=== PATIENT | female | born 1955 | race Hispanic/Latino ===

== ENCOUNTER 2018-07-01 12:26 | Inpatient (IN) | payer MEDICARE ==
[~2018-07-01] VITALS: Ht 170.2 cm; Wt 73.9 kg
[~2018-07-01 12:26] MED LIST: ABILIFY5 MG PO; ALBUTEROL0.63 MG/3 NEB; ALPRAZOLAM0.5 MG PO; ALPRAZOLAM1 MG PO; ARIMIDEX1 MG PO; B-123000 MCG PO; BUPROPION XL300 MG PO; CALCIUM 500+D1 EACH PO; CARISOPRODOL350 MG PO; CLONAZEPAM0.5 MG PO; CRESTOR20 MG PO; CYANOCOBAL1000 MCG/M IV; CYCLOBENZAPRINE5 MG PO; CYMBALTA30 MG PO; CYMBALTA60 MG PO; EVISTA60 MG PO; GABAPENTIN300 MG PO; GLUCOPHAGE1000 MG PO; INTEGRA CAPSUL1 EACH PO; INTEGRA PLUS C1 EACH PO; IPRATROPIU0.2 MG/1 M NEB; LOPRESSOR50 MG PO; LOSARTAN POTASS25 MG PO; LYRICA225 MG PO; MACROBID 100 M100 MG PO; MACRODANTIN50 MG PO; MINOCYCLINE HC100 M1; MIRTAZAPINE30 MG PO; NIASPAN500 MG; NORCO 10-325 T1 EACH PO; PEPCID20 MG PO; PRINIVIL5 MG PO; QUETIAPINE FUM100 MG PO; SEROQUEL XR150 MG PO; SEROQUEL25 MG PO; SEROQUEL400 MG PO; SERTRALINE HCL100 MG PO; SOMA350 MG PO; TRADJENTA5 MG PO; TRAZODONE HCL50 MG PO; ULTRAM50 MG PO; WELLBUTRIN XL300 MG PO; XANAX0.5 MG PO
--- OUTSIDE RECORDS SUMMARY | 2018-07-01 12:30 | XMS REPORT | Clinical Summary ---
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 cyst in the subcapsular posterior right lobe of the liver measuring 18 mm. 3. Extensive postoperative changes in the stomach and changes from a previous cholecystectomy are noted. CT bone Windows: Demonstrate no lytic or blastic lesions.. 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 Images were reviewed in soft tissue and bone detail. CT imaging was performed with iterative reconstruction technique and/or automated exposure control to reduce radiation dose. Comparison: None. Findings: Evaluation of the aerodigestive tract demonstrates no definite exophytic mass, nor areas of focal mass effect noting contrast enhanced study is more sensitive for the detection of mass. . No pathologic cervical lymph nodes by imaging criteria noting contrast enhanced study is more sensitive for the detection of lymphadenopathy. No focal mass of the major salivary glands. Possible right parotid surgery, correlate with surgical history. No dominant thyroid nodule. Right IJ port. Degenerative changes of the cervical spine. For intrathoracic findings, see separate report of chest CT which was performed at the same time but interpreted separately. Impression: Within confines of noncontrast study, no definite focal mass of the visualized aerodigestive tract. No definite pathologic cervical lymph nodes by imaging criteria. 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 Images were reviewed in soft tissue and bone detail. CT imaging was performed with iterative reconstruction technique and/or automated exposure control to reduce radiation dose. Comparison: None. Findings: Evaluation of the aerodigestive tract demonstrates no definite exophytic mass, nor areas of focal mass effect noting contrast enhanced study is more sensitive for the detection of mass. . No pathologic cervical lymph nodes by imaging criteria noting contrast enhanced study is more sensitive for the detection of lymphadenopathy. No focal mass of the major salivary glands. Possible right parotid surgery, correlate with surgical history. No dominant thyroid nodule. Right IJ port. Degenerative changes of the cervical spine. For intrathoracic findings, see separate report of chest CT which was performed at the same time but interpreted separately. Impression: Within confines of noncontrast study, no definite focal mass of the visualized aerodigestive tract. No definite pathologic cervical lymph nodes by imaging criteria. [id number] Performing Organization Address City/State/Zipcode Phone Number [facility] [address] [place] [address] * MRI Brain Wo Contrast (01/03/2018 10:35 AM CDT) Narrative Performed At EXAMINATION:MRI BRAIN WO CONTRAST [facility] CLINICAL HISTORY:C50.919 Malignant neoplasm of unspecified site of unspecified female breast, C80.0 Disseminated malignant neoplasmunspecified, BREAST CANCER WWIDESPREAD METSHEADACHESNAUSEA COMPARISON:CT brain March 04, 2014. FINDINGS: 1. Diffusion images demonstrate no evidence of acute ischemia. 2.Conventional images demonstrate mild nonspecific cerebral white matter microvascular changes. There is mild to moderate cerebral cortical volume loss most pronounced over the frontoparietal high convexities. 3.There is minimal mucosal thickening in the ethmoid sinus. 4.There is mild prominence of the superior ophthalmic veins bilaterally primarily on the left side. There is no evidence of a cavernous sinus mass. There is a partially empty sella which is not significantly enlarged. IMPRESSION: Mild cerebral white matter microvascular changes and volume loss without evidence of an acute abnormality. The microvascular white matter changes are not visible on the prior study. [id number] Procedure Note Interface, Radiology Results Incoming - 01/03/2018 10:49 AM CDT EXAMINATION: MRI BRAIN WO CONTRAST CLINICAL HISTORY: C50.919 Malignant neoplasm of unspecified site of unspecified female breast, C80.0 Disseminated malignant neoplasm unspecified, BREAST CANCER W WIDESPREAD METS HEADACHES NAUSEA COMPARISON: CT brain March 04, 2014. FINDINGS: 1. Diffusion images demonstrate no evidence of acute ischemia. 2. Conventional images demonstrate mild nonspecific cerebral white matter microvascular changes. There is mild to moderate cerebral cortical volume loss most pronounced over the frontoparietal high convexities. 3. There is minimal mucosal thickening in the ethmoid sinus. 4. There is mild prominence of the superior ophthalmic veins bilaterally primarily on the left side. There is no evidence of a cavernous sinus mass. There is a partially empty sella which is not significantly enlarged. IMPRESSION: Mild cerebral white matter microvascular changes and volume loss without evidence of an acute abnormality. The microvascular white matter changes are not visible on the prior study. 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 IMPRESSION: The results of this study expressed as bone mineral density (BMD) were as follows: AP spine (L1-L4) BMD: 1.062 g/cm2 T-Score: 0.1 WHO Classification: Normal. Right Femur (Total): BMD: 0.825 g/cm2 T-Score: -1 WHO Classification: Normal Left Femur (Total): BMD: 0.805 g/cm2 T-Score: -1.1 WHO Classification: Osteopenia A copy of this scans including a report detailing these results will follow. 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 IMPRESSION: The results of this study expressed as bone mineral density (BMD) were as follows: AP spine (L1-L4) BMD: 1.062 g/cm2 T-Score: 0.1 WHO Classification: Normal. Right Femur (Total): BMD: 0.825 g/cm2 T-Score: -1 WHO Classification: Normal Left Femur (Total): BMD: 0.805 g/cm2 T-Score: -1.1 WHO Classification: Osteopenia A copy of this scans including a report detailing these results will follow. Note: The world health organization (WHO) has classified the patient's T-score as follows: Above (-1) as normal (-1) to (-2.5) as low (osteopenia) Below (-2.5) as abnormally low (osteoporosis, increased fracture risk) [id number] Performing Organization Address City/State/Zipcode Phone Number [facility] [address] [place] [address] * Echocardiogram complete w contrast and 3D if needed (11/10/2017 10:02 AM CDT) AoV Area, Vmax 2.39 cm2 [facility] AoV Area, VTI 2.63 cm2 [facility] AoV Mean PG 2.89 mmHg [facility] AoV Peak PG 5.73 mmHg [facility] AoV Vmax 1.20 m/s [facility] AoV VTI 0.25 m [facility] BSA Sanchez 1.88 m2 [facility] BSA 1.84 m2 [facility] IVS,d 1.19 cm [facility] IVS/LVPW,2D 1.23 [facility] LV,d 3.89 cm [facility] LV EF,2D 67.16 % [facility] LV EF,A2C 56.96 % [facility] LV EF,A4C 57.31 % [facility] LV EF,BP 59.25 % [facility] Jossue Wittenberg,d A2C 6.66 cm [facility] Jossue Wittenberg,d A4C 7.50 cm [facility] Jossue Wittenberg,s A2C 5.75 cm [facility] Jossue Wittenberg,s A4C 5.66 cm [facility] LV,s 2.68 cm [facility] LV SV,A2C 49.36 % [facility] LV SV,A4C 63.63 % [facility] LV SV,BP 61.25 % [facility] LV Vol,d A2C 86.65 mL [facility] LV Vol,d A4C 111.03 ml [facility] LV Vol,d BP 103.37 ml [facility] LV Vol,s A2C 37.30 mL [facility] LV Vol,s A4C 47.40 ml [facility] LV Vol,s BP 42.12 nl [facility] LVOT area 3.05 cm2 [facility] LVOT Diam,S 1.97 cm [facility] LVOT Vmax 0.94 m/s [facility] LVOT VTI 0.21 m [facility] LVPWD,d 0.97 cm [facility] TR Vpeak 2.74 mm/s [facility] MV E A ratio 0.81 mmHg [facility] RA pressure 5.00 mmHg [facility] TR pk grad 23.03 mmHg [facility] AoV area i VTI BSA Claudio 1.42 cm2/m2 [facility] LV SI MOD BP BSA [place] 33.22 ml/m2 [facility] LV Vol Index s bpmod BSA 56.06 ml/m2 [facility] Claudio PV Vmn 22.84 m/s [facility] MR Vmax 4.25 m/s [facility] MR peak grad 72.24 mmHg [facility] BMI 25.22 kg/m2 [facility] E wave decelartion time 216.05 msec [facility] MV Peak A Antony 0.96 m/s [facility] MV valve area p 1/2 3.51 cm2 [facility] method MV Peak E Antony 0.78 m/s [facility] MV stenosis pressure 1/2 62.65 ms [facility] time AV LVOT peak gradient 3.50 mmHg [facility] RVSP 35.11 mmHg [facility] LV SYS VOL 26.61 ml [facility] LV MASSEY VOL 65.51 ml [facility] LA area s A4C 20.44 cm2 [facility] LV SI Teich 2D 21.09 ml/m2 [facility] LV SV Teich 2D 38.89 ml [facility] LV Vol s Teich PSAX 26.61 ml [facility] LVOT SI 35.01 ml/m2 [facility] BSA Haycock 1.87 m2 [facility] AoV Cusp sep 1.49 [facility] AoV Vmn 0.81 [facility] IVS s 2D 1.48 [facility] LV FS Teich 2D 31.01 [facility] MV AE ratio 1.23 [facility] LA Ao Ratio Mmode 1.42 [facility] LV FS Cube 2D 31.01 [facility] LVOT Vmn 0.63 [facility] Pt Size 170.18 [facility] Pt Wt 73.03 [facility] PV AT 122.74 msec [facility] Aov area Vmn 2.38 cm2 [facility] LVOT mean grad 1.71 mmHg [facility] MAX Pred HR 157.43 [facility] 85 of MPHR 133.82 [facility] AoV area I VMN bsa 1.29 cm2/m2 [facility] Calc MPHR 157.43 bpm [facility] IVS pct thck PLAX 24.70 % [facility] LV SI Cube 2D 21.44 ml/m2 [facility] LV SV Cube 2D 39.53 ml [facility] LV vol d cube 2D 58.86 ml [facility] LV vol s cube 2D 19.33 ml [facility] LVPW pct thck PLAX 47.96 % [facility] LVPW s PLAX 1.43 cm [facility] MV Decel slope 3.63 m/s2 [facility] Pred Exer Dur R1 7.63 [facility] Pred METS R1 6.57 [facility] Velocity Ratio (V1/V2) 0.78 m/s [facility] EF 59.38 % [facility] E/A ratio 0.81 [facility] LV Systolic Volume Index 20.27 mL/m2 [facility] LV Diastolic Volume Index 47.09 mL/m2 [facility] LA volume 57.0 cm3 [facility] LA Volume Index 30.98 mL/m2 [facility] LA Area d A4C 52 cm2 [facility] LA diam s 4.10 cm [facility] Aortic Root 2.85 cm [facility] D E excurs 1.10 [facility] E f slope 0.04 [facility] E prime lat 0.10 [facility] E jaret sept 0.08 [facility] PV acc T slope 4.50 [facility] Narrative Performed At [facility] The left ventricle chamber size is normal. Left Ventricular ejection fraction is 55 - 60%. No pericardial effusion Spectral Doppler shows impaired relaxation pattern of left ventricular diastolic filling. Performing Organization Address City/State/Zipcode Phone Number [facility] [address] [place] [address] after 06/30/2017 Insurance Payer Benefit Subscriber ID Type Phone Address Plan / Group MEDICARE MEDICARE xxxxxxxxxxx Medicare [place], [place] PART A [place] B MEDICAID MEDICAID xxxxxxxxx Medicaid Advance Directives Patient has advance care planning documents, and code status on file. For more i nformation, please contact: Jorge Alcala [address] [place] [address] Date Inactivated Comments Code Status Date Activated 10/21/2016 10:03 PM Full Code 10/17/2016 4:57 PM Code Status decision reached by: Patient
--- OUTSIDE RECORDS SUMMARY | 2018-07-01 12:30 | XMS REPORT ---
[facility] Address Unknown Phone Unavailable Care Team Providers Care Visitor Use Assistant Name Role Phone Erendira MARIA Unavailable Unavailable Problems This patient has no known problems. Allergies, Adverse Reactions, Alerts This patient has no known allergies or adverse reactions. Medications This patient has no known medications. Results Test Description Test Time Test Comments Text Results Atomic Results Result Comments CT BRAIN WO [place] [address] Patient Name: ARANZA KUHN MR #: [id number] : 1955 Age/Sex: 61/F Req #: [id number] Adm Physician: Ordered by: GENEVA MARIA MD Report #: [id number] Location: ER Room/Bed: Procedure: [id number] CT/CT BRAIN WO Exam Date: 11/02/16 Exam Time: 1810 REPORT STATUS: Signed Examination: CT BRAIN WITHOUT CONTRAST History:61-year-old female with fall and left-sided head injury. Comparison studies:Head CT performed May 28, 2016 Technique: Axial images were obtained from the skull base to the vertex. Coronal and sagittal images reconstructed from the axial data. Intravenous contrast: None Findings: Scalp: No abnormalities. Bones: No fractures, blastic or lytic lesions. Brain sulci: Appropriate for age. Ventricles: Normal in size and configuration. No hydrocephalus. Extra-axial space: No abnormalities. Parenchyma: Again demonstrated are subtle confluent areas of hypoattenuation in the periventricular and subcortical white matter, nonspecific. No masses, hemorrhage, or acute cortical-based vascular insults. Sellar/suprasellar region: No abnormalities. Cr aniocervical junction: Patent foramen magnum. No Chiari one malformation. Incidental findings: None. Impression: 1. No new or acute intracranial abnormality. No change from prior head CT performed May 28, 2016. 2. Unchanged mild chronic microvascular ischemic change. Signed by: Dr. Ginger Gold M.D. on 11/02/2016 6:36 PM Dictated By: GINGER ROJAS MD 35 Transcribed By: ZAC on 11/02/161835 COPY TO: GENEVA MARIA MD CT CERVICAL SPINE WO [place] [address] Patient Name: ARANZA KUHN MR #: [id number] : 1955 Age/Sex: 61/F Req #: [id number] Adm Physician: Ordered by: GENEVA MARIA MD Report #: [id number] Location: ER Room/Bed: Procedure: [id number] CT/CT CERVICAL SPINE WO Exam Date: 11/02/16 Exam Time: 1809 REPORT STATUS: Signed Examination: CT CERVICAL SPINE WITHOUT CONTRAST HISTORY:Neck pain. Fall. COMPARISON:None. TECHNIQUE: Multidetector helical axial images were obtained without contrast from the foramen magnum to T1. Coronal and sagittal reforma tted images were done. Bone and soft tissue windows were evaluated. FINDINGS: Alignment:Normal alignment with straightening of normal lordosis. Vertebrae: Normal height and density. No acute fracture, infection or neoplasm. Disc space heights: Normal height. Caliber of spinal canal: Developmentally normal. Soft tissues: No abnormality. 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 C5-C6: Asymmetric to the left disc osteophyte complex and bilateral uncovertebral arthropathy results in mild right and moderate left neural foraminal narrowing and mild canal stenosis. The remaining cervical levels demonstrate no disc bulge/ herniation or foraminal or canal stenosis. IMPRESSION: 1. No acute abnormality. 2. Degenerative changes at C5-C6. Signed by: Dr. Ginger Gold M.D. on 11/02/2016 6:41 PM Dictated By: GINGER ROJAS MD 40 COPY TO: GENEVA MARIA MD FOREARM LEFT 2 VIEW [place] [address] Patient Name: ARANZA KUHN MR #: [id number] : 1955 Age/Sex: 61/F Req #: [id number] [facility] Physician: Ordered by: GENEVA MARIA MD Report #: [id number] Location: ER Room/Bed: Procedure: [id number] DX/FOREARM LEFT 2 VIEW Exam Date: 11/02/16 Exam Time: 1824 REPORT STATUS: Signed PROCEDURE: X-RAY LEFT FOREARM, TWO VIEWS COMPARISON: None. INDICATIONS: FALL FINDINGS: There are no fractures, dislocations, lytic or blastic lesions. The bones are well-mineralized. The soft-tissues are unremarkable. CONCLUSION: No acute radiographic abnormality. Dictated by: Kg Foster M.D. on 11/02/2016 at 18:51 Electronically approved by: Kg Foster M.D. on 11/02/2016 at 18:51 Dictated By: KG FOSTER MD 50 Transcribed By: NORMA on 11/02/161850 COPY TO: GENEVA MARIA MD HAND 3+ VIEWS LEFT [place] [address] Patient Name: ARANZA KUHN MR #: [id number] : 1955 Age/Sex: 61/F Req #: [id number] Adm Physician: Ordered by: GENEVA MARIA MD Report #: [id number] Location: ER Room/Bed: Procedure: [id number] DX/HAND 3+ VIEWS LEFT Exam Date: 11/02/16 Exam Time: 1824 REPORT STATUS: Signed PROCEDURE: X-RAY LEFT HAND, THREE OR MORE VIEWS COMPARISON: None. INDICATIONS: FALL FINDINGS: There are no fractures, dislocations, lytic or blastic lesions. The bones are well-mineralized. The soft-tissues are unremarkable. CONCLUSION: No acute radiographic abnormality. Dictated by: Kg Foster M.D. on 11/02/2016 at 18:53 Electronically approved by: Kg Foster M.D. on 11/02/2016 at 18:53 Dictated By: KG FOSTER MD 52 Transcribed By: NORMA on 11/02/161852 COPY TO: GENEVA MARIA MD
[2018-07-01] MEDS ORDERED: VANCOMYCIN 1GM/NS 250 ML 250 ML IV ONE (13:00)
[2018-07-01] MEDS ORDERED: LEVOFLOXACIN 750MG/D5W 150ML 150 ML IV SCH (13:00)
[2018-07-01 14:26] LABS: BILIRUBIN,URINE NEGATIVE (NEGATIVE); CLARITY,URINE CLEAR (CLEAR); COLOR,URINE STRAW (YELLOW); KETONES,URINE NEGATIVE (NEGATIVE); LEUKOCYTE ESTERASE ,URINE NEGATIVE (NEGATIVE); NITRITE,URINE NEGATIVE (NEGATIVE); PROTEIN,URINE DIPSTICK NEGATIVE (NEGATIVE); URINE UROBILINOGEN 0.2 mg/dL (0.2 - 1)
[2018-07-01] MEDS ORDERED: ALBUTEROL SULF 0.083% NEB SOLN 3 ML NEB NEB PRN (14:45)
[2018-07-01] MEDS ORDERED: IPRATROPIUM BROMIDE 0.02% 2.5 ML NEB NEB PRN (14:45)
[2018-07-01 14:59] LABS: WBC,URINE (MAN) 0-5 /HPF (0-5)
[2018-07-01 15:00] LABS: EPITHELIAL CELLS,URINE RARE /LPF; RBC,URINE 0-5 /HPF (0-5)
[2018-07-01 15:02] LABS: TRANSITIONAL EPI CELLS,URINE RARE
[2018-07-01 15:20] VITALS: BP 146/82
[2018-07-01] MEDS ORDERED: ACETAMINOPHEN 1000 MG/100 ML IV STA (15:43)
--- NOTE | 2018-07-01 15:46 | Diagnostic Imaging Report ---
EXAM: CHEST SINGLE (PORTABLE) DATE: 07/01/2018 3:21 PM INDICATION: ^PLEURAL EFFUSION COMPARISON: No previous exam available on PACS FINDINGS: Lines and tubes: There is a right chest port with catheter extending to the mid SVC level. The heart is upper normal size. No pulmonary consolidation, pleural effusion or pneumothorax. There are patchy opacities at the lung bases likely representing atelectasis, possibly accentuated by low lung volumes. Mild elevation of the left hemidiaphragm. Upper abdomen unremarkable with surgical clips seen in the left upper quadrant. No acute bony abnormality. IMPRESSION: Borderline heart size. Patchy opacities the lung bases likely due to atelectasis. In the proper clinical setting this may represent early multifocal pneumonia. Signed by: Dr. Santino Baez M.D. on 07/01/2018 3:43 PM
[2018-07-01 15:53] LABS: BASOPHILS % 0.2 % (0.0-1.0); EOSINOPHILS # (AUTO) 0.1 (0.0-0.4); EOSINOPHILS % 1.5 % (0.0-6.0); HEMATOCRIT 34.1 % (34.2-44.1); HEMOGLOBIN 11.2 g/dL (12.0-16.0); LYMPHOCYTES # (AUTO) 0.9 (1.0-3.2); LYMPHOCYTES % 9.1 % (18.0-39.1); MEAN CORPUSCULAR HGB CONC 32.8 g/dL (31-35); MEAN CORPUSCULAR VOLUME 91.4 fL (81-99); MONOCYTES # (AUTO) 0.6 (0.2-0.8); MONOCYTES % 6.3 % (4.4-11.3); NEUTROPHILS # (AUTO) 7.8 (2.1-6.9); NEUTROPHILS % 82.4 % (38.7-80.0); PLATELET COUNT 222 x10e3/uL (140-360); RED BLOOD COUNT 3.73 x10e6/uL (3.6-5.1); RED CELL DISTRIBUTION WIDTH 13.7 % (11.7-14.4)
[2018-07-01 16:03] VITALS: BP 146/78
[2018-07-01] MEDS: SODIUM CHLORIDE 0.9% 1000ML 1,000 ML IV SCH ×3 (16:05→21:03)
--- NOTE | 2018-07-01 16:10 | Diagnostic Imaging Report ---
EXAM: CT Chest WITHOUT contrast 07/01/2018 1:00 PM INDICATION: Pneumonia COMPARISON: Chest x-ray, 07/01/2018; chest CT, 05/26/2016 TECHNIQUE: Chest was scanned utilizing a multidetector helical scanner from the lung apex through the level of the adrenal glands without administration of IV contrast. Absence of intravenous contrast decreases sensitivity for detection of lymphadenopathy and vascular pathology. Coronal and sagittal reformations were obtained. Routine protocol was performed. Dose modulation, iterative reconstruction, and/or weight based adjustment of the mA/kV was utilized to reduce the radiation dose to as low as reasonably achievable. IV CONTRAST: None RADIATION DOSE: Total DLP: 544.72 mGy*cm Estimated effective dose: (DLP x 0.014 x size factor) mSv COMPLICATIONS: None FINDINGS: LINES/ TUBES: There is a right chest port with IJ catheter extending to the mid superior vena cava. LUNGS AND AIRWAYS: There are mild centrilobular emphysematous changes. There is extensive patchy airspace opacity in the base of the right upper lobe and throughout the right lower lobe. This is present to a slightly lesser degree throughout the left lower lobe. Trachea and main bronchi are clear. PLEURA: No pleural effusion or pneumothorax. HEART AND MEDIASTINUM: The thyroid gland is normal. No mediastinal, hilar or axillary lymphadenopathy. Small prevascular and precarinal nodes are stable from last exam. The heart is normal in size.. There is no pericardial effusion. Left hemidiaphragm is elevated. No dilatation of the thoracic aorta or main pulmonary artery. The esophagus is noted to be moderately distended and fluid-filled, similar to previous exam. UPPER ABDOMEN: Included portions of the unenhanced liver shows a 1.3 cm hypodensity in the posterior right lobe which is ill-defined due to artifact. This appears to been present on the previous exam. Surgical clips are seen in the gallbladder fossa. Splenic calcified granulomata are noted. No adrenal nodules. Again noted are surgical changes to the stomach. BONES: No acute or suspicious bony lesions. SOFT TISSUES: Superficial surrounding soft tissue shows postoperative changes in the left breast. Small nodule in the right breast unchanged in appearance from previous CT. IMPRESSION: 1. Extensive ill-defined groundglass opacities in the right upper and lower lobes, and to a lesser extent in the left upper and lower lower lobes. Findings compatible with multifocal pneumonia. In view of distended, fluid-filled esophagus, aspiration is a concern. Consider follow-up CT after treatment to assure there are no underlying masses. 2. Stable hypodensity in the right lobe of the liver. This is less well seen than on previous exam because of artifact. Previously this was felt to be a fluid-filled abnormality. 3. Interval placement of right chest port since previous CT. 4. Postoperative changes of the left breast. Small nodular density in the right breast is unchanged from the previous CT. This may be further evaluated with mammography. Signed by: Dr. Santino Baez M.D. on 07/01/2018 4:07 PM
[2018-07-01 16:15] LABS: ALANINE AMINOTRANSFERASE 28 IU/L (0-55); ALBUMIN 3.2 g/dL (3.5-5.0); ALBUMIN/GLOBULIN RATIO 1.1 (0.8-2.0); ALKALINE PHOSPHATASE 95 IU/L (40-150); ANION GAP 12.1 mmol/L (8-16); BLOOD UREA NITROGEN 12 mg/dL (7-26); BUN/CREATININE RATIO 17 (6-25); CALCIUM 7.8 mg/dL (8.4-10.2); CARBON DIOXIDE 23 mmol/L (22-29); CHLORIDE 107 mmol/L (98-107); CREATININE, SERUM 0.71 mg/dL (0.57-1.11); EST GLOMERULAR FILTRATION RATE > 60 ML/MIN (60-); GLUCOSE 139 mg/dL (74-118); POTASSIUM 3.1 mmol/L (3.5-5.1); SODIUM 139 mmol/L (136-145)
[2018-07-01 16:16] VITALS: BP 141/71
[2018-07-01] MEDS: DOXYCYCLINE 100MG/NS 100ML 100 ML IV SCH (16:16)
[2018-07-01] MEDS: MEROPENEM 1GM 100 ML IV SCH ×2 (16:16→21:38)
[2018-07-01 16:20] LABS: INR 0.98; PROTHROMBIN TIME 13.5 seconds (11.9-14.5)
--- NOTE | 2018-07-01 16:25 | NUR ---
recvd pt, post rapid response from CT where pt was reportedly change in status from when picked up for testing. pt currently stable, receiving IVF and abx. MD notified of test and lab results, MD on unit.
[2018-07-01] MEDS: IRON FUM PO SCH (16:41)
[2018-07-01] MEDS: VIT B PO SCH (16:41)
[2018-07-01] MEDS: GABAPENTIN 300 MG CAP PO SCH ×2 (16:41→20:56)
[2018-07-01] MEDS: C NO 9 PO SCH (16:41)
[2018-07-01] MEDS: [UNRECOGNIZED DRUG - OTHER] PO SCH (16:41)
[2018-07-01] MEDS: HYDROCODONE/APAP 10MG-325MG TAB PO PRN ×2 (16:42→20:56)
[2018-07-01] MEDS ORDERED: POTASSIUM CHLORIDE 20 MEQ TAB CR PO NR (17:00)
[2018-07-01] MEDS ORDERED: AMBIEN10 MG PO (18:00)
[2018-07-01] MEDS ORDERED: MAGNESIUM OXID400 MG PO (18:00)
[2018-07-01] MEDS ORDERED: VOLTAREN100 GM PO (18:00)
[2018-07-01] MEDS ORDERED: MULTI-VITAMIN1 EACH PO (18:00)
[2018-07-01] MEDS ORDERED: MELATONIN 1 MG1 EACH PEG (18:00)
[2018-07-01] MEDS ORDERED: REQUIP0.25 MG PO (18:00)
[2018-07-01] MEDS ORDERED: CALCIUM ACETAT667 MG PO (18:00)
[2018-07-01] MEDS ORDERED: PERCOCET 10-321 EACH PEG (18:00)
[2018-07-01] MEDS ORDERED: ANASTROZOLE1 MG PEG (18:00)
[2018-07-01] MEDS ORDERED: VITAMIN B-121000 MC1 PO (18:00)
[2018-07-01 19:20] VITALS: BP 109/58
[2018-07-01] MEDS: DULOXETINE HCL 30 MG DELAYED RELEASE PO SCH (20:55)
[2018-07-01] MEDS: QUETIAPINE FUMARATE 100 MG PO SCH (20:55)
[2018-07-01] MEDS: [UNRECOGNIZED DRUG - OTHER] PO SCH (20:55)
--- NOTE | 2018-07-01 20:58 | NUR ---
PATIENT TRANSFER TO OBS UNIT 175 @2051 WITH STABLE CONDITION.
[2018-07-01] MEDS ORDERED: ZOLPIDEM TARTRATE 5 MG TAB PO PRN (21:00)
[2018-07-01 21:24] VITALS: BP 113/59
[2018-07-01] MEDS ORDERED: SODIUM CHLORIDE 0.9% 250ML 250 ML ONE (21:40)
[2018-07-01 23:48] VITALS: BP 120/54
[2018-07-02] VITALS (7 sets, daily range): BP systolic 120–142; BP diastolic 54–75
[2018-07-02] MEDS: HYDROCODONE/APAP 10MG-325MG TAB PO PRN ×6 (01:11→22:03)
[2018-07-02] MEDS: DOXYCYCLINE 100MG/NS 100ML 100 ML IV SCH (02:00)
[2018-07-02] MEDS: MEROPENEM 1GM 100 ML IV SCH (05:03)
[2018-07-02 05:31] LABS: BASOPHILS % 0.2 % (0.0-1.0); EOSINOPHILS # (AUTO) 0.2 (0.0-0.4); EOSINOPHILS % 1.4 % (0.0-6.0); HEMOGLOBIN 10.5 g/dL (12.0-16.0); LYMPHOCYTES # (AUTO) 3.3 (1.0-3.2); LYMPHOCYTES % 20.1 % (18.0-39.1); MEAN CORPUSCULAR HEMOGLOBIN 29.7 pg (28-32); MEAN CORPUSCULAR HGB CONC 32.8 g/dL (31-35); MEAN CORPUSCULAR VOLUME 90.7 fL (81-99); MONOCYTES # (AUTO) 1.2 (0.2-0.8); MONOCYTES % 7.3 % (4.4-11.3); NEUTROPHILS # (AUTO) 11.4 (2.1-6.9); NEUTROPHILS % 70.7 % (38.7-80.0); PLATELET COUNT 220 x10e3/uL (140-360); RED BLOOD COUNT 3.53 x10e6/uL (3.6-5.1)
[2018-07-02 06:08] LABS: ALANINE AMINOTRANSFERASE 27 IU/L (0-55); ALBUMIN 3.2 g/dL (3.5-5.0); ALBUMIN/GLOBULIN RATIO 1.1 (0.8-2.0); ALKALINE PHOSPHATASE 93 IU/L (40-150); BLOOD UREA NITROGEN 13 mg/dL (7-26); BUN/CREATININE RATIO 20 (6-25); CALCIUM 8.9 mg/dL (8.4-10.2); CARBON DIOXIDE 29 mmol/L (22-29); CHLORIDE 105 mmol/L (98-107); CREATININE, SERUM 0.66 mg/dL (0.57-1.11); EST GLOMERULAR FILTRATION RATE > 60 ML/MIN (60-); GLUCOSE 109 mg/dL (74-118); SODIUM 138 mmol/L (136-145)
--- NOTE | 2018-07-02 07:10 | NUR ---
RCD PT AT BED PT IS ALERT AND ORIENTED PT RESTING ON BED NO SIGNS OF ANY DISTRESS NOTED BED LOW AND LOCKED CALL LIGHT IN REACH
[2018-07-02] MEDS: ALPRAZOLAM 0.5 MG TAB PO PRN (08:40)
[2018-07-02] MEDS: VIT B PO SCH ×2 (08:47→17:00)
[2018-07-02] MEDS: BUPROPION HCL 150 MG TABCR PO SCH (08:47)
[2018-07-02] MEDS: ANASTROZOLE 1 MG TAB PO SCH (08:47)
[2018-07-02] MEDS: IRON FUM PO SCH ×2 (08:47→17:00)
[2018-07-02] MEDS: [UNRECOGNIZED DRUG - OTHER] PO SCH ×2 (08:47→17:00)
[2018-07-02] MEDS: GABAPENTIN 300 MG CAP PO SCH ×3 (08:47→20:32)
[2018-07-02] MEDS: C NO 9 PO SCH ×2 (08:47→17:00)
[2018-07-02] MEDS ORDERED: BUPROPION HCL 300 MG PO SCH (09:00)
--- NOTE | 2018-07-02 10:10 | NUR ---
CASE MANAGEMENT INITIAL ASSESSMENT Lavatory Attendant to bedside to discuss plan of care with patient/family. CM/SW role and care transitions discussed. Anticipated discharge plan discussed along with duration of care. CM/SW discussed patients right to make decisions in care. CM/SW work hours given. Patient lives: ALONE IN [facility] IN [place], [place] Admit/Transfer: ER, WAS SENT THERE BY HIS SECTION CHIEF DR. Valeria VALERA Hospital/ER visits since last admit:DENIES ANY RECENT POA/Emergency contact: DAUGHTER: MAIDA ANDERS [phone] Current/Previous Home Health: PHYSICAL THERAPIST COMES EVERY WEDNESDAY, BUT DOES NOT KNOW NAME OF COMP. DENIES ANY SN PCP/Follow-up Care: NONE. DR. Valeria VALERA IS SECTION CHIEF. GOES TO [facility] [address] OR CHEMOTHERAPY (BREAST CA ST 4 W/ METS) Current/Previous DME: CANE Medications (referring to index hospitalization or the first time you were in the hospital) a. Were changes made in your medications when you were in the hospital on [date of index hospitalization]? Yes X No Not sure Explain: Note: If no or not sure, please skip to question d b. Did you understand the changes? Yes No Explain: c. Were you able to obtain your new medications right away? Yes No n/a SNF only Explain: d. Were you able to take your medications like the doctor wanted you to? X Yes No Explain: BUT CANNOT AFFORD ALL OF HER MEDICATION AND IS REQUESTING SOME ASSISTANCE e. Did the hospital give you an accurate, easy to understand list of medications when you left? X Yes No n/a SNF only Explain: Scale of 1-10 how comfortable does patient feel with disease management in outpatient settin Other Services: Employment Status: DISABLED Areas of Concerns: CANNOT AFFORD MEDS; SEPERATED FROM BUT LIVES IN HIS HOME, WANTS HOME HEALTH/PROVIDER SERVICES. MESSAGE LEFT FOR MD REQUESTING ORDER FOR THIS. Referral Needs: GRIDDLE ATTENDANT TO ASSIST W/ AFFORDABILITY OF MEDICATION Education Needs: SELF CARE NEEDS IMM/GARY given and signed (if applicable): GARY LETTER EXPLAINED AND SHE VERBALIZED UNDERSTANDING AND SIGNED. COPY TO PT AND ORIGINAL PLACED IN CHART. Goal for discharge: TO DC HOME W/ HOME HEALTH FOR SN AND SW EVAL; ASSISTANCE WITH OBTAINING MEDS CM/SW left business card at the bedside with contact information. Name and number was also written on the patients whiteboard. Patient verbalized understanding of discussion. CM will follow-up with ongoing discharge and transition of care needs.
[2018-07-02] MEDS ORDERED: LINEZOLID 600 MG/D5W 300ML 300 ML IV SCH (11:30)
[2018-07-02] MEDS ORDERED: AZITHROMYCIN 500MG/NS 250 ML 250 ML IV SCH (11:30)
[2018-07-02] MEDS: AZITHROMYCIN 500MG/NS 250 ML 250 ML IV SCH (12:30)
[2018-07-02] MEDS: SODIUM CHLORIDE 0.9% 1000ML 1,000 ML IV SCH (13:00)
--- NOTE | 2018-07-02 13:07 | Diagnostic Imaging Report ---
Ventilation/perfusion lung scan Clinical Information: 63 F with SOB and chest pain Comparison: Chest radiograph Discussion: Xenon-133 gas 15 mCi was administered via inhalation. Dynamic images of the lungs in the posterior projection were obtained through single breath, equilibrium, and washout phases. Distribution of tracer activity is irregular throughout the lungs. There are no segmental ventilatory defects. Washout of tracer is diffusely delayed with diffuse air trapping. Perfusion images of the lungs were obtained in multiple projections following intravenous administration of approximately 6 mCi of Tc-99m MAA. Distribution of tracer is irregular throughout the lungs. The contours of the lungs are well demarcated. There are no segmental perfusion defects of any size. Mild elevation of the left sharonda-diaphragm. The cardiomediastinal silhouette is unremarkable. Impression: 1. Scan findings represent a VERY LOW probability for acute pulmonary embolic disease based on the PIOPED II criteria. 2. Scan evidence of obstructive lung disease. Signed by: Dr. Lisandra Chaparro M.D. on 07/02/2018 1:04 PM
[2018-07-02] MEDS: MEROPENEM 500MG/ NS 50ML 50 ML IV SCH ×2 (13:52→21:14)
--- NOTE | 2018-07-02 14:21 | Progress Note ---
DATE: 07/02/2018 Pulmonary Critical Care Progress Note SUBJECTIVE: The patient had some fever last night. She is having less chills. She still does not have cough, although she does have some dyspnea. PHYSICAL EXAMINATION: VITAL SIGNS: The patient was febrile to 99.6 last night. The blood pressure is 140/61 and saturation 96%. HEENT: Shows no facial swelling or erythema. The nasal mucosa is normal. The oropharynx is normal. LYMPHATIC: Shows no submandibular, cervical, or supraclavicular adenopathy. CARDIAC: Reveals a regular rate and rhythm with a normal S1 and S2. There are no murmurs or rubs. LUNGS: Auscultation of lungs reveals clear breath sounds bilaterally. There is no wheezing. ABDOMEN: Soft, nontender. There is no rebound or guarding. EXTREMITIES: Show no leg edema or calf tenderness. IMPRESSION: 1. Pneumonia in a patient with immunosuppression. 2. Stage IV breast cancer. 3. Hypokalemia. 4. Remote history of pulmonary embolism. PLAN: 1. Continue current antibiotics. 2. Await culture results. 3. Repeat CBC in the morning. 4. Echocardiogram. Parag Castanon MD [facility]/GUERDA /[id number]
[2018-07-02] MEDS: LINEZOLID 600 MG/D5W 300ML 300 ML IV SCH (14:30)
--- NOTE | 2018-07-02 15:46 | Consultation ---
DATE OF CONSULTATION: 07/02/2018 HISTORY OF PRESENT ILLNESS: Patient of Dr. Parag Castanon, Pulmonology. I saw Dr. Castanon yesterday at [facility] towards the late evening. He was about the consult and he had requested us to see this patient and was admitted here for cough and possibility of pneumonia. Ms. Tran is a 63-year-old lady, very pleasant, stage IV breast cancer with mets on chemo once a week for life. She has been having coughing with progressive worsening in the past two weeks now it hurts every time she coughs. The patient was admitted through Pulmonology, Dr. Castanon for evaluation and treatment. She denied any shortness of breath. She denied any nausea, vomiting, or chills, however, she states that she had some low-grade fever and shakes. This thing has been going on for a couple of weeks. No diarrhea. I have reviewed the home medications with the patient in the room and this case was discussed with Dr. Caputo in details. PAST MEDICAL HISTORY: Metastatic breast cancer stage IV on chemo for life once a week, chronic pain, neuropathy, debility, and depression. ALLERGIES: THE PATIENT HAS MULTIPLE ALLERGIES AND SHE STATES THAT SHE DEVELOPED SHORTNESS OF BREATH EVERY TIME SHE TAKES THESE MEDICATIONS, HOWEVER, SHE CAN'T TELL WHICH ONE IS WHICH, BUT THE LIST OF ALLERGIES INCLUDE FRANCIS INHIBITORS, KEFLEX, PROCHLORPERAZINE, MALEATE, AND PROCHLORPERAZINE EDISYLATE. MOSTLY ALLERGIC TO PENICILLIN, LATEX, LEVAQUIN, VANCOMYCIN, TRAMADOL, ADHESIVE TAPE, CIPROFLOXACIN, NITROFURANTOIN, AND AZACTAM MEDICATIONS: Medication list has been reviewed as far as Infectious Disease point of view, the patient is on doxycycline and meropenem without any complications. LABORATORY STUDIES: White blood cells 16.16, hemoglobin 10.5, platelet 220. Sodium 138, potassium 4, and creatinine 0.66. Influenza A/B screen is negative. Urine culture sent. However, UA shows no nitrites or no leukocyte esterase. Microbiology, blood culture, urine culture, and MRSA screen are pending. RADIOLOGY: CT of the chest was done and suggests ground-glass opacities in the right upper and lower lobes and to a lesser extent in the left upper and lower lobes finding compatible with multifocal pneumonia and review with distended fluid-filled esophagus. Aspiration is a concern. Also stable hypodensity in the right lobe of the liver. Other radiology studies including V/Q scan and echocardiogram are pending. REVIEW OF SYSTEMS: Chills better, still not up to par. Shakes have improved. Fever resolved. is in room on discussed with the as well. He has been keeping you to add what he agrees with what the patient says, remains with cough but seems to be better. PHYSICAL EXAMINATION: GENERAL: Alert and oriented, in bed, in no acute distress. VITAL SIGNS: Temperature is 99.3, pulse 81, respirations 18, blood pressure 140s/73, CV S1-S2. CHEST: Decreased breath sounds. Equal expansion. No acute distress. ABDOMEN: Soft, obese, nontender. Bowel sounds positive in four quadrants. HEENT: Moist. No pallor. No JVD. EXTREMITIES: Weak. Currently ambulates with a rolling walker, but prior to all of this patient was doing normal daily routine including driving to Dr. Alonzo office and get examine. ASSESSMENT AND PLAN: This is a 63-year-old , very pleasant lady with a stage IV breast cancer metastasized on chemotherapy once a week for life, developed cough and shortness of breath and low-grade temperature, progressive worsening of the cough leading up to pain and each cough in the thorax area. The patient admitted CT studies suggest multifocal pneumonia. The patient has multiple allergies to antibiotics reviewed, which is currently on meropenem and doxycycline. We will change antibiotics. Please refer to the progress note for change of antibiotics. Monitor patient clinically. Follow up with the labs. Further management of this patient based on daily finding on laboratory and physical examination. Thank you for this kind consult. MD ANGELY Arana/GUERDA /[id number]
--- NOTE | 2018-07-02 18:52 | NUR ---
PT RESTING ON BED BED SIDE REPORT GIVEN TO ONCOMING NURSE
[2018-07-02] MEDS: ALPRAZOLAM 1 MG TAB PO SCH (20:32)
[2018-07-02] MEDS: DULOXETINE HCL 30 MG DELAYED RELEASE PO SCH (20:32)
[2018-07-02] MEDS: [UNRECOGNIZED DRUG - OTHER] PO SCH (20:32)
[2018-07-02] MEDS: QUETIAPINE FUMARATE 100 MG PO SCH (20:32)
[2018-07-03] VITALS (7 sets, daily range): BP systolic 117–179; BP diastolic 62–78
[2018-07-03] MEDS: ALPRAZOLAM 0.5 MG TAB PO PRN (00:44)
[2018-07-03] MEDS: LINEZOLID 600 MG/D5W 300ML 300 ML IV SCH ×2 (01:40→14:30)
[2018-07-03] MEDS: HYDROCODONE/APAP 10MG-325MG TAB PO PRN ×4 (05:03→22:33)
[2018-07-03] MEDS: MEROPENEM 500MG/ NS 50ML 50 ML IV SCH ×3 (05:03→21:03)
[2018-07-03 05:49] LABS: BASOPHILS % 0.2 % (0.0-1.0); EOSINOPHILS # (AUTO) 0.5 (0.0-0.4); EOSINOPHILS % 3.8 % (0.0-6.0); HEMATOCRIT 33.7 % (34.2-44.1); HEMOGLOBIN 10.9 g/dL (12.0-16.0); LYMPHOCYTES # (AUTO) 2.8 (1.0-3.2); MEAN CORPUSCULAR HEMOGLOBIN 29.8 pg (28-32); MEAN CORPUSCULAR HGB CONC 32.3 g/dL (31-35); MEAN CORPUSCULAR VOLUME 92.1 fL (81-99); MONOCYTES # (AUTO) 0.9 (0.2-0.8); MONOCYTES % 7.6 % (4.4-11.3); NEUTROPHILS # (AUTO) 7.9 (2.1-6.9); NEUTROPHILS % 65.1 % (38.7-80.0); PLATELET COUNT 223 x10e3/uL (140-360); RED BLOOD COUNT 3.66 x10e6/uL (3.6-5.1); RED CELL DISTRIBUTION WIDTH 13.8 % (11.7-14.4)
--- NOTE | 2018-07-03 07:10 | NUR ---
RCD PT AT BED PT IS ALERT AND ORIENTED PT RESTING ON BED NO SIGNS OF ANY DISTRESS NOTED IV PATENT BED LOW AND LOCKED CALL LIGHT IN REACH
--- NOTE | 2018-07-03 07:25 | Diagnostic Imaging Report ---
EXAMINATION: CHEST 2 VIEWS INDICATION: Pneumonia. COMPARISON: Chest radiograph 07/01/2018, CT chest 07/01/2018. FINDINGS: TUBES and LINES: Right-sided chest port with tip terminating in the expected location of the mid SVC. LUNGS: Lungs are moderately inflated. There are patchy opacities in the bilateral lower lung zones, right greater than left. There is subsegmental atelectasis at the left lung base. PLEURA: No pleural effusion or pneumothorax. HEART AND MEDIASTINUM: The cardiomediastinal silhouette is unremarkable. BONES AND SOFT TISSUES: No acute osseous abnormality. UPPER ABDOMEN: No free air under the diaphragm. Surgical clips are present in the upper abdomen. IMPRESSION: Patchy opacities in the bilateral lower lung zones, consistent with pneumonia. Suggest follow-up chest radiograph in 6-8 weeks to assess for resolution. Signed by: Dr. Fausto Haro MD on 07/03/2018 7:22 AM
[2018-07-03] MEDS: BUPROPION HCL 150 MG TABCR PO SCH (09:00)
[2018-07-03] MEDS: [UNRECOGNIZED DRUG - OTHER] PO SCH ×2 (09:00→17:00)
[2018-07-03] MEDS: VIT B PO SCH ×2 (09:00→17:00)
[2018-07-03] MEDS: IRON FUM PO SCH ×2 (09:00→17:00)
[2018-07-03] MEDS: C NO 9 PO SCH ×2 (09:00→17:00)
[2018-07-03] MEDS: ANASTROZOLE 1 MG TAB PO SCH (09:00)
[2018-07-03] MEDS: GABAPENTIN 300 MG CAP PO SCH ×3 (09:00→21:02)
[2018-07-03] MEDS: AZITHROMYCIN 500MG/NS 250 ML 250 ML IV SCH (12:30)
--- NOTE | 2018-07-03 18:41 | NUR ---
PT RESTING ON BED BED SIDE REPORT GIVEN TO ONCOMING NURSE
--- NOTE | 2018-07-03 19:00 | NUR ---
Report and rounds completed. Patient in bed watching TV with call light at side. Will continue to monitor.
--- NOTE | 2018-07-03 20:47 | NUR ---
Spoke with Dr Castanon about home med that is not available due to dont carry Seroquel XL 100 mg and patient requesting medication to be changed to seroquel 100mg po at bedtime.
[2018-07-03] MEDS: DULOXETINE HCL 30 MG DELAYED RELEASE PO SCH (21:02)
[2018-07-03] MEDS: ALPRAZOLAM 1 MG TAB PO SCH (21:03)
[2018-07-03] MEDS: QUETIAPINE FUMARATE 100 MG TAB PO SCH (21:03)
[2018-07-04] VITALS (8 sets, daily range): BP systolic 95–167; BP diastolic 50–73
--- NOTE | 2018-07-04 02:07 | History and Physical ---
Please refer to the consult note in chart. IMPRESSION: Pneumonia and the patient is immunocompromised, who is allergic to several antibiotics. Recommend to change her to meropenem, linezolid, and azithromycin since she is allergic to penicillin, cephalexin, aztreonam, nitrofurantoin and I was told she is also allergic to vancomycin and Levaquin. Await blood cultures and sputum cultures as ordered. Recheck CBC. Recheck Chem panel. We will follow up clinically. MD ANGELY Arana/GUERDA /[id number]
[2018-07-04] MEDS: HYDROCODONE/APAP 10MG-325MG TAB PO PRN ×4 (02:20→20:06)
[2018-07-04] MEDS: LINEZOLID 600 MG/D5W 300ML 300 ML IV SCH ×2 (02:20→14:00)
--- NOTE | 2018-07-04 02:57 | Consultation ---
DATE OF CONSULTATION: 07/02/2018 CONSULTING PHYSICIAN: Vandana Wilkerson MD. REASON FOR CONSULTATION: Evaluation and management of patient with known history of breast cancer, now admitted due to shortness of breath and cough. HISTORY OF PRESENT ILLNESS: Ms. Tran is a very pleasant 63-year-old female with known history of metastatic breast cancer, presently receiving systemic therapy, now admitted due to progressive weakness, cough and shortness of breath. Her history goes back to 13 years ago when she was diagnosed with left-sided breast cancer at the age of 50. She underwent partial mastectomy followed by radiation treatment as well as adjuvant chemotherapy. Within few months, her disease recurred resulting she was treated with systemic chemotherapy for metastatic disease. She had been on chemotherapy intermittently since then. Most recently she has been receiving Herceptin and Perjeta and tolerating it well. Last dose was last week on Wednesday. She has been receiving Herceptin and Perjeta on alternate weeks. Presently, she is lying comfortably, not in acute distress, feeling much better. Due to shortness of breath, she underwent a VQ scan which remained low probability. CT of the chest was also done revealing ground-glass opacity in the right upper and lower lobes, compatible with multifocal pneumonia. There is a slight hyperdensity in the liver of uncertain etiology. Now, Hematology/Oncology has been consulted to assist with the management. PAST MEDICAL HISTORY: 1. Metastatic cancer, diagnosed at the age of 50. 2. Chronic pain syndrome. 3. Peripheral neuropathy. 4. Depression. 5. Chronic debility. 6. Poor historian. PAST SURGICAL HISTORY: 1. Left-sided mastectomy. 2. Port placement. 3. Breast biopsy. FAMILY HISTORY: Noncontributory. SOCIAL HISTORY: She denies history of smoking, alcohol or use of illicit drug use. ALLERGIES: MULTIPLE ALLERGIES PER ELECTRONIC MEDICAL RECORD. CURRENT MEDICATIONS: Reviewed and as per electronic medical record. REVIEW OF SYSTEMS: A 14-point review of systems is negative, except as mentioned in the history of present illness. PHYSICAL EXAMINATION: VITAL SIGNS: Reviewed and as per electronic medical record. HEENT: PERRLA. Extraocular movements intact. Head is atraumatic and normocephalic. NECK: Supple. CVS: S1, S2 audible. RESPIRATORY: Decreased bilateral air entry. ABDOMEN: Soft. Positive bowel sounds. EXTREMITIES: Moving all extremities. No cyanosis. NEUROLOGIC: The patient is alert and awake. LABORATORY DATA: White blood cell count of 16, hemoglobin 10.5, hematocrit 32.0, platelets 220. BUN 13 and creatinine 0.6. ASSESSMENT/PLAN: Ms. Tran is a very pleasant 63-year-old female with known history of metastatic breast cancer for which she was diagnosed at the age of 50 and since then has been on systemic chemotherapy and has received multiple agents and more recently she was started on Perjeta and Herceptin on alternate week. Last treatment was last week Wednesday. Overall, her disease has been stable without any frequent issues. Now, she is admitted due to shortness of breath, cough and not feeling well. CT scan of the chest was performed revealing extensive ill-defined ground-glass opacities in the right upper and lower lobe, suspicious of multifocal pneumonia. The patient was seen and evaluated by Infectious Disease physician and is started on antibiotics. Hematology/Oncology has been consulted to assist with the management. I have reviewed the record and discussed at length with the patient about her condition and importance of further workup. Overall, it appeared that patient current finding on the CT chest is atypical probably infectious etiology. However underlying metastatic disease cannot be ruled out completely. She does have slight in the liver which is not very much visible. At this point, recommendation would be to continue to treat as underlying infection causing her symptoms. From Oncology standpoint, continue to provide supportive care. I will discuss the case further with Family Service. Thank you for the consult. I will continue to be available. Please call with questions. MD GHADA Bowen/GUERDA /[id number]
[2018-07-04] MEDS: MEROPENEM 500MG/ NS 50ML 50 ML IV SCH ×3 (05:26→19:59)
[2018-07-04 06:22] LABS: BASOPHILS % 0.4 % (0.0-1.0); EOSINOPHILS # (AUTO) 0.5 (0.0-0.4); EOSINOPHILS % 6.9 % (0.0-6.0); HEMOGLOBIN 10.4 g/dL (12.0-16.0); LYMPHOCYTES # (AUTO) 2.9 (1.0-3.2); LYMPHOCYTES % 37.6 % (18.0-39.1); MEAN CORPUSCULAR HEMOGLOBIN 29.9 pg (28-32); MEAN CORPUSCULAR HGB CONC 32.5 g/dL (31-35); MONOCYTES # (AUTO) 0.6 (0.2-0.8); MONOCYTES % 7.2 % (4.4-11.3); NEUTROPHILS # (AUTO) 3.6 (2.1-6.9); NEUTROPHILS % 47.1 % (38.7-80.0); PLATELET COUNT 248 x10e3/uL (140-360); RED BLOOD COUNT 3.48 x10e6/uL (3.6-5.1); RED CELL DISTRIBUTION WIDTH 13.5 % (11.7-14.4)
[2018-07-04 06:46] LABS: ALANINE AMINOTRANSFERASE 23 IU/L (0-55); ALBUMIN 2.9 g/dL (3.5-5.0); ALBUMIN/GLOBULIN RATIO 0.8 (0.8-2.0); ALKALINE PHOSPHATASE 84 IU/L (40-150); ANION GAP 14.8 mmol/L (8-16); BLOOD UREA NITROGEN 7 mg/dL (7-26); BUN/CREATININE RATIO 10 (6-25); CALCIUM 9.6 mg/dL (8.4-10.2); CARBON DIOXIDE 25 mmol/L (22-29); CHLORIDE 103 mmol/L (98-107); CREATININE, SERUM 0.68 mg/dL (0.57-1.11); EST GLOMERULAR FILTRATION RATE > 60 ML/MIN (60-); GLUCOSE 134 mg/dL (74-118); POTASSIUM 3.8 mmol/L (3.5-5.1); SODIUM 139 mmol/L (136-145)
[2018-07-04] MEDS: GABAPENTIN 300 MG CAP PO SCH ×3 (08:00→19:59)
[2018-07-04] MEDS: IRON FUM PO SCH ×2 (08:00→15:11)
[2018-07-04] MEDS: ANASTROZOLE 1 MG TAB PO SCH (08:00)
[2018-07-04] MEDS: C NO 9 PO SCH ×2 (08:00→15:11)
[2018-07-04] MEDS: [UNRECOGNIZED DRUG - OTHER] PO SCH ×2 (08:00→15:11)
[2018-07-04] MEDS: VIT B PO SCH ×2 (08:00→15:11)
[2018-07-04] MEDS: BUPROPION HCL 150 MG TABCR PO SCH (08:00)
--- NOTE | 2018-07-04 09:55 | NUR ---
IMM letter delivered and explained to pt. She verbalized understanding. Signed copy placed in chart. Copy to pt. Anticipate DC tomorrow. Pt stated she was on service with [facility] and would like to resume service with them on discharge. Choice letter signed and placed in chart. Copy placed in pt's transition of care folder.
[2018-07-04] MEDS ORDERED: SODIUM CHLORIDE 0.9% 250ML 250 ML ONE (11:37)
[2018-07-04] MEDS: AZITHROMYCIN 500MG/NS 250 ML 250 ML IV SCH (12:50)
[2018-07-04] MEDS ORDERED: LOPERAMIDE HCL 2 MG CAP PO PRN (18:30)
--- NOTE | 2018-07-04 18:32 | NUR ---
Patient has had a loose stool. States " I have had six today, but that is normal for me." Dr.Hammer Shaw notified. See orders.
--- NOTE | 2018-07-04 19:10 | NUR ---
Bedside report given to oncoming nurse. Resting in bed. No s/s of acute distress noted.
[2018-07-04] MEDS: ALPRAZOLAM 1 MG TAB PO SCH (19:59)
[2018-07-04] MEDS: DULOXETINE HCL 30 MG DELAYED RELEASE PO SCH (19:59)
[2018-07-04] MEDS: QUETIAPINE FUMARATE 100 MG TAB PO SCH (19:59)
--- NOTE | 2018-07-04 20:15 | NUR ---
RIGHT IV INFILTRATED. D/C IV. START NEW IV TO RIGHT FOREARM 22G. PATIENT TOLERATED WELL
[2018-07-05 00:05] VITALS: BP 97/58
[2018-07-05] MEDS: HYDROCODONE/APAP 10MG-325MG TAB PO PRN ×3 (01:01→10:45)
[2018-07-05] MEDS: LINEZOLID 600 MG/D5W 300ML 300 ML IV SCH (01:43)
[2018-07-05 04:22] VITALS: BP 93/56
[2018-07-05] MEDS: MEROPENEM 500MG/ NS 50ML 50 ML IV SCH (05:12)
[2018-07-05 08:00] VITALS: BP 119/74
[2018-07-05] MEDS: IRON FUM PO SCH (08:01)
[2018-07-05] MEDS: C NO 9 PO SCH (08:01)
[2018-07-05] MEDS: VIT B PO SCH (08:01)
[2018-07-05] MEDS: [UNRECOGNIZED DRUG - OTHER] PO SCH (08:01)
[2018-07-05 08:13] VITALS: BP 119/74
[2018-07-05] MEDS: ANASTROZOLE 1 MG TAB PO SCH (08:14)
[2018-07-05] MEDS: BUPROPION HCL 150 MG TABCR PO SCH (08:14)
[2018-07-05] MEDS: GABAPENTIN 300 MG CAP PO SCH (08:14)
--- NOTE | 2018-07-05 09:10 | NUR ---
CM called and spoke with Ginna at [place] [employer] [facility] and verified that pt is currently on service. Informed her that pt's anticipated discharge is today. Resumption order and clinicals were faxed to the office. [employer] [facility]
[2018-07-05 11:44] VITALS: BP 102/62
[2018-07-05] MEDS ORDERED: cleocin PO (12:04)
--- NOTE | 2018-07-05 12:49 | NUR ---
Right FA IV discontinued. No signs of infiltration noted. 2x2 gauze and tape placed. Taken via wheelchair by PCT to personal car. AAOX4 to time, person, place, situation. Respirations even and unlabored. Discharge instructions, rx, and all personal belongings taken with patient.
--- NOTE | 2018-07-05 23:58 | Progress Note ---
DATE: CHIEF COMPLAINT: The patient is having shortness of breath and known history of breast cancer. Admitted to inpatient floor. Laboratory data reviewed and as per electronic medical record. ASSESSMENT AND PLAN: Ms. Tran is a very pleasant 63-year-old female with known history of metastatic breast cancer, admitted due to shortness of breath. CT scan revealed an extensive ill-defined ground glass opacities, which appear to be more or multifocal pneumonia rather than metastatic breast cancer. However, I have recommended to follow up outpatient to have PET-CT scan of the body to rule out any metastatic focus. She has been on systemic therapy, will continue as an outpatient. MD GHADA Bowen/SHANKARL /[id number]
--- NOTE | 2018-07-06 01:59 | Discharge Summary ---
DISCHARGE DIAGNOSES: 1. Pneumonia with sepsis, present on admission. 2. Stage IV breast cancer. 3. Hypokalemia. 4. Remote history of pulmonary embolism. CONSULTING PHYSICIAN: 1. Dr. Karol Caputo of Infectious Disease. 2. Dr. Wilkerson of Hematology Oncology. DISCHARGE MEDICATIONS: 1. Xanax 0.5 mg p.o. q.8 p.r.n. 2. Arimidex 1 mg p.o. daily. 3. Bupropion 300 mg p.o. daily. 4. Albuterol through the nebulizer p.r.n. 5. p.o. daily p.r.n. 6. Cymbalta 60 mg p.o. at bedtime. 7. Gabapentin 600 mg p.o. t.i.d. 8. Hydrocodone 10/325 one p.o. q.4 p.r.n. 9. Oxycodone 10/325 mg one p.o. q.6 p.r.n. 10. Requip 0.25 mg p.o. at bedtime. 11. Seroquel XL 150 mg p.o. at bedtime. 12. Ambien 10 mg p.o. at bedtime. 13. p.o. t.i.d. RADIOGRAPHIC DATA: CT scan of the chest shows extensive ill-defined ground-glass opacities in the right upper lobe and lower lobes. It is compatible with multifocal pneumonia. There is also stable hypodensity in the right lower lobe of the liver. There is a port visible in the right chest. There are postoperative changes from a prior breast surgery on the left side. Ventilation perfusion scan shows low probability. HISTORY OF PRESENT ILLNESS: The patient is a 63-year-old woman with a history of stage IV breast cancer. She is receiving Herceptin as an outpatient. She came to the office complaining of fever and chills for two days. She denied chest pain. HOSPITAL COURSE: The patient was admitted. She received IV fluids. She was started on antibiotics and had cultures performed. She was seen in consultation by Infectious Disease and her antibiotics were adjusted. The patient improved with treatment. She had less dyspnea and less cough. Her fever subsided. She was eager to go home at the time of discharge. She was also seen in consultation by Oncology. DISPOSITION: The patient will be discharged home. She will follow up with Oncology. She will follow up with Dr. Castanon in two weeks and have a repeat chest x-ray. MD YOLETTE Nagel/GUERDA /[id number]
== END 2018-07-05 12:55 | disposition home health service (06) | DRG 871 ==
LOC: IMCU 12:26 → MED/SURG2 07-02 11:17 → OBSVTOIN 07-02 13:56
PROVIDERS: ADMIT Internal Medicine Critical Care Medicine; ATTEND Internal Medicine Critical Care Medicine
DX: A41.9 Sepsis, unspecified organism (principal); J18.9 Pneumonia, unspecified organism; C79.9 Secondary malignant neoplasm of unspecified site; Z85.3 Personal history of malignant neoplasm of breast; Z86.718 Personal history of other venous thrombosis and embolism; Z88.0 Allergy status to penicillin; Z88.2 Allergy status to sulfonamides; Z88.8 Allergy status to other drugs, medicaments and biological substances; Z91.040 Latex allergy status; C50.919 Malignant neoplasm of unspecified site of unspecified female breast; C50.912 Malignant neoplasm of unspecified site of left female breast; G89.4 Chronic pain syndrome; G62.9 Polyneuropathy, unspecified; R53.81 Other malaise; E87.6 Hypokalemia; F32.9 Major depressive disorder, single episode, unspecified; Z79.899 Other long term (current) drug therapy; Z86.711 Personal history of pulmonary embolism
CPT/HCPCS: 36415; 71045; 71046; 71250; 78582; 80053; 81001; 82948; 83605; 85025; 85610; 85730; 87040; 87081; 87086; 87400; 93306; 94640; A9540; A9558; G0378; J0456; J2020; J7030; J7050

== ENCOUNTER 2018-07-12 18:53 | Inpatient (IN) | payer MEDICARE ==
[~2018-07-12] VITALS: Ht 170.2 cm; Wt 73.9 kg
[~2018-07-12 18:53] MED LIST changes: +AMBIEN10 MG PO; +ANASTROZOLE1 MG PEG; +CALCIUM ACETAT667 MG PO; +MAGNESIUM OXID400 MG PO; +MELATONIN 1 MG1 EACH PEG; +MULTI-VITAMIN1 EACH PO; +PERCOCET 10-321 EACH PEG; +REQUIP0.25 MG PO; +VITAMIN B-121000 MC1 PO; +VOLTAREN100 GM PO; +cleocin PO
--- OUTSIDE RECORDS SUMMARY | 2018-07-12 18:56 | XMS REPORT | Clinical Summary ---
Author Author [facility] Organization [facility] Address Unknown Phone Unavailable Care Team Providers Care Machine Set Up Operator Name Role Phone David Osei MD PCP [...] Ursula Orourke 10/07/2017 Patient Quality Outreach David Osei MD Malignant neoplasm of overlapping [...] pain laterality 08/15/2017 Emergency Emergency Medicine after 07/11/2017 Family History Medical History Relation Name Comments [...] Date Type Specialty Darya Garcia MD [address] [address] [phone] 12/12/2018 Office Visit Neurology Health Maintenance Due Date Last Done Comments DIABETIC RETINAL EYE EXAM 1955 DIABETIC FOOT EXAM 1965 CERVICAL CANCER SCREENING 1976 BREAST CANCER SCREENING 2005 COLON CANCER SCREENING 2005 SHINGLES VACCINES (#1) 2005 INFLUENZA VACCINE 10/13/2018 Implants Device Identifier Shelf Expiration Date Model / Serial / Lot Implanted Type Area Manufactur er [id number] / / Dilator Baln Fxdwr [id number] Surgical N/A: N/A BSC 18-19-20mm Cre - [id number] Implants; ENDOSCOPY Implanted: Qty: 1 on 10/20/2016 by [employer]; Luisito Romo MD Extenders; Surgical Wires Procedures Comments Procedure Name Priority Date/Time Associated Diagnosis ECHOCARDIOGRAM 2D Routine 01/24/2018 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 neoplasm of 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 sites of left COLOR DOPPLER (61667) breast in female, estrogen receptor positive (HCC) [...] AM CDT overlapping sites of COLOR DOPPLER (49187) right breast in female, estrogen receptor negative Widespread metastatic malignant neoplastic disease Encounter for chemotherapy management 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 Results * Echocardiogram complete w contrast and 3D if needed (01/24/2018 10:20 AM SPLITTING MACHINE TENDER) Velocity Ratio (V1/V2) 0.76 m/s [facility] [...] LV EF,BP 67.10 % [facility] Jossue Savannah,d A2C 7.63 cm [facility] Jossue [place],d A4C 7.66 cm [facility] Jossue [place],s A2C 5.49 cm [facility] Jossue [place],s A4C 5.92 cm [facility] LV SV,A2C [...] Organization Address City/State/Zipcode Phone Number [facility] [address] [place] [address] * NM Bone Scan Whole Body (01/03/2018 3:00 PM CDT) Narrative Performed At PROCEDURE:NM BONE SCAN WHOLE BODY [facility] CLINICAL HISTORY: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 [id number] Performing Organization Address City/State/Zipcode Phone Number [facility] [address] [place] [address] * CT Chest Wo Contrast Abdomen Wo Contrast Pelvis Wo Contrast (01/03/2018 10:49 AM CDT) Narrative Performed At EXAMINATION:CT CHEST WO CONTRAST ABDOMEN WO CONTRAST PELVIS WO CONTRAST [facility] CLINICAL HISTORY: 62 years [id number] Secondary and unspecified malignant neoplasm of intrathoracic [...] Windows: Demonstrate no lytic or blastic lesions.. [id number] Procedure Note Hm Interface, Radiology Results Incoming [...] Windows: Demonstrate no lytic or blastic lesions.. [id number] Performing Organization Address City/State/Zipcode Phone Number [facility] [address] [place] [address] * CT Soft Tissue Neck Wo Contrast (01/03/2018 10:49 AM CDT) Narrative Performed At EXAMINATION:CT SOFT TISSUE NECK WO CONTRAST [facility] CLINICAL HISTORY:C77.1 Secondary and unspecified malignant neoplasm [...] pathologic cervical lymph nodes by imaging criteria. [id number] Procedure Note Interface, Radiology Results Incoming - [...] pathologic cervical lymph nodes by imaging criteria. [id number] Performing Organization Address City/State/Zipcode Phone Number [facility] [address] [place] [address] * MRI Brain Wo Contrast (01/03/2018 10:35 [...] are not visible on the prior study. [id number] Procedure Note Interface, Radiology Results Incoming - [...] are not visible on the prior study. [id number] Performing Organization Address City/State/Zipcode Phone Number [facility] [address] [place] [address] * Bone Density (01/03/2018 9:09 AM CDT) Narrative Performed At EXAMINATION:[facility] CLINICAL H[facility]:C77.1 Secondary and unspecified malignant neoplasm [...] as abnormally low (osteoporosis, increased fracture risk) [id number] Procedure Note Interface, Radiology Results Incoming - [...] as abnormally low (osteoporosis, increased fracture risk) [id number] Performing Organization Address City/State/Zipcode Phone Number [facility] [address] [place] [address] * Echocardiogram complete w contrast and 3D [...] LV EF,BP 59.25 % [facility] Jossue Savannah,d A2C 6.66 cm [facility] Jossue [place],d A4C 7.50 cm [facility] Jossue [place],s A2C 5.75 cm [facility] Jossue [place],s A4C 5.66 cm [facility] LV,s 2.68 [...] [facility] LV SI MOD BP BSA Stanley 33.22 ml/m2 [facility] LV Vol Index [...] Performing Organization Address City/State/Zipcode Phone Number [facility] [address] [place] [address] after 07/11/2017 Insurance Payer Benefit Subscriber ID Type Phone Address Plan / Group MEDICARE MEDICARE xxxxxxxxxxx Medicare [place], [place] PART [place] B MEDICAID MEDICAID xxxxxxxxx Medicaid Advance Directives Patient has advance care planning documents, and code status on file. For more i nformation, please contact: Jorge Alcala [address] [place] [address] Date Inactivated Comments Code Status Date Activated 10/21/2016 10:03 PM Full Code 10/17/2016 4:57 PM Code Status decision reached by: Patient
[2018-07-12 19:26] LABS: BASOPHILS % 0.4 % (0.0-1.0); EOSINOPHILS # (AUTO) 0.5 (0.0-0.4); EOSINOPHILS % 4.3 % (0.0-6.0); HEMATOCRIT 33.1 % (34.2-44.1); LYMPHOCYTES # (AUTO) 2.1 (1.0-3.2); LYMPHOCYTES % 19.7 % (18.0-39.1); MEAN CORPUSCULAR HGB CONC 33.2 g/dL (31-35); MEAN CORPUSCULAR VOLUME 90.2 fL (81-99); MONOCYTES # (AUTO) 0.7 (0.2-0.8); MONOCYTES % 6.3 % (4.4-11.3); NEUTROPHILS # (AUTO) 7.2 (2.1-6.9); NEUTROPHILS % 68.7 % (38.7-80.0); PLATELET COUNT 255 x10e3/uL (140-360); RED BLOOD COUNT 3.67 x10e6/uL (3.6-5.1); RED CELL DISTRIBUTION WIDTH 13.3 % (11.7-14.4)
[2018-07-12 19:36] LABS: BILIRUBIN,URINE NEGATIVE (NEGATIVE); CLARITY,URINE SL CLOUDY (CLEAR); COLOR,URINE YELLOW (YELLOW); KETONES,URINE NEGATIVE (NEGATIVE); LEUKOCYTE ESTERASE ,URINE NEGATIVE (NEGATIVE); NITRITE,URINE NEGATIVE (NEGATIVE); PROTEIN,URINE DIPSTICK NEGATIVE (NEGATIVE); URINE UROBILINOGEN 0.2 mg/dL (0.2 - 1)
[2018-07-12 19:37] LABS: BACTERIA,URINE MODERATE /HPF; WBC,URINE (MAN) 0-5 /HPF (0-5)
[2018-07-12 19:39] LABS: ALANINE AMINOTRANSFERASE 45 IU/L (0-55); ALBUMIN 3.4 g/dL (3.5-5.0); ALBUMIN/GLOBULIN RATIO 1.1 (0.8-2.0); ALKALINE PHOSPHATASE 118 IU/L (40-150); ANION GAP 10.9 mmol/L (8-16); BLOOD UREA NITROGEN 13 mg/dL (7-26); BUN/CREATININE RATIO 18 (6-25); CALCIUM 9.2 mg/dL (8.4-10.2); CARBON DIOXIDE 31 mmol/L (22-29); CHLORIDE 95 mmol/L (98-107); CREATININE, SERUM 0.74 mg/dL (0.57-1.11); EST GLOMERULAR FILTRATION RATE > 60 ML/MIN (60-); GLUCOSE 126 mg/dL (74-118); POTASSIUM 3.9 mmol/L (3.5-5.1); SODIUM 133 mmol/L (136-145)
[2018-07-12] MEDS ORDERED: VANCOMYCIN 1GM/NS 250 ML 250 ML IV SCH (19:45)
[2018-07-12] MEDS ORDERED: CEFEPIME 1GM/NS 0.9% 50 ML 50 ML IV SCH (19:45)
[2018-07-12] MEDS ORDERED: ACETAMINOPHEN 1000 MG/100 ML IV NR (20:00)
[2018-07-12] MEDS ORDERED: ACETAMINOPHEN 1000 MG/100 ML 100 ML IV ONE (20:00)
--- NOTE | 2018-07-12 20:03 | Diagnostic Imaging Report ---
EXAMINATION: CHEST SINGLE (PORTABLE) INDICATION: Fever and cough. COMPARISON: Chest radiograph 07/03/2018. FINDINGS: TUBES and LINES: Right-sided chest port with tip terminating in the expected location of the mid SVC, unchanged. LUNGS: Lungs are moderately inflated. Patchy density in the left lung base suggestive of subsegmental atelectasis. Decrease of previously present patchy density in the right lung base. PLEURA: No pleural effusion or pneumothorax. HEART AND MEDIASTINUM: Cardiac size is mildly enlarged. BONES AND SOFT TISSUES: No acute osseous abnormality. UPPER ABDOMEN: No free air under the diaphragm. Surgical clips are present in the upper abdomen. IMPRESSION: Patchy density in the left lung base suggestive of subsegmental atelectasis. Decrease of previously present patchy density in the right lung base. Signed by: Dr. Reji Stanley M.D. on 07/12/2018 7:59 PM
[2018-07-12] MEDS ORDERED: LINEZOLID 600 MG/D5W 300ML 300 ML IV SCH (20:15)
[2018-07-12] MEDS ORDERED: SODIUM CHLORIDE 0.9% 1000ML 1,000 ML IV SCH ×2 (20:15)
[2018-07-12] MEDS ORDERED: SODIUM CHLORIDE 0.9% 1000ML 1,000 ML IV ONE ×2 (20:20→21:30)
--- OUTSIDE RECORDS SUMMARY | 2018-07-12 20:28 | XMS REPORT | Clinical Summary ---
Author Author [facility] Organization [facility] Address Unknown Phone Unavailable Care Team Providers Care Supervisor Cytogenetic Laboratory Name Role Phone David Osei MD PCP [...] Date Type Specialty Darya Garcia MD [address] [address] [phone] 12/12/2018 Office Visit Neurology Health Maintenance Due Date Last Done Comments DIABETIC RETINAL EYE EXAM 1955 DIABETIC FOOT EXAM 1965 CERVICAL CANCER SCREENING 1976 BREAST CANCER SCREENING 2005 COLON CANCER SCREENING 2005 SHINGLES VACCINES (#1) 2005 INFLUENZA VACCINE 10/13/2018 Implants Device Identifier Shelf Expiration Date Model / Serial / Lot Implanted Type Area Manufactur er [id number] / / Dilator Baln Fxdwr [id number] Surgical N/A: N/A BSC 18-19-20mm Cre - [id number] Implants; ENDOSCOPY Implanted: Qty: 1 on 10/20/2016 by [employer]; Luisito Romo MD Ext[employer]; Surgical Wires Procedures Comments Procedure Name Priority Date/Time Associated Diagnosis ECHOCARDIOGRAM 2D Routine 01/24/2018 Malignant neoplasm of 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 overlapping sites of left COLOR DOPPLER (41335) breast in female, estrogen receptor positive (HCC) [...] AM CDT overlapping sites of COLOR DOPPLER (95173) right breast in female, estrogen receptor negative Widespread metastatic malignant neoplastic disease Encounter for chemotherapy management 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 Results * Echocardiogram complete w contrast and 3D if needed (01/24/2018 10:20 AM CRUSHER SUPERVISOR) Velocity Ratio (V1/V2) 0.76 m/s [facility] [...] LV EF,BP 67.10 % [facility] Jossue [place]ober[place],d A2C 7.63 cm [facility] Jossue [place],d A4C 7.66 cm [facility] Jossue [place],s A2C 5.49 cm [facility] Jossue [place]ober[place],s A4C 5.92 cm [facility] LV SV,A2C [...] Organization Address City/State/Zipcode Phone Number [facility] [address] [place] [address] * NM Bone Scan Whole Body (01/03/2018 3:00 PM CDT) Narrative Performed At PROCEDURE:NM BONE SCAN WHOLE BODY [facility] CLINICAL HISTORY: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 [id number] Performing Organization Address City/State/Zipcode Phone Number [facility] [address] [place] [address] * CT Chest Wo Contrast Abdomen Wo Contrast Pelvis Wo Contrast (01/03/2018 10:49 AM CDT) Narrative Performed At EXAMINATION:CT CHEST WO CONTRAST ABDOMEN WO CONTRAST PELVIS WO CONTRAST [facility] CLINICAL HISTORY: 62 years KqgtmqZ18.1 Secondary and unspecified malignant neoplasm of intrathoracic [...] Windows: Demonstrate no lytic or blastic lesions.. [id number] Procedure Note Hm Interface, Radiology Results Incoming [...] Windows: Demonstrate no lytic or blastic lesions.. [id number] Performing Organization Address City/State/Zipcode Phone Number [facility] [address] [place] [address] * CT Soft Tissue Neck Wo Contrast (01/03/2018 10:49 AM CDT) Narrative Performed At EXAMINATION:CT SOFT TISSUE NECK WO CONTRAST [facility] CLINICAL HISTORY:C77.1 Secondary and unspecified [...] pathologic cervical lymph nodes by imaging criteria. [id number] Procedure Note Interface, Radiology Results Incoming - [...] pathologic cervical lymph nodes by imaging criteria. [id number] Performing Organization Address City/State/Zipcode Phone Number [facility] [address] [place] [address] * MRI Brain Wo Contrast (01/03/2018 10:35 [...] are not visible on the prior study. [id number] Procedure Note Interface, Radiology Results Incoming - [...] are not visible on the prior study. [id number] Performing Organization Address City/State/Zipcode Phone Number [facility] [address] [place] [address] * Bone Density (01/03/2018 9:09 AM CDT) Narrative Performed At EXAMINATION:[facility] DENSITY [facility] CLINICAL H[facility]ORY:C77.1 Secondary and unspecified malignant neoplasm [...] as abnormally low (osteoporosis, increased fracture risk) [id number] Procedure Note Interface, Radiology Results Incoming - [...] as abnormally low (osteoporosis, increased fracture risk) [id number] Performing Organization Address City/State/Zipcode Phone Number [facility] [address] [place] [address] * Echocardiogram complete w contrast and 3D [...] LV EF,BP 59.25 % [facility] Jossue Moberly,d A2C 6.66 cm [facility] Jossue [place]ober[place],d A4C 7.50 cm [facility] Jossue Moberly,s A2C 5.75 cm [facility] Jossue Moberly,s A4C 5.66 cm [facility] LV,s 2.68 [...] [facility] LV SI MOD BP BSA [place] 33.22 ml/m2 [facility] LV Vol Index [...] Performing Organization Address City/State/Zipcode Phone Number [facility] [address] [place] [address] after 07/11/2017 Insurance Payer Benefit Subscriber ID Type Phone Address Plan / Group MEDICARE MEDICARE xxxxxxxxxxx Medicare [place], [place] B MEDICAID MEDICAID xxxxxxxxx Medicaid Advance Directives Patient has advance care planning documents, and code status on file. For more i nformation, please contact: Jorge Alcala [address] [place] [address] Date Inactivated Comments Code Status Date Activated 10/21/2016 10:03 PM Full Code 10/17/2016 4:57 PM Code Status decision reached by: Patient
[2018-07-12] MEDS ORDERED: FOLIVANE-PLUS1 EACH PO (20:31)
[2018-07-12] MEDS ORDERED: DICLOFENAC SODI25 MG PO (20:31)
[2018-07-12] MEDS ORDERED: GABAPENTIN800 MG PO (20:31)
[2018-07-12] MEDS ORDERED: OXYCODONE-ACET1 EAC3 PO (20:31)
[2018-07-12] MEDS ORDERED: CARAFATE1 GM/10 ML PO (20:31)
[2018-07-12] MEDS ORDERED: CYMBALTA60 MG PO (20:31)
[2018-07-12] MEDS ORDERED: ALPRAZOLAM2 MG PO (20:31)
[2018-07-12] MEDS ORDERED: MELATONIN3 MG PO (20:31)
[2018-07-12] MEDS ORDERED: ONDANSETRON HCL8 MG PO (20:31)
[2018-07-12] MEDS ORDERED: ZOLPIDEM TARTRA10 MG PO (20:31)
[2018-07-12] MEDS ORDERED: ROPINIROLE HC0.25 MG PO (20:31)
[2018-07-12] MEDS ORDERED: HYDROXYZINE HCL25 MG PO (20:31)
--- NOTE | 2018-07-12 21:45 | Diagnostic Imaging Report ---
EXAM: CT Chest WITHOUT contrast INDICATION: ^?PNA ^[id number] ^[id number] COMPARISON: Same day chest x-ray. Chest CT dated 07/01/2018 TECHNIQUE: Chest was scanned utilizing a multidetector helical scanner from the lung apex through the level of the adrenal glands without administration of IV contrast. Absence of intravenous contrast decreases sensitivity for detection of lymphadenopathy and vascular pathology. Coronal and sagittal reformations were obtained. Routine protocol was performed. IV CONTRAST: None COMPLICATIONS: None RADIATION DOSE: Total DLP: 455.75 mGy*cm Estimated effective dose: (DLP x 0.014 x size factor) mSv CTDIvol has been reviewed. It is below the limits set by the Radiation Protocol Committee (RPC). FINDINGS: LINES/ TUBES: Right chest wall port in place with tip terminating in inferior SVC. LUNGS AND AIRWAYS: Subpleural left upper lobe 5 mm nodule (series 3, image 26). There is also a pleural-based 6 mm right upper lobe nodule (3/27). 4 mm right middle lobe nodule (3/58). Left lower lobe and to lesser extent right lower and middle lobes airspace opacities. Airways are normal. PLEURA: Trace right pleural effusion. HEART AND MEDIASTINUM: The thyroid gland is normal. Several subcentimeter mediastinal lymph nodes. Limited for evaluation of hilar regions without intravenous contrast. Calcified left hilar lymph nodes. No axillary lymphadenopathy. The heart is normal in size.. There is no pericardial effusion. Again seen gas and fluid filled patulous esophagus. UPPER ABDOMEN: Ill-defined hypodense 1.8 cm posterior right hepatic lobe lesion (series 2, image 97). Evidence of gastric surgery. BONES: The visualized bony thorax is within normal limits. SOFT TISSUES: Again seen postoperative changes of the left breast. IMPRESSION: 1. Multiple lung nodules, not significantly changed when compared to prior CT. 2. Persistent airspace opacities, increased in left lower lobe on current exam, concerning for multifocal pneumonia. 3. Redemonstration of ill-defined posterior right hepatic lobe hypodense lesion. 4. Trace right pleural effusion. Signed by: Dr. Devin Stack MD on 07/12/2018 9:42 PM
[2018-07-12] MEDS: MEROPENEM 1GM 100 ML IV SCH (22:27)
[2018-07-13] MEDS: MEROPENEM 1GM 100 ML IV SCH ×3 (05:58→22:36)
[2018-07-13 06:07] LABS: BASOPHILS % 0.3 % (0.0-1.0); EOSINOPHILS # (AUTO) 0.3 (0.0-0.4); EOSINOPHILS % 5.1 % (0.0-6.0); HEMATOCRIT 28.7 % (34.2-44.1); HEMOGLOBIN 9.5 g/dL (12.0-16.0); LYMPHOCYTES # (AUTO) 1.9 (1.0-3.2); LYMPHOCYTES % 28.8 % (18.0-39.1); MEAN CORPUSCULAR HEMOGLOBIN 29.9 pg (28-32); MEAN CORPUSCULAR HGB CONC 33.1 g/dL (31-35); MEAN CORPUSCULAR VOLUME 90.3 fL (81-99); MONOCYTES # (AUTO) 0.5 (0.2-0.8); MONOCYTES % 7.6 % (4.4-11.3); NEUTROPHILS # (AUTO) 3.7 (2.1-6.9); NEUTROPHILS % 57.9 % (38.7-80.0); PLATELET COUNT 248 x10e3/uL (140-360); RED BLOOD COUNT 3.18 x10e6/uL (3.6-5.1); RED CELL DISTRIBUTION WIDTH 13.2 % (11.7-14.4)
[2018-07-13 06:19] LABS: ALANINE AMINOTRANSFERASE 32 IU/L (0-55); ALBUMIN 2.9 g/dL (3.5-5.0); ALKALINE PHOSPHATASE 97 IU/L (40-150); ANION GAP 8.9 mmol/L (8-16); BLOOD UREA NITROGEN 6 mg/dL (7-26); BUN/CREATININE RATIO 10 (6-25); CARBON DIOXIDE 30 mmol/L (22-29); CHLORIDE 102 mmol/L (98-107); CREATININE, SERUM 0.63 mg/dL (0.57-1.11); EST GLOMERULAR FILTRATION RATE > 60 ML/MIN (60-); GLUCOSE 126 mg/dL (74-118); POTASSIUM 3.9 mmol/L (3.5-5.1); SODIUM 137 mmol/L (136-145)
--- NOTE | 2018-07-13 06:55 | NUR ---
REPORT TO FARAZ NARAYAN
[2018-07-13] MEDS ORDERED: OXYCODONE PO PRN (08:45)
[2018-07-13] MEDS ORDERED: ACETAMINOPHEN PO PRN (08:45)
[2018-07-13] MEDS ORDERED: ALPRAZOLAM 1 MG PO PRN (08:45)
[2018-07-13] MEDS ORDERED: HYDROXYZINE HCL 25 MG TAB PO PRN (08:45)
[2018-07-13] MEDS ORDERED: NON-FORMULARY MEDICATION (Ondansetron Hcl 8 MG) PO PRN (08:45)
[2018-07-13] MEDS ORDERED: IPRATROPIUM BROMIDE 0.02% 2.5 ML NEB NEB PRN (08:45)
[2018-07-13] MEDS ORDERED: ALBUTEROL SULF 0.083% NEB SOLN 3 ML NEB NEB PRN (08:45)
[2018-07-13] MEDS ORDERED: IBUPROFEN 400 MG TAB PO PRN (08:45)
[2018-07-13] MEDS ORDERED: NON-FORMULARY MEDICATION (Duloxetine Hcl (Cymbalta) 60 MG) PO SCH (09:00)
[2018-07-13] MEDS ORDERED: ALPRAZOLAM 1 MG TAB PO PRN (09:15)
[2018-07-13] MEDS: [UNRECOGNIZED DRUG - OTHER] PO SCH ×2 (09:47→17:28)
[2018-07-13] MEDS: IRON FUM PO SCH ×2 (09:47→17:28)
[2018-07-13] MEDS: C NO 9 PO SCH ×2 (09:47→17:28)
[2018-07-13] MEDS: VIT B PO SCH ×2 (09:47→17:28)
[2018-07-13] MEDS: DULOXETINE HCL 30 MG DELAYED RELEASE PO SCH (10:35)
[2018-07-13] MEDS: SUCRALFATE 1 GM/10 ML SUSP PO SCH ×3 (10:35→20:55)
--- NOTE | 2018-07-13 10:49 | History and Physical ---
CHIEF COMPLAINT: Fevers and confusion. HISTORY OF PRESENT ILLNESS: The patient has a history of stage IV breast cancer. She is receiving Herceptin as well as another chemotherapeutic agent once a month through [facility]. She stopped the Arimidex about three weeks ago. She required admission to [facility] on the 10 of July with fevers and pulmonary infiltrates. CT scan at that time showed some bibasilar infiltrates. V/Q scan showed low probability for pulmonary embolism. She saw Infectious Disease in consultation and received antibiotics. She improved and went home. She now returns complaining of cough and increased congestion. She had fevers at home and noted some increased confusion. She came to the emergency department yesterday and received IV fluids and was pancultured. PAST MEDICAL HISTORY: 1. Stage IV breast cancer. 2. Chronic pain secondary to neuropathy and back pain. 3. Depression. SOCIAL HISTORY: The patient is not an active smoker or drinker. ALLERGIES: THE PATIENT IS ALLERGIC TO MULTIPLE ANTIBIOTICS INCLUDING CIPROFLOXACIN, VANCOMYCIN, PENICILLIN, AND MACROBID. REVIEW OF SYSTEMS: The patient reports some fever. She had some confusion. She denies headache or neck pain. She does not have sore throat. She does not complain of swollen glands. She denies chest pain. She does have dyspnea and cough. She has no abdominal pain. She has no nausea or vomiting. She has no leg edema. PHYSICAL EXAMINATION: VITAL SIGNS: The patient is afebrile. The blood pressure is 140/73 and the pulse is 68. Respiratory rate is 14, T-max last night was 100.1. HEENT: Shows no facial swelling or erythema. Oropharynx is normal. LYMPHATIC: Shows no submandibular, cervical, or supraclavicular adenopathy. CARDIAC: Reveals a regular rate and rhythm with normal S1, S2. There are no murmurs or rubs. LUNGS: Auscultation of lungs reveals crackles at the bases. There is no wheezing. ABDOMEN: Soft, nontender. There is no rebound or guarding. EXTREMITIES: Shows no leg edema or calf tenderness. There is no cyanosis or clubbing. SKIN: Shows no rashes. NEUROLOGICAL: Shows no focal abnormalities. LABORATORY DATA: White blood cell count is 6.4 and hemoglobin is 9.5. The platelet count is 248. The BUN to creatinine ratio is 6:0.63 and the other electrolytes are within normal limits. Albumin is 2.9. RADIOGRAPHIC DATA: CT scan of chest shows persistent airspace opacities that are increased in the left lower lobe, but improved on the right side. LABORATORY DATA: The white blood cell count is 6.4 and hemoglobin is 9.5. The platelet count is 248. The other electrolytes are within normal limits. The BUN and creatinine are normal. PT and INR are normal. IMPRESSION: 1. Pneumonia with sepsis, present on admission. 2. Stage IV breast cancer with her HER positive receptors. 3. Remote history of pulmonary embolism. 4. Depression. 5. Multiple drug allergies. PLAN: 1. The patient will be restarted on antibiotics and seen in consultation by Infectious Disease. 2. Complete set of cultures. 3. Speech therapy evaluation for possible aspiration. 4. Physical therapy. [facility] Nagel/SHANKARL /[id number]
--- NOTE | 2018-07-13 11:15 | NUR ---
CM SPOKE TO DR. VALERA REGARDING PATIENT PLAN OF CARE. PATIENT RECENTLY DISCHARGED FOR THE SAME REASON SHE IS BACK THIS VISIT. MD INFORMED THAT LTAC WOULD BE APPROPRIATE LEVEL OF CARE TO ENSURE PATIENT RECEIVES APPROPRIATE TREATMENTS AND OBSERVATION FOR A LONGER PERIOD OF TIME. DR. VALERA STATES HE DOES NOT THINK SHE WILL AGREE BUT WILL SPEAK WITH HER REGARDING PLACEMENT PRIOR TO INITIATING ORDER. CM TO FOLLOW UP.
[2018-07-13 11:42] VITALS: BP 131/68
[2018-07-13 12:00] VITALS: BP 131/68
[2018-07-13 12:25] VITALS: BP 120/68
[2018-07-13] MEDS: ONDANSETRON HCL 4 MG ORAL DISINTEGRATING TAB PO PRN (12:28)
[2018-07-13] MEDS: OXYCODONE/ACETAMINOPHEN 5-325 1 EACH TABLET PO PRN ×2 (12:28→20:28)
[2018-07-13] MEDS ORDERED: MAGICMOUTH PO (12:41)
[2018-07-13] MEDS ORDERED: NON-FORMULARY MEDICATION (Gabapentin 400 MG) PO SCH (14:00)
[2018-07-13] MEDS ORDERED: SODIUM CHLORIDE 0.9% 250ML 250 ML ONE (15:06)
[2018-07-13] MEDS: GABAPENTIN 400 MG CAP PO SCH ×2 (15:11→20:55)
[2018-07-13 15:35] VITALS: BP 143/70
[2018-07-13] MEDS ORDERED: VANCOMYCIN 1GM/NS 250 ML 250 ML IV SCH (19:00)
--- NOTE | 2018-07-13 19:00 | NUR ---
pharmacy called stating MD has started patient on vancomycin even though chart shows an allergic reaction to this medication. MD notified of possible allergic reaction. MD states patient has taken medication before in the past.
--- NOTE | 2018-07-13 19:00 | NUR ---
received report from day nurse. patient is resting in bed. bed is in lowest position and call cedeño is within reach. will continue to monitor patient.
[2018-07-13 20:00] VITALS: BP 151/72
[2018-07-13] MEDS: METHYLPREDNISOLONE SOD SUCC 40 MG/ML VIAL 1ML IV SCH (20:55)
[2018-07-13] MEDS: AZITHROMYCIN 500MG/NS 250 ML 250 ML IV SCH (20:55)
[2018-07-13] MEDS ORDERED: METHYLPREDNISOLONE SOD SUCC 125 MG/2ML VIAL IV SCH (21:00)
[2018-07-13] MEDS: ROPINIROLE HCL 0.25 MG TAB PO SCH (21:11)
[2018-07-13 21:29] VITALS: BP 151/72
--- NOTE | 2018-07-13 21:45 | NUR ---
patient states current pain medication is not effective at relieving pain. MD notified. Receivied new order to D/C one of the current pain medications and start a new medication. will continue to monitor patient for pain.
[2018-07-13] MEDS: HYDROCODONE/APAP 10MG-325MG TAB PO PRN (23:27)
--- NOTE | 2018-07-13 23:37 | NUR ---
patient is complaining of itching. Vancomycin antibiotic has been stopped. Patient has been given prn anti-itch tablet. will continue to monitor patient for allergic reactions.
--- NOTE | 2018-07-13 23:38 | NUR ---
paged regarding patient's reaction to vancomycin. awaiting call back from MD. Will continue to monitor patient.
[2018-07-14] VITALS (7 sets, daily range): BP systolic 107–142; BP diastolic 62–83
--- NOTE | 2018-07-14 01:47 | Consultation ---
DATE OF CONSULTATION: REASON FOR CONSULTATION: Fever and chills. HISTORY OF PRESENT ILLNESS: This patient is a very pleasant 63-year-old white female. She was diagnosed with breast cancer, stage IV. She is getting chemotherapy at [facility]. The patient comes in with fever and chills, not feeling well, hurting all over, started for 2 days. She is getting chemotherapy, the last time was a week ago. The patient who has been getting Herceptin as well another chemotherapy agent once a month through [facility]. She stopped the Arimidex about three weeks ago. The patient comes in with fever and chills, not feeling well, generalized aches and pain. The patient came to the emergency room where she had pulmonary infiltrate. CAT scan showed bibasilar infiltrate and V/Q scan showed low probability for pulmonary embolism. The patient was admitted. She is just not feeling well in general at present time. REVIEW OF SYSTEMS: HEENT: There is no headache, visual changes or hearing changes. GI: There is no nausea, no vomiting, no diarrhea. CARDIAC: There is no arrhythmia. NEURO: No seizure activity. SKIN: There is no rash. JOINT: There is no erythema or edema. Basically, her main complaint was just fever and chills and not feeling well and hurting all over. The patient was admitted. She is currently on Neurontin, meropenem, Zofran, and Nasalide. LABORATORY DATA: White count is 6.4, hemoglobin 9.5, hematocrit 28 and platelet 248. Her sodium is 137, potassium 3.9, creatinine 0.63, and bilirubin of 0.5. Blood cultures still pending. Her CT of the chest showed multiple lung nodules, apparently, no significant change when compared to prior CT, airspace opacities increased in left lower lobe. ALLERGIES: PENICILLIN, AZTREONAM, CIPROFLOXACIN, LEVOFLOXACIN, AND LISINOPRIL. SOCIAL HISTORY: There is no smoking, drug abuse, or alcohol abuse. FAMILY HISTORY: Hypertension. PHYSICAL EXAMINATION: GENERAL: She is currently alert, oriented, does not seem to be in acute distress. VITAL SIGNS: Stable. Currently afebrile. Her temperature is 100.1 on admission. HEENT: Normocephalic, not icteric. NECK: Supple. CHEST: Clear bilaterally. HEART: S1 and S2. No S3, S4 or murmur. ABDOMEN: Soft. Bowel sounds present. No tenderness. EXTREMITIES: No edema. IMPRESSION: Fever, chills, generalized aches and pain. The patient is getting chemotherapy. She is not neutropenic. Abnormal chest CT, but apparently she had this for a while. I am not so sure whether there is acute versus chronic infiltration. She is currently on meropenem. We will add azithromycin. Obtain urine for Legionella, serology for mycoplasma. We will need to get what kind of chemotherapy she is on right now because it could be side effects to her medication. Agree with blood cultures and urine cultures. Further recommendations to follow. MD ANGELY Arana/GUERDA /[id number]
[2018-07-14] MEDS: MELATONIN 3 MG TAB PO PRN ×2 (02:54→22:35)
[2018-07-14 04:54] LABS: BASOPHILS % 0.1 % (0.0-1.0); HEMATOCRIT 33.5 % (34.2-44.1); HEMOGLOBIN 11.1 g/dL (12.0-16.0); LYMPHOCYTES % 12.1 % (18.0-39.1); MEAN CORPUSCULAR HEMOGLOBIN 29.9 pg (28-32); MEAN CORPUSCULAR HGB CONC 33.1 g/dL (31-35); MEAN CORPUSCULAR VOLUME 90.3 fL (81-99); MONOCYTES # (AUTO) 0.1 (0.2-0.8); MONOCYTES % 0.9 % (4.4-11.3); NEUTROPHILS # (AUTO) 6.8 (2.1-6.9); NEUTROPHILS % 86.5 % (38.7-80.0); PLATELET COUNT 289 x10e3/uL (140-360); RED BLOOD COUNT 3.71 x10e6/uL (3.6-5.1); RED CELL DISTRIBUTION WIDTH 13.1 % (11.7-14.4)
[2018-07-14] MEDS: MEROPENEM 1GM 100 ML IV SCH ×3 (04:56→21:34)
[2018-07-14] MEDS: GABAPENTIN 400 MG CAP PO SCH ×3 (04:56→21:34)
[2018-07-14 05:11] LABS: ALANINE AMINOTRANSFERASE 30 IU/L (0-55); ALBUMIN 3.1 g/dL (3.5-5.0); ALBUMIN/GLOBULIN RATIO 0.9 (0.8-2.0); ALKALINE PHOSPHATASE 101 IU/L (40-150); ANION GAP 11.1 mmol/L (8-16); BLOOD UREA NITROGEN 6 mg/dL (7-26); BUN/CREATININE RATIO 10 (6-25); CALCIUM 9.4 mg/dL (8.4-10.2); CARBON DIOXIDE 31 mmol/L (22-29); CHLORIDE 98 mmol/L (98-107); CREATININE, SERUM 0.62 mg/dL (0.57-1.11); EST GLOMERULAR FILTRATION RATE > 60 ML/MIN (60-); GLUCOSE 160 mg/dL (74-118); POTASSIUM 4.1 mmol/L (3.5-5.1); SODIUM 136 mmol/L (136-145)
--- NOTE | 2018-07-14 05:45 | NUR ---
second page put out to MD regarding patient's reactions to vancomycin. awaiting call back from MD.
--- NOTE | 2018-07-14 05:53 | NUR ---
has returned phone call. Vancomycin has been discontinued. Patient is to be started on a different antibiotic.
[2018-07-14] MEDS ORDERED: LINEZOLID 600 MG/D5W 300ML 300 ML IV SCH (06:00)
[2018-07-14] MEDS: LINEZOLID 600 MG/D5W 300ML 300 ML IV SCH ×2 (06:41→17:48)
--- NOTE | 2018-07-14 06:44 | NUR ---
report given to day nurse. patient is resting in bed. bed is in lowest position and call cedeño is within reach.
[2018-07-14] MEDS: METHYLPREDNISOLONE SOD SUCC 40 MG/ML VIAL 1ML IV SCH ×2 (08:27→21:33)
[2018-07-14] MEDS: HYDROCODONE/APAP 10MG-325MG TAB PO PRN ×4 (08:27→22:29)
[2018-07-14] MEDS: DULOXETINE HCL 30 MG DELAYED RELEASE PO SCH (08:27)
[2018-07-14] MEDS: SUCRALFATE 1 GM/10 ML SUSP PO SCH ×4 (08:27→21:34)
[2018-07-14] MEDS: IRON FUM PO SCH ×2 (08:28→16:52)
[2018-07-14] MEDS: [UNRECOGNIZED DRUG - OTHER] PO SCH ×2 (08:28→16:52)
[2018-07-14] MEDS: VIT B PO SCH ×2 (08:28→16:52)
[2018-07-14] MEDS: C NO 9 PO SCH ×2 (08:28→16:52)
--- NOTE | 2018-07-14 09:19 | NUR ---
F/U PHONE CALL WITH DR Valeria VALERA REGARDING LTAC HE WANTS SWALLOW EVAL DONE THIS AM AND CALLED TO HIM HE WILL THEN CONSIDER LTAC EVAL DAY [address]NA ON [address] 3 IV ABX AND IV SOLU EXPLAINED TO DR Valeria VALERA THAT PT IS MOST APPROPRIATE FOR LTAC
[2018-07-14] MEDS: ONDANSETRON HCL 4 MG ORAL DISINTEGRATING TAB PO PRN ×2 (12:20→18:28)
--- NOTE | 2018-07-14 12:25 | NUR ---
CALLED DR. VALERA'S ANSWERING SERVICE REGARDING PAIN 10/22 GENERALIZED, LAST NARCO AT 0827 THIS MORNING, KUNIA ORDERED Q8.
--- NOTE | 2018-07-14 12:37 | NUR ---
CM SPOKE WITH DR Valeria VALERA RE DC PLAN HE STATES PT DOES NOT NEED AN LTAC BECAUSE SHE WILL ONLY NEED IV ABX APPROX 1 WEEK HE SPOKE WITH PT AND SHE IS AGREEABLE TO SNF ORDERS FOR SNF EVAL (3 DAY INPT ON LAST ADMIT)
--- NOTE | 2018-07-14 14:30 | NUR ---
PT SIGNED CHOICE FOR [facility] FILED IN CHART AND FAXED CLINICALS TO [phone]
--- NOTE | 2018-07-14 18:50 | NUR ---
PATIENT RECEIVING ZYVOX IV, PATIENT COMPLAINING OF FEELING HOT, PATIENT'S FACE IS RED, ORAL TEMPERATURE: 98.9, B/P 98.9, SPO2= 98%, P 74, STOPPED ZYVOX INFUSION, CALLED DR. ANGUIANO'S ANSWERING SERVICE, SPOKE TO JENI, SHE STATED THAT SHE WOULD NOTIFY DR. HAGER IMMEDIATELY.
--- NOTE | 2018-07-14 19:00 | NUR ---
received report from day nurse, patient is resting comfortably in bed. bed is in lowest position and call cedeño is within reach. will continue to monitor patient.
[2018-07-14] MEDS: AZITHROMYCIN 500MG/NS 250 ML 250 ML IV SCH (21:06)
[2018-07-14] MEDS: ROPINIROLE HCL 0.25 MG TAB PO SCH (21:34)
--- NOTE | 2018-07-14 21:43 | NUR ---
paged regarding patients reaction to newly prescribed antibiotic. awaiting callback from .
[2018-07-15] VITALS (8 sets, daily range): BP systolic 126–168; BP diastolic 78–84
[2018-07-15] MEDS: HYDROCODONE/APAP 10MG-325MG TAB PO PRN ×5 (02:38→21:05)
[2018-07-15] MEDS: LINEZOLID 600 MG/D5W 300ML 300 ML IV SCH (06:00)
[2018-07-15] MEDS ORDERED: SODIUM CHLORIDE 0.9% 250ML 250 ML ONE (06:35)
[2018-07-15] MEDS: MEROPENEM 1GM 100 ML IV SCH ×2 (06:44→14:12)
[2018-07-15] MEDS: GABAPENTIN 400 MG CAP PO SCH ×3 (06:44→21:27)
[2018-07-15] MEDS: SUCRALFATE 1 GM/10 ML SUSP PO SCH ×4 (06:44→21:27)
--- NOTE | 2018-07-15 06:45 | NUR ---
Second attempt in contacting Dr. Caputo in regards to allergic reaction to Zyvox, waiting for call back
--- NOTE | 2018-07-15 07:00 | NUR ---
received pt lying in bed with eyes pen and TV on. denies pain, sob at this time. call light within reach and instructed to call for assistance.
[2018-07-15] MEDS: DULOXETINE HCL 30 MG DELAYED RELEASE PO SCH (08:08)
[2018-07-15] MEDS: METHYLPREDNISOLONE SOD SUCC 40 MG/ML VIAL 1ML IV SCH ×2 (08:08→21:27)
[2018-07-15] MEDS: IRON FUM PO SCH ×2 (08:15→16:17)
[2018-07-15] MEDS: C NO 9 PO SCH ×2 (08:15→16:17)
[2018-07-15] MEDS: [UNRECOGNIZED DRUG - OTHER] PO SCH ×2 (08:15→16:17)
[2018-07-15] MEDS: VIT B PO SCH ×2 (08:15→16:17)
--- NOTE | 2018-07-15 08:50 | Diagnostic Imaging Report ---
PROCEDURE: X-RAY MODIFIED BARIUM SWALLOW COMPARISON: None. INDICATION: Difficulty swallowing. Radiation Details: Fluoroscopy time: 2.4 minutes Cumulative dose: 10.5 mGy DISCUSSION: Fluoroscopic examination was performed in conjunction with speech pathology during swallowing a variety of thin and thick liquid consistencies. Provided images no laryngeal penetration or aspiration. There is trace vallecular and pharyngeal wall residue. CONCLUSION: Modified barium swallow demonstrating no laryngeal penetration or aspiration. Please refer to the speech pathology report for further details. Signed by: Dr. Fausto Haro MD on 07/15/2018 8:47 AM
--- NOTE | 2018-07-15 11:00 | NUR ---
Anurag ENGEL for ID, in facility, notified of patients reaction to Zyvox.
--- NOTE | 2018-07-15 15:33 | Progress Note ---
DATE: Pulmonary Progress Note SUBJECTIVE: The patient has some erythema on her face. She otherwise feels better. She has less cough and congestion. She still has some fatigue. OBJECTIVE: VITAL SIGNS: The blood pressure is 159/78 and pulse is 69. Saturation is 98%. HEENT: Shows no facial swelling or erythema. The nasal mucosa is normal. The oropharynx is normal. LYMPHATIC: Shows no submandibular, cervical, or supraclavicular adenopathy. CARDIAC: Reveals a regular rate and rhythm with normal S1, S2. There are no murmurs rubs. LUNGS: Auscultation of lungs reveals clear breath sounds bilaterally. There is no wheezing. ABDOMEN: Soft, nontender. There is no rebound or guarding. EXTREMITIES: Show no leg edema or calf tenderness. IMPRESSION: 1. Stage IV breast cancer with HER positive receptors. 2. Drug eruption, possibly secondary to antibiotics. 3. Infiltrates on chest CT and possible pneumonia. PLAN: 1. Stop meropenem and continue Zithromax. 2. Continue to evaluate for any drug eruptions. 3. Physical therapy. 4. SNF evaluation. Parag Castanon MD [facility]L /[id number]
--- NOTE | 2018-07-15 15:45 | NUR ---
Nutrition Screen Note RD Recommendation for Physician: -Continue cardiac diet as ordered -Pt requested ONS; RD rec Ensure Compact BID to increase PO intake Plan of Care: RD following, monitoring for tolerance and adequacy Nutrition reason for involvement: Nutrition Risk Trigger MST Primary Diagnose(s): 1. Stage IV breast cancer with HER positive receptors. 2. Drug eruption, possibly secondary to antibiotics. 3. Infiltrates on chest CT and possible pneumonia. PMH: 1. Stage IV breast cancer. 2. Chronic pain secondary to neuropathy and back pain. 3. Depression. Ht: 67in Wt: 163lb BMI: 25.5kg/m2 IBW: 135lb RD Assessment: (07/15) Chart reviewed. Labs and meds reviewed. 63yo F, who was admitted for cough and increased congestion. Visited pt in the room. Pt reported so so appetite for weeks. Unknown weight loss hx. Pt also complained of some nausea. No vomiting episode noted. Pt complained of swallowing difficulty but tolerated current diet without any s/s of aspiration. MBS showed no laryngeal penetration or aspiration. 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 Pt drinks 2 bottles of protein yogurt drinks daily and would like to try Ensure. Will continue to monitor and follow. Current Diet: cardiac diet Malnutrition Evaluation (07/15/2018) The patient does not meet criteria for a specified degree of malnutrition at this time. Will re-evaluate at follow-up as appropriate. Diet Education Needs Assessment: Diet education not indicated. Nutrition Care Level: low Signed: Rama George, MS, RD, LD
--- NOTE | 2018-07-15 18:57 | NUR ---
bedside rounds done with oncoming RN, patient lying in bed with TV on, eyes open and Resp even and unlabored. call light within reach.
[2018-07-15] MEDS: AZITHROMYCIN 500MG/NS 250 ML 250 ML IV SCH (19:24)
--- NOTE | 2018-07-15 20:10 | NUR ---
Aaox3.ambulatory.assessment done.no resp.distress.generalized pain voiced.medicated with norco 10 mg po.voided.bed locked an din lowest position.phone and call light within reach.instructed to call for assistance as needed.
[2018-07-15] MEDS: ROPINIROLE HCL 0.25 MG TAB PO SCH (21:27)
[2018-07-16 00:01] VITALS: BP 154/80
[2018-07-16] MEDS: HYDROCODONE/APAP 10MG-325MG TAB PO PRN ×3 (03:05→11:36)
[2018-07-16 05:01] VITALS: BP 152/83
[2018-07-16] MEDS: GABAPENTIN 400 MG CAP PO SCH (05:48)
--- NOTE | 2018-07-16 06:50 | NUR ---
Report given to the oncoming rn.walking rounds done.stable condition.
--- NOTE | 2018-07-16 07:07 | NUR ---
RECEIVED PATIENT AWAKE RESTING IN BED NO SIGNS OF DISTRESS AT THIS TIME. BED LOW, WHEELS LOCKED, SIDE RAILS X2, CALL LIGHT IN EACH. WILL CONTINUE TO MONITOR PATIENT.
[2018-07-16] MEDS: METHYLPREDNISOLONE SOD SUCC 40 MG/ML VIAL 1ML IV SCH (07:35)
[2018-07-16] MEDS: DULOXETINE HCL 30 MG DELAYED RELEASE PO SCH (07:35)
[2018-07-16] MEDS: SUCRALFATE 1 GM/10 ML SUSP PO SCH ×2 (07:35→12:47)
[2018-07-16] MEDS: C NO 9 PO SCH (08:08)
[2018-07-16] MEDS: [UNRECOGNIZED DRUG - OTHER] PO SCH (08:08)
[2018-07-16] MEDS: VIT B PO SCH (08:08)
[2018-07-16] MEDS: IRON FUM PO SCH (08:08)
[2018-07-16 08:24] VITALS: BP 197/87
--- NOTE | 2018-07-16 09:31 | Discharge Summary ---
DISCHARGE DIAGNOSES: 1. Fever with unclear source. 2. Drug eruption, possibly secondary to Zyvox. 3. Stage IV breast cancer. 4. Persistent infiltrates on chest CT. DISCHARGE MEDICATIONS: 1. Albuterol through nebulizer q.4 p.r.n. 2. Alprazolam as needed. 3. Diclofenac 25 mg p.o. daily. 4. Cymbalta 60 mg p.o. daily. 5. Gabapentin 800 mg p.o. q.8. 6. Hydroxyzine 25 mg p.o. b.i.d. 7. Melatonin 2 mg p.o. at bedtime. 8. Zofran 8 mg p.o. q.6 p.r.n. 9. Percocet 10-325 q.8 p.r.n. 10. Ropinirole 0.25 mg at bedtime. 11. Carafate 1 g p.o. before meals. 12. Ambien 10 mg p.o. at bedtime p.r.n. CONSULTING PHYSICIAN: Dr. Caputo of Infectious Disease. RADIOGRAPHIC DATA: Modified barium swallow shows no laryngeal penetration or aspiration. CT scan of the chest shows small pulmonary nodules in the upper lobes, all less than 8 mm in size and persistent airspace opacities, more on the left lower lobe than the right side. HISTORY OF PRESENT ILLNESS: The patient is a 63-year-old woman. She has a history of stage IV breast cancer. She is receiving Herceptin as well as another chemotherapeutic agent once a month from [facility]. She also has some fever and infiltrates on her evaluation. She was recently admitted to the [facility] with fever and pulmonary infiltrates. V/Q scan at that time was negative. She received antibiotics and went home. She now returns with cough and congestion. She notes some fever and confusion. HOSPITAL COURSE: The patient was admitted. She received IV fluids as well as antibiotics. She had gradual improvement with this. Her sensorium also improved. She was seen in consultation by Infectious Disease. DISPOSITION: The patient will be discharged home. She will complete the course of azithromycin and will follow up with Dr. Castanon as well as with [facility]. Parag Castanon MD [facility]/MOD[facility] /[id number]
[2018-07-16 09:45] VITALS: BP 197/87
[2018-07-16 12:07] VITALS: BP 153/80
--- NOTE | 2018-07-16 12:47 | NUR ---
REMOVED PATIENTS IV. CATHETER TIP INTACT AND PRESSURE DRESSING APPLIED.
--- NOTE | 2018-07-16 13:18 | NUR ---
PATIENT DISCHARGED FROM FACILITY. PATIENT GATHERED ALL PERSONAL BELONGINGS, DISCHARGE INSTRUCTIONS, FOLLOW UP INFORMATION, AND PRESCRIPTIONS. LEFT UNIT IN WHEELCHAIR AND WENT HOME VIA PRIVATE AUTO. NO SIGNS OF DISTRESS WHEN LEAVING FACILITY.
== END 2018-07-16 13:19 | disposition home or self-care (01) | DRG 178 ==
LOC: ER 18:53 → ERHOLD 20:24 → IMCU 07-13 11:16 → OBSVTOIN 07-14 17:02 → MED/SURG 07-14 22:43
PROVIDERS: ADMIT Internal Medicine Critical Care Medicine; ATTEND Internal Medicine Critical Care Medicine
DX: J69.0 Pneumonitis due to inhalation of food and vomit (principal); C79.9 Secondary malignant neoplasm of unspecified site; C50.919 Malignant neoplasm of unspecified site of unspecified female breast; Z88.1 Allergy status to other antibiotic agents; Z91.040 Latex allergy status; Z88.0 Allergy status to penicillin; Z88.2 Allergy status to sulfonamides; Z88.8 Allergy status to other drugs, medicaments and biological substances; Z91.048 Other nonmedicinal substance allergy status; Z82.49 Family history of ischemic heart disease and other diseases of the circulatory system; Z79.899 Other long term (current) drug therapy; L27.0 Generalized skin eruption due to drugs and medicaments taken internally; Z17.0 Estrogen receptor positive status [ER+]; R53.81 Other malaise; T36.8X5A Adverse effect of other systemic antibiotics, initial encounter; Y92.230 Patient room in hospital as the place of occurrence of the external cause; R91.8 Other nonspecific abnormal finding of lung field
CPT/HCPCS: 36415; 71045; 71250; 74230; 80053; 81001; 83605; 84145; 85025; 86631; 86738; 87040; 87086; 87449; 96361; 97139; 99284; G0378; J0456; J2020; J2920; J3370; J3410; J7030; J7050

== ENCOUNTER 2018-09-04 20:29 | Emergency (ER) | payer MEDICARE ==
[~2018-09-04] VITALS: Ht 170.2 cm; Wt 73.9 kg
[~2018-09-04 20:29] MED LIST changes: +ALPRAZOLAM2 MG PO; +CARAFATE1 GM/10 ML PO; +DICLOFENAC SODI25 MG PO; +FOLIVANE-PLUS1 EACH PO; +GABAPENTIN800 MG PO; +HYDROXYZINE HCL25 MG PO; +MAGICMOUTH PO; +MELATONIN3 MG PO; +ONDANSETRON HCL8 MG PO; +OXYCODONE-ACET1 EAC3 PO; +ROPINIROLE HC0.25 MG PO; +ZOLPIDEM TARTRA10 MG PO
--- OUTSIDE RECORDS SUMMARY | 2018-09-04 20:32 | XMS REPORT | Clinical Summary ---
Author Author [facility] Address Unknown Phone Unavailable Care Team Providers Care Farm Operations Technical Director Name Role Phone David Osei MD PCP [...] risk for osteoporosis 10/05/2017 Transcribe Access Orders after 09/03/2017 Family History Medical History Relation Name Comments [...] AM CDT Pulse 76 - Temperature - - Respiratory Rate - - Oxygen Saturation - - Inhaled Oxygen - Concentration 06/10/2018 10:42 AM CDT Weight 74.8 kg (165 lb) 06/10/2018 10:42 AM CDT Height 170.2 cm (5' 7") 06/10/2018 10:42 AM CDT Body Mass Index 25.84 Plan of Treatment Care Team Description Date Type Specialty Darya Garcia MD [address] [facility] [address] [facility] [address] [place] [address] [phone] 12/12/2018 Office Visit Neurology Health Maintenance Due Date Last Done Comments DIABETIC RETINAL EYE EXAM 1955 DIABETIC FOOT EXAM 1965 BREAST CANCER SCREENING 2005 COLONOSCOPY SCREENING 2005 SHINGLES VACCINES (#1) 2005 INFLUENZA VACCINE 10/13/2018 Implants Device Identifier Shelf Expiration Date Model / Serial / Lot Implanted Type Area Manufactur er [id number] / / Dilator Baln [id number] [id number] Surgical N/A: N/A BSC 18-19-20mm Cre - [id number] Implants; ENDOSCOPY Implanted: Qty: 1 on 10/20/2016 by [employer]; Luisito Romo MD Extenders; Surgical Wires Procedures Comments Procedure Name Priority Date/Time Associated Diagnosis ECHOCARDIOGRAM 2D Routine 01/24/2018 Malignant neoplasm of COMPLETE W MMODE SPECTRAL 10:20 AM 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 COLOR DOPPLER (20887) breast in female, estrogen receptor positive (HCC) [...] AM CDT overlapping sites of COLOR DOPPLER (54235) right breast in female, estrogen receptor negative Widespread metastatic malignant neoplastic disease Encounter for chemotherapy management 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 09/03/2017 Results * Echocardiogram complete w contrast and 3D if needed (01/24/2018 10:20 AM DIVERSIFIED 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21 [facility] LA Ao Ratio 1.54 [facility] Mmode D E excurs 1.60 [facility] E f slope 0.05 [facility] E prime lat 0.09 [facility] E jaret sept 0.07 [facility] PV acc T slope 3.20 [facility] PV AT 121.11 msec [facility] AoV VTI 0.25 m [facility] LV EF,A2C 67.86 % [facility] LV EF,A4C 69.39 % [facility] LV EF,BP 67.10 % [facility] Jossue Amery,d A2C 7.63 cm [facility] Jossue Amery,d A4C 7.66 cm [facility] Jossue Amery,s A2C 5.49 cm [facility] Jossue Amery,s A4C 5.92 cm [facility] LV SV,A2C [...] MV Decel slope 5.13 m/s2 [facility] Specimen Narrative Performed At [facility] Left ventricular systolic function is normal. Left Ventricular ejection fraction is 55 - 60%. No pericardial effusion Performing Organization Address City/State/Zipcode Phone Number [facility] [address] [place] [address] * [place] Bone Scan Whole Body (01/03/2018 3:00 PM CDT) Specimen Narrative Performed At PROCEDURE:NM BONE SCAN WHOLE BODY [facility] CLINICAL HISTORY:C77.1 Secondary and unspecified malignant neoplasm of intrathoracic lymph nodes, C80.0 Disseminated malignant neoplasmunspecified, widespread metastatic malignant neoplastic disease COMPARISON:Outside bone scan 01/23/2016, CT chest/abdomen/pelvis today TECHNIQUE: The patient was injected with 25 millicuries of [id number] intravenously, followed 3 hours later by whole-body [...] or tendinitis, improved on the right side. 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 [id number] Performing Organization Address City/State/Zipcode Phone Number [facility] [address] [place] [address] * CT Chest Wo Contrast Abdomen Wo Contrast Pelvis Wo Contrast (01/03/2018 10:49 AM CDT) Specimen Narrative Performed At EXAMINATION:CT CHEST WO CONTRAST ABDOMEN WO CONTRAST PELVIS WO CONTRAST [facility] CLINICAL HISTORY: 62 years SdilpoY35.1 Secondary and unspecified malignant neoplasm of intrathoracic [...] Windows: Demonstrate no lytic or blastic lesions.. [id number] Procedure Note Hm Interface, Radiology Results Incoming [...] Windows: Demonstrate no lytic or blastic lesions.. [id number] Performing Organization Address City/State/Zipcode Phone Number [facility] [address] [place] [address] * CT Soft Tissue Neck Wo Contrast (01/03/2018 10:49 AM CDT) Specimen Narrative Performed At EXAMINATION:CT SOFT TISSUE NECK WO CONTRAST [facility] CLINICAL HISTORY:C77.1 Secondary and unspecified malignant [...] pathologic cervical lymph nodes by imaging criteria. [id number] Procedure Note Interface, Radiology Results Incoming - [...] pathologic cervical lymph nodes by imaging criteria. [id number] Performing Organization Address City/State/Zipcode Phone Number [facility] [address] [place] [address] * MRI Brain Wo Contrast (01/03/2018 10:35 AM CDT) Specimen Narrative Performed At EXAMINATION:MRI BRAIN WO CONTRAST [facility] CLINICAL HISTORY:C50.919 Malignant neoplasm of unspecified site [...] are not visible on the prior study. [id number] Procedure Note Interface, Radiology Results Incoming - [...] are not visible on the prior study. [id number] Performing Organization Address City/State/Zipcode Phone Number [facility] [address] [place] [address] * Bone Density (01/03/2018 9:09 AM CDT) Specimen Narrative Performed At EXAMINATION:BONE DENSITY [facility] CLINICAL HISTORY:C77.1 Secondary and unspecified malignant [...] as abnormally low (osteoporosis, increased fracture risk) [id number] Procedure Note Interface, Radiology Results Incoming - [...] as abnormally low (osteoporosis, increased fracture risk) [id number] Performing Organization Address City/State/Zipcode Phone Number [facility] [address] [place] [address] * Echocardiogram complete w contrast and 3D [...] LV EF,BP 59.25 % [facility] Jossue Amery,d A2C 6.66 cm [facility] Jossue Amery,d A4C 7.50 cm [facility] Jossue Amery,s A2C 5.75 cm [facility] Jossue Amery,s A4C 5.66 cm [facility] LV,s 2.68 [...] mmHg [facility] AoV area i VTI 1.42 cm2/m2 [facility] BSA [place] LV SI MOD BP 33.22 ml/m2 [facility] BSA [place] LV Vol Index s 56.06 ml/m2 [facility] bpmod BSA [place] PV Vmn 22.84 m/s [facility] MR Vmax 4.25 m/s [facility] MR peak grad 72.24 mmHg [facility] BMI 25.22 kg/m2 [facility] E wave 216.05 msec [facility] decelartion time MV Peak A Antony 0.96 m/s [facility] MV valve area p 3.51 cm2 [facility] 1/2 method MV Peak E Antony 0.78 m/s [facility] MV stenosis 62.65 ms [facility] pressure 1/2 time AV LVOT peak 3.50 mmHg [facility] gradient RVSP 35.11 mmHg [facility] LV SYS VOL 26.61 ml [facility] LV MASSEY VOL 65.51 ml [facility] LA area s A4C 20.44 cm2 [facility] LV SI Teich 2D 21.09 ml/m2 [facility] LV SV Teich 2D 38.89 ml [facility] LV Vol s Teich 26.61 ml [facility] PSAX LVOT SI 35.01 ml/m2 [facility] BSA [place] 1.87 m2 [facility] AoV Cusp sep 1.49 [facility] AoV Vmn 0.81 [facility] IVS s 2D 1.48 [facility] LV FS Teich 2D 31.01 [facility] MV AE ratio 1.23 [facility] LA Ao Ratio 1.42 [facility] Mmode LV FS Cube 2D 31.01 [facility] LVOT Vmn 0.63 [facility] Pt Size 170.18 [facility] Pt Wt 73.03 [facility] PV AT 122.74 msec [facility] Aov area Vmn 2.38 cm2 [facility] LVOT mean grad 1.71 mmHg [facility] MAX Pred HR 157.43 [facility] 85 of MPHR 133.82 [facility] AoV area I VMN 1.29 cm2/m2 [facility] bsa Calc MPHR 157.43 bpm [facility] IVS pct thck 24.70 % [facility] PLAX LV SI Cube 2D 21.44 ml/m2 [facility] LV SV Cube 2D 39.53 ml [facility] LV vol d cube 58.86 ml [facility] 2D LV vol s cube 19.33 ml [facility] 2D LVPW pct thck 47.96 % [facility] PLAX LVPW s PLAX 1.43 cm [facility] MV Decel slope 3.63 m/s2 [facility] Pred Exer Dur 7.63 [facility] R1 Pred METS R1 6.57 [facility] Velocity Ratio 0.78 m/s [facility] (V1/V2) EF 59.38 % [facility] E/A ratio 0.81 [facility] LV Systolic 20.27 mL/m2 [facility] Volume Index LV Diastolic 47.09 mL/m2 [facility] Volume Index LA volume 57.0 cm3 [facility] LA [...] PV acc T slope 4.50 [facility] Specimen Narrative Performed At [facility] The left ventricle chamber size is normal. Left Ventricular ejection fraction is 55 - 60%. No pericardial effusion Spectral Doppler shows impaired relaxation pattern of left ventricular diastolic filling. Performing Organization Address City/State/Zipcode Phone Number [facility] [address] [place] [address] after 09/03/2017 Insurance Type Payer Benefit Subscriber ID Effective Phone Address Plan / Dates Group Medicare MEDICARE MEDICARE xxxxxxxxxxx 2008- [place], PART A AND Present [place] B Medicaid MEDICAID MEDICAID xxxxxxxxx 2018- Present Advance Directives Patient has advance care planning documents, and code status on file. For more i nformation, please contact: Jorge Alcala [address] [place] [address] Date Inactivated Comments Code Status Date Activated 10/21/2016 10:03 PM Full Code 10/17/2016 4:57 PM Code Status decision reached by: Patient
[2018-09-04] MEDS ORDERED: SODIUM CHLORIDE 0.9% 1000ML 1,000 ML IV STA (20:56)
--- NOTE | 2018-09-04 21:36 | Diagnostic Imaging Report ---
EXAMINATION: CHEST SINGLE (PORTABLE) COMPARISON: CT chest 07/12/2018 INDICATION: Tremors, not feeling well ^ERMD ORDER ^Y DISCUSSION: Frontal view of the chest obtained at 2118 hours. HEART AND MEDIASTINUM: The cardiomediastinal silhouette is unremarkable. LINES: MediPort catheter terminates in the SVC. LUNGS: Stable eventration of the left diaphragm with discoid atelectasis of the overlying lung. Subcentimeter calcified granuloma in the left midlung field is stable. No pneumonia or pulmonary edema. PLEURA: No pleural effusion or pneumothorax. BONES AND SOFT TISSUES: No focal osseous lesion. The soft tissues are normal. IMPRESSION: Left basilar discoid atelectasis. Signed by: Dr. Doreen Richard MD on 09/04/2018 9:33 PM
[2018-09-04] MEDS ORDERED: LORAZEPAM INJ 2 MG/ML VIAL IV ONE (21:45)
--- NOTE | 2018-09-04 21:52 | Diagnostic Imaging Report ---
History: Fall, tremors Comparison studies: None Technique: Axial images were obtained from the skull base to the vertex. Coronal and sagittal reconstructions obtained from the axial data. Dose modulation, iterative reconstruction, and/or weight based adjustment of the mA/kV was utilized to reduce the radiation dose to as low as reasonably achievable. Intravenous contrast: None Findings: Scalp/skull: No abnormalities. No fractures, blastic or lytic lesions. Extra-axial spaces: No masses. No fluid collections. Brain sulci: Appropriate for age. Ventricles: Normal in size and configuration. No hydrocephalus. Parenchyma: No abnormal densities. No masses, hemorrhage, acute or chronic cortical vascular insults. Sellar/suprasellar region: No abnormalities Craniocervical junction: Patent foramen magnum. No Chiari one malformation. IMPRESSION: No abnormalities. Signed by: Dr. Chris Randle M.D. on 09/04/2018 9:49 PM
[2018-09-04] MEDS ORDERED: SODIUM CHLORIDE 0.9% 1000ML 1,000 ML IV ONE (22:00)
[2018-09-04 22:31] LABS: BASOPHILS % 0.5 % (0.0-1.0); EOSINOPHILS # (AUTO) 0.3 (0.0-0.4); HEMATOCRIT 35.4 % (34.2-44.1); LYMPHOCYTES # (AUTO) 3.3 (1.0-3.2); LYMPHOCYTES % 38.9 % (18.0-39.1); MEAN CORPUSCULAR HEMOGLOBIN 29.9 pg (28-32); MEAN CORPUSCULAR HGB CONC 33.9 g/dL (31-35); MEAN CORPUSCULAR VOLUME 88.1 fL (81-99); MONOCYTES # (AUTO) 0.8 (0.2-0.8); MONOCYTES % 9.7 % (4.4-11.3); NEUTROPHILS # (AUTO) 4.1 (2.1-6.9); NEUTROPHILS % 47.5 % (38.7-80.0); PLATELET COUNT 289 x10e3/uL (140-360); RED BLOOD COUNT 4.02 x10e6/uL (3.6-5.1); RED CELL DISTRIBUTION WIDTH 13.4 % (11.7-14.4)
[2018-09-04 22:50] LABS: ALANINE AMINOTRANSFERASE 26 IU/L (0-55); ALBUMIN 4.1 g/dL (3.5-5.0); ALBUMIN/GLOBULIN RATIO 1.3 (0.8-2.0); ALKALINE PHOSPHATASE 109 IU/L (40-150); ANION GAP 12.1 mmol/L (8-16); BLOOD UREA NITROGEN 14 mg/dL (7-26); BUN/CREATININE RATIO 17 (6-25); CALCIUM 9.6 mg/dL (8.4-10.2); CARBON DIOXIDE 28 mmol/L (22-29); CHLORIDE 104 mmol/L (98-107); CREATINE KINASE 62 IU/L (29-168); CREATININE, SERUM 0.83 mg/dL (0.57-1.11); EST GLOMERULAR FILTRATION RATE > 60 ML/MIN (60-); GLUCOSE 97 mg/dL (74-118); INR 0.97; POTASSIUM 4.1 mmol/L (3.5-5.1); PROTHROMBIN TIME 13.4 seconds (11.9-14.5); SODIUM 140 mmol/L (136-145)
[2018-09-04 22:51] LABS: PARTIAL THROMBOPLASTIN TIME 32.6 seconds (23.8-35.5)
[2018-09-04 22:52] LABS: BILIRUBIN,URINE NEGATIVE (NEGATIVE); CLARITY,URINE CLEAR (CLEAR); COLOR,URINE YELLOW (YELLOW); KETONES,URINE NEGATIVE (NEGATIVE); LEUKOCYTE ESTERASE ,URINE TRACE (NEGATIVE); NITRITE,URINE NEGATIVE (NEGATIVE); PROTEIN,URINE DIPSTICK NEGATIVE (NEGATIVE); URINE UROBILINOGEN 0.2 mg/dL (0.2 - 1)
--- NOTE | 2018-09-04 23:00 | NUR ---
PT NOTED TO NOT BE HAVING TREMORS AT THIS TIME, INFORMED DR. AGUILAR; CALL LIGHT IN REACH, FAMILY AT BEDSIDE, WILL CONTINUE TO MONITOR.
[2018-09-04 23:04] LABS: BACTERIA,URINE FEW /HPF; EPITHELIAL CELLS,URINE FEW /LPF; WBC,URINE (MAN) 0-5 /HPF (0-5)
[2018-09-04 23:14] VITALS: BP 135/74
== END 2018-09-04 23:40 | disposition home or self-care (01) ==
LOC: ER 20:29
DX: R25.1 Tremor, unspecified (principal); F41.9 Anxiety disorder, unspecified; E78.00 Pure hypercholesterolemia, unspecified; Z85.3 Personal history of malignant neoplasm of breast; Z85.05 Personal history of malignant neoplasm of liver; Z85.841 Personal history of malignant neoplasm of brain; Z85.118 Personal history of other malignant neoplasm of bronchus and lung
CPT/HCPCS: 36415; 70450; 71045; 80053; 81001; 82140; 82550; 82553; 84484; 85025; 85610; 85730; 87086; 93005; 99284; J2060; J7030

== ENCOUNTER 2018-11-03 20:51 | Emergency (ER) | payer MEDICARE ==
[~2018-11-03] VITALS: Ht 170.2 cm; Wt 73.9 kg
--- OUTSIDE RECORDS SUMMARY | 2018-11-03 20:55 | XMS REPORT | Summary of Care ---
Author Author [facility] - Health Organization [facility] - Health Address Unknown Phone Unavailable Care Team Providers Care Salvationist Name Role Phone China Gore [facility] PCP Reason for Visit * Reason Comments Orders Encounter Details Care Team Description Date Type Department China Gore FNP [address] [place] [address] Orders 10/13/2018 Telephone [facility] [address] [phone] Allergies Comments Active Allergy Reactions Severity Noted Date Umair Inhibitors Shortness of High 05/11/2015 Breath, Other - See comments Adhesive Tape-Silicones Other - See 05/11/2015 comments Cephalexin keflex: Respiratory distress Cephalexin Anaphylaxis High 03/21/2015 Closed throat Ciprofloxacin Anaphylaxis High 03/21/2015 Distress Breathing Codeine Other - See 04/19/2015 comments Respiratory distress Codeine Sulfate Anaphylaxis High 03/21/2015 Respiratory distress// 07/01/17 No iv contrast, oral barium Iodinated Contrast- Oral Other - See High 05/11/2015 And Iv Dye comments Iodine Nausea and/or 06/29/2015 Vomiting Blister Latex Other - See 10/17/2016 comments THROAT STARTS CLOSING Levofloxacin Anaphylaxis High 06/29/2015 Methocarbamol Hives, Other 03/21/2015 - See comments, Swelling Shortness of Breath Morphine Other - See 10/17/2016 comments Respiratory distress Morphine Sulfate Other - See 03/21/2015 comments Other reaction(s): Respiratory distress-prior episode a few months ago Nitrofurantoin Other - See 06/29/2015 Monohyd/M-Cryst comments Penicillin G Other - See 04/19/2015 comments Prochlorperazine Other - See 04/19/2015 comments Shellfish Derived Other - See 08/15/2017 comments Respiratory distress Sulfa (Sulfonamide Shortness of 03/21/2015 Antibiotics) Breath Tramadol Other - See 12/12/2015 comments Vancomycin HCL (Vancocin) specified Reaction; closing throat, Redness Vancomycin Analogues Anaphylaxis High 03/21/2015 documented as of this encounter (statuses as of 10/13/2018) Medications End Date Status Medication Sig Dispensed Refills Start Date Active calcium carbonate 500 mg Take 1 tablet 0 calcium (1,250 mg) tablet by mouth daily. Active HYDROcodone-acetaminophen Take 1 tablet 0 10-325 mg tablet by mouth 8 every 6 (six) hours as needed. Active Magnesium Oxide 250 mg Take 250 mg 0 Tab by mouth daily. Active zolpidem 10 mg tablet Take 1 tablet 2 by mouth 8 daily. Active ALPRAZolam 1 mg tablet Take 1 tablet 90 tablet 0 by mouth at 8 bedtime as needed (anxiety). Active anastrozole 1 mg tablet Take 1 tablet 90 tablet 0 by mouth 8 daily. Active triamcinolone 0.025 % Apply to 15 g 1 cream area(s) 2 8 (two) times daily. Active ROPINIROLE 0.25 mg tablet TAKE ONE (1) 90 tablet 0 TABLET(S) BY 9 MOUTH ONCE A DAY. 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 breast, unspecified estrogen receptor status, unspecified laterality, unspecified site of breast Active DULoxetine 60 mg Take 1 90 capsule 1 capsuleIndications: capsule by 9 Anxiety mouth daily. Active cyanocobalamin 1,000 1 mL by 1 mL 5 mcg/mL Intramuscular 9 injectionIndications: route once Vitamin B deficiency every month. Active gabapentin 800 mg Take 1 tablet 270 tablet 1 tabletIndications: by mouth 3 9 Neuropathy (three) times daily. Active pregabalin 150 mg Take 1 180 capsule 1 capsuleIndications: capsule by 9 Neuropathy mouth 2 (two) times daily. Active diphenhydrAMINE 25 mg Take 1 tablet 24 tablet 0 tabletIndications: Fever, by mouth 9 unspecified fever cause, every 4 Chest wall pain, Right (four) hours shoulder pain, as needed for unspecified chronicity, Itching or Metastatic breast cancer, Allergies. Neck pain, Depression, unspecified depression type, Anxiety Active cephALEXin (KEFLEX) 250 Take 250 mg 0 mg capsule by mouth 3 (three) times daily. documented as of this encounter (statuses as of 10/13/2018) Active Problems Problem Noted Date Fever 09/13/2018 Neck pain 09/13/2018 Type 2 diabetes mellitus Metastatic breast cancer Depression Chronic pain Anxiety Acute bronchitis documented as of this encounter (statuses as of 10/13/2018) Social History Date Tobacco Use Types Packs/Day Years Used Never Smoker Smokeless Tobacco: Never Used Drinks/Week oz/Week Comments Alcohol Use No Sex Assigned at Date Recorded Not on file Industry Job Start Date Occupation Not on file Not on file Not on file Travel End Travel History Travel Start No recent travel history available. documented as of this encounter Last Filed Vital Signs Not on filedocumented in this encounter Plan of Treatment Care Team Description Date Type Specialty Madeleine Banks, [facility] [address] [facility] [address] [place] [address] [phone] 10/14/2018 Office Visit Gastroenterology David Osei MD [address] [place] [address] [address] [place] [address] [employer], [employer] 10/26/2018 Appointment Echocardiograph China Gore, [employer] [address] [place] [address] 12/08/2018 Office Visit Family Medicine Maria Alejandra Esteban MD [address] [place] [address] [place] [phone] 12/12/2018 Office Visit Cardiology Health Maintenance Due Date Last Done Comments PNEUMOCOCCAL 0-64 YEARS 1961 COMBINED SERIES (1 of 3 - PCV13) URINE MICROALBUMIN 1965 FOOT EXAM 1973 DTaP,Tdap,and Td Vaccines 1974 (1 - Tdap) PAP SMEAR 1976 COLONOSCOPY 2005 Zoster Recombinant 2005 Vaccine (SHINGRIX) (1 of 2) EYE EXAM 07/19/2018 07/19/2017 INFLUENZA VACCINE 11/13/2018 HgA1C 03/09/2019 09/07/2018 LDL-C 09/08/2019 09/07/2018 MAMMOGRAM 09/24/2019 09/23/2018 CREATININE (SERUM) 09/27/2019 09/26/2018, 09/14/2018, 09/13/2018, Additional history exists HEPATITIS C (HCV) SCREEN Completed 09/07/2018 documented as of this encounter Results Not on filedocumented in this encounter Insurance Type Payer Benefit Subscriber ID Effective Phone Address Plan / Dates Group Medicare MEDICARE MEDICARE xxxxxxxxxxx 2008- [phone] [address] Present [id number] [place] [id number] Medicaid [facility] MEDICAID xxxxxxxxx 2018- [phone] [address] [place] Present [id number] [place] [address] documented as of this encounter
--- OUTSIDE RECORDS SUMMARY | 2018-11-03 20:55 | XMS REPORT | Summary of Care ---
Author Author [facility] - Health Organization [facility] - Health Address Unknown Phone Unavailable Care Team Providers Care Online Tutor Name Role Phone China Gore PCP Reason for Referral * (Routine) Referred By Contact Referred To Contact Status Reason Specialty Diagnoses / Procedures China Gore FNP [address] [place] [address] Authorized Gastroenterology Diagnoses Dysphagia, unspecified type P rocedures CONSULT/REFERRAL GASTROENTEROLOGY Reason for Visit * Reason Comments Shortness of Breath Encounter Details Care Team Description Date Type Department China Gore FNP [address] [place] [address] Dysphagia, unspecified type (Primary Dx) 10/12/2018 Office Visit [facility] [address] [facility] [address] [place] [address] Allergies Comments Active Allergy Reactions Severity Noted Date Umair Inhibitors Shortness of High 05/11/2015 Breath, Other - See comments Adhesive Tape-Silicones Other - See 05/11/2015 comments Cephalexin keflex: Respiratory distress Cephalexin Anaphylaxis High 03/21/2015 Closed throat Ciprofloxacin Anaphylaxis High 03/21/2015 Distress Breathing Codeine Other - See 04/19/2015 comments Respiratory distress Codeine Sulfate Anaphylaxis High 03/21/2015 Respiratory distress// /18 No iv contrast, oral barium Iodinated Contrast- [...] of this encounter Last Filed Vital Signs Reading Time Taken Comments Vital Sign 128/78 10/12/2018 4:11 PM CDT Blood Pressure 83 10/12/2018 4:11 PM CDT Pulse - - Temperature - - Respiratory Rate 97% 10/12/2018 4:11 PM CDT Oxygen Saturation - - Inhaled Oxygen Concentration 72.6 kg (160 lb 1.6 oz) 10/12/2018 4:11 PM CDT Weight - - Height 25.08 09/13/2018 4:08 PM CDT Body Mass Index documented in this encounter Patient Instructions * Patient Instructions* China Gore FNP - 10/12/2018 4:00 PM CDT Dysphagia (Adult) Dysphagia istrouble swallowing.If you have dysphagia, you may have symptoms that include: Choking or coughing when you eat or drink Food getting stuck Drooling Vomiting after you eat or drink Aspirating (inhaling into the lungs) foods or liquids when you swallow The main causes of dysphagia are problems that affect the mouth, throat or tongu e. Dysphagia may be caused by a problem with the esophagus (tube that carries fo od from the mouth to the stomach). These include blockage, swelling, or irritati on from acid reflux or injury. Problems in the brain, such as a stroke or [place] son's disease, can affect the muscles that coordinate swallowing. Dysphagia is treated by treating the cause. You may be given medicine to reduce stomach acid or control muscle spasms. If the problem doesn't go away, a procedu re can be done to widen (dilate) the esophagus.If you have muscle or nerve pro blems, you may be advised to see a speech or occupational therapist. He or she may give you exercises and instructions to help make eating safer. Home care To help ease the symptoms of dysphagia: Take any medicine youve been given exactly as directed. Ask for liquid med icines if you need them. To make eating easier: ? Eat slowly. ? Eat in a relaxed setting. ? Dont talk while you eat. ? Take small bites. Chew slowly and completely before you swallow. ? Sit upright during and after meals. ? Puree solid foods if needed. Thicken liquids with milk, juice, broth, gravy, o r starch to make them easier to swallow. ? Ask your healthcare provider if a liquid diet may be better for you. Follow-up care Follow up with your healthcare provider or as directed. Your healthcare provider can give you information about tests you may need. When to seek medical advice Call your healthcare provider right away for any of the following: Inability to keep down food or liquid Symptoms that get worse quickly Coughing that won't stop Continuing to lose weight Fever of 100.4F (38C) or higher, or as directed by your healthcare provid er Other symptoms as indicated by your healthcare provider Call 911 Call 911 for any of the following: Trouble breathing Inability to talk Loss of consciousness Date Last Reviewed: 09/03/201419996876-0564 [employer]. [address] [place] [address], [place], [place] [address] 7. All rights reserved. This information is not intended as a substitute for pro fessional medical care. Always follow your healthcare professional's instruction s. Larynx-Lifting Exercises for Dysphagia Larynx-lifting exercises can help you swallow better. You may need these exercis es if you have trouble swallowing (dysphagia). Your larynx is the part of your t hroat that is also known as your voice box. The exercises can improve the streng th, mobility, and control of muscles in the larynx. Over time they may help you to swallow normally again. These exercises are sometimes used with other types o f swallowing exercises. A speech-language pathologist (FINISHING SUPERVISOR) will tell you what e xercises to do. How swallowing works Before you swallow, you chew your food to a size, shape, and texture that can be swallowed. When you swallow, this material passes through your mouth and down t hrough parts of your throat called the pharynx and larynx. From here the food go es down through a long tube (esophagus). It then enters your stomach. This movem ent requires a series of actions from the muscles in these areas. When you breathe, air passes through your pharynx and larynx, too. It then trave ls down through a long tube called the trachea before it reaches your lungs. The re is a small flap of tissue called the epiglottis that covers your trachea when you swallow food or liquid. This is so food and liquid dont go into your tra tani and lungs. Muscle weakness if any of these areas can make swallowing diffic ult. When larynx-lifting exercises are needed You might need to use larynx-lifting exercises if you have dysphagia. Dysphagia can lead to food or fluid going into the airways and lungs (aspiration). This ca n lead to pneumonia and other problems. Because of this, its important to emma at your dysphagia right away. An FINISHING SUPERVISOR will prescribe larynx-lifting exercises you are having trouble with your second phase of swallowing. Many conditions can lead to trouble swallowing, such as: Stroke Severe dental problems Mouth sores Conditions that reduce saliva, such as Sjogren syndrome Parkinson disease or other neurologic conditions Muscular dystrophies Blockage in the esophagus, such as a tumor History of radiation therapy or surgery for throat cancer When you have a problem with the second phase of swallowing, you may need to wor k the muscles in your throat. Larynx-lifting exercises can help you keep your fo od moving down through the pharynx and into the esophagus. Risks of larynx-lifting exercises Larynx-lifting exercises are very safe. If you have any discomfort, you can stop doing them. Let your FINISHING SUPERVISOR know right away. Getting ready for your exercises Before you start these exercises, you may need to change your positioning. Your FINISHING SUPERVISOR will show you how to do so, if necessary. For example, it may be better if y ou do these exercises while out of bed. It is best to remove distractions from your environment. Turn off the television . Do the exercises at a time when you wont have visitors. You will be able to fully focus and get the most benefit from them. You can do these exercises at a ny time that is convenient for you. Your FINISHING SUPERVISOR will let you know if there is anyth ing else you need to do before getting started. Sample exercises You may do the exercises in your hospital room or at home. Often you can do them on your own. They may be used with other types of exercises to help you swallow better. Your FINISHING SUPERVISOR can show you the exercises you will need to do and tell you how often t o do them. You may need to do them several times a day. For example, you may be asked to do these: Beau maneuver. Start to swallow. Use your throat muscles to stop your A dams apple at its highest point for a couple of seconds. At first, it may hel p you to use fingers to help keep it up. Then finish the swallow. Allow your Ada ms apple to return to a resting position. Falsetto exercise. Use your voice to slide up the pitch scale as high as you can, to a high, squeaky voice. Hold the high note for several seconds with as mu ch strength as possible. While you do this, you can gently pull up on your Cristobal s apple. Both of these exercises help lift the larynx, which may improve your swallowing. You will likely be doing larynx-lifting exercises along with other types of swal lowing exercises. If so, do these in the same order each time. This will help ma ke sure you dont forget any exercises. Keeping track of your progress Keep a record of the times you do your swallowing exercises. It will remind you to do your exercises as prescribed. It will also give helpful feedback on your p rogress to your FINISHING SUPERVISOR. Write down what exercises you did and when you did them. Al so write down any problems you had. Discuss them with your FINISHING SUPERVISOR. As your ability to swallow improves, your risk of aspiration may lessen. Your SL P may be able to change your diet. You may also be able to eat certain types of food again. This can improve your nutrition, your overall health, and your quali ty of life. You may still have problems with swallowing even after practicing these exercise s often. Your FINISHING SUPERVISOR will tell you what kind of progress to expect. Continue to practice all of your swallowing exercises as prescribed by your FINISHING SUPERVISOR. You will benefit most from following the therapy exactly as prescribed. Your pr ogress may be less if you skip practice sessions. Work closely with all the memb ers of your healthcare team. This will help maximize your chance of a good outco me. Date Last Reviewed: 05/13/201619998792-5630 [employer]. [address] [place] [address] 7. All rights reserved. This information is not intended as a substitute for pro fessional medical care. Always follow your healthcare professional's instruction s. documented in this encounter Progress Notes * China Gore FNP - 10/12/2018 4:00 PM CDT Cc: Chief Complaint Patient presents with Shortness of Breath Jennifer Kuhn is a 63 year old female. Patient here for the following condition: 2 week follow up Location: neck and knee Duration: 2 week follow up Severity: no pain now Context: Patient is to have her port checked for pain she is having to port area and neck. She has a burning pain that radiates from port up to right shoulder. She is seeing psychiatry and pain management. We have discussed medications that may cause dizziness and drowsiness. She denies recent falls. She is not complai anabela of more pain. She had Chemo today and has some flushing and fatigue from th e sun however denies acute complaints. She hat CT done and results discussed. Ab normal finding of esophagus. Patient admits to sometimes having difficulty swall owing she states she has had swallow test which was normal. She denies having EG D in the apst Quality: improved Modifying factors: pain management Associated symptoms: none Timing: am=pm Patient was brought by self. Patient is speaking complete sentences and normal t one. Denies chest pain, shortness of breath, dizziness, weakness or palpitations . Allergies Jennifer is allergic to umair inhibitors; cephalexin; ciprofloxacin; codeine sulfate; iodinated contrast- oral and iv dye; levofloxacin; vancomycin analogues; adhesi ve tape-silicones; codeine; iodine; latex; methocarbamol; morphine; morphine sul fate; nitrofurantoin monohyd/m-cryst; penicillin g; prochlorperazine; shellfish derived; sulfa (sulfonamide antibiotics); and tramadol. Medications Outpatient Medications Prior to Visit Medication Sig Dispense Refill cephALEXin (KEFLEX) 250 mg capsule Take 250 mg by mouth 3 (three) times krista y. diphenhydrAMINE 25 mg tablet Take 1 tablet by mouth every 4 (four) hours as needed for Itching or Allergies. 24 tablet 0 cyanocobalamin 1,000 mcg/mL injection 1 mL by Intramuscular route once every month. 1 mL 5 DULoxetine 60 mg capsule Take 1 capsule by mouth daily. 90 capsule 1 gabapentin 800 mg tablet Take 1 tablet by mouth 3 (three) times daily. 270 t ablet 1 pregabalin 150 mg capsule Take 1 capsule by mouth 2 (two) times daily. 180 c apsule 1 FOLIVANE-PLUS 125 mg iron- 1 mg Cap TAKE ONE (1) CAPSULE BY MOUTH 2 (TWO) TI MES DAILY. 180 capsule 0 ROPINIROLE 0.25 mg tablet TAKE ONE (1) TABLET(S) BY MOUTH ONCE A DAY. 90 tab let 0 ALPRAZolam 1 mg tablet Take 1 tablet by mouth at bedtime as needed (anxiety) . 90 tablet 0 anastrozole 1 mg tablet Take 1 tablet by mouth daily. 90 tablet 0 calcium carbonate 500 mg calcium (1,250 mg) tablet Take 1 tablet by mouth da dayne. HYDROcodone-acetaminophen 10-325 mg tablet Take 1 tablet by mouth every 6 (s ix) hours as needed. 0 Magnesium Oxide 250 mg Tab Take 250 mg by mouth daily. triamcinolone 0.025 % cream Apply to area(s) 2 (two) times daily. 15 g 1 zolpidem 10 mg tablet Take 1 tablet by mouth daily. 2 No facility-administered medications prior to visit. Histories Past Medical History: Diagnosis Date Acute bronchitis Anxiety Chronic pain Depression Metastatic breast cancer Metastatic breast cancer Type 2 diabetes mellitus Past Surgical History: Procedure Laterality Date APPENDECTOMY BREAST LUMPECTOMY SECTION CHOLECYSTECTOMY HYSTERECTOMY Social History Socioeconomic History Marital status: Spouse name: Not on file Number of children: Not on file Years of education: Not on file Highest education level: Not on file Occupational History Not on file Social Needs Financial resource strain: Not on file Food insecurity: Worry: Not on file Inability: Not on file Transportation needs: Medical: Not on file Non-medical: Not on file Tobacco Use Smoking status: Never Smoker Smokeless tobacco: Never Used Substance and Sexual Activity Alcohol use: No Drug use: No Sexual activity: Yes Lifestyle Physical activity: Days per week: Not on file Minutes per session: Not on file Stress: Not on file Relationships Social connections: Talks on phone: Not on file Gets together: Not on file Attends anabaptism service: Not on file Active member of club or organization: Not on file Attends meetings of clubs or organizations: Not on file Relationship status: Not on file Intimate partner violence: Fear of current or ex partner: Not on file Emotionally abused: Not on file Physically abused: Not on file Forced sexual activity: Not on file Other Topics Concern Not on file Social History Narrative Not on file Family History Problem Relation Age of Onset No Significant Medical Problems Mother No Significant Medical Problems Father Review of Systems Constitutional: Negative for activity change, chills, diaphoresis, fatigue and f ever. HENT: Negative for congestion, sinus pressure and sore throat. Eyes: Negative for photophobia, pain and redness. Respiratory: Negative for cough, chest tightness, shortness of breath and wheezi ng. Cardiovascular: Negative for chest pain, palpitations and leg swelling. Gastrointestinal: Negative for abdominal pain, constipation, nausea and vomiting . Genitourinary: Negative for dysuria, urgency, polyuria, frequency, flank pain, v aginal pain and pelvic pain. Musculoskeletal: Positive for arthralgias, gait problem and myalgias. Negative f or back pain, joint swelling, neck pain and neck stiffness. Skin: Negative for color change, pallor and rash. Neurological: Positive for dizziness. Negative for speech difficulty, weakness, light-headedness, numbness and headaches. Psychiatric/Behavioral: Negative for confusion and sleep disturbance. The patien t is not nervous/anxious. All other systems reviewed and are negative. Hematological: Negative for adenopathy. Does not bruise/bleed easily. Endocrine: Negative for hair loss, polydipsia, polyphagia and polyuria. Vital Signs BP 128/78 (BP Location: Right arm, Patient Position: Sitting) | Pulse 83 | Wt 160 lb 1.6 oz (72.6 kg) | SpO2 97% | BMI 25.08 kg/m Physical Exam Constitutional: She is oriented to person, place, and time. She appears well-dev eloped and well-nourished. No distress. HENT: Head: Normocephalic and atraumatic. Right Ear: External ear normal. Left Ear: External ear normal. Nose: Nose normal. Mouth/Throat: Oropharynx is clear and moist. Eyes: Pupils are equal, round, and reactive to light. Conjunctivae and EOM are n ormal. Neck: Normal range of motion. Neck supple. No tracheal deviation present. Cardiovascular: Normal rate, regular rhythm, normal heart sounds and intact dist al pulses. No murmur heard. Pulmonary/Chest: Effort normal and breath sounds normal. No respiratory distress . She has no wheezes. She has no rales. Abdominal: Soft. Bowel sounds are normal. She exhibits no distension and no mass . There is no tenderness. There is no rebound and no guarding. Musculoskeletal: Normal range of motion. She exhibits no edema, tenderness or de formity. Lymphadenopathy: She has no cervical adenopathy. Neurological: She is alert and oriented to person, place, and time. No cranial n erve deficit or sensory deficit. She exhibits normal muscle tone. Coordination n ormal. Skin: Skin is warm and dry. Capillary refill takes less than 2 seconds. No rash noted. She is not diaphoretic. Psychiatric: She has a normal mood and affect. Her behavior is normal. Judgment and thought content normal. Nursing note and vitals reviewed. Assessment/Plan 1. Dysphagia, unspecified type (primary encounter diagnosis) Plan: CONSULT/REFERRAL GASTROENTEROLOGY Small Frequent Meals Take medications as prescribed Avoid spicy or high acid foods such as: tomatoes, grape fruit, citrus, fruits Avoid tobacco, alcohol and caffeine products Avoid laying down right after meals Plenty of water To follow up with GI Plan of care, desired health behaviors, goals and medications discussed with pat ient and educational resources and self-management tools provided. Patient/famil y/guardian voices understanding. Barriers to care: none Ability to manage care: good As necessary, prescribed medications and potential significant medication side e ffects or medication interactions were discussed with the patient and pt will le t me know if any occur. Call or return to clinic prn if these symptoms worsen or fail to improve as anti cipated. Call or report to ER if symptoms should symptoms progress or worsen. The patient indicates understanding of these issues and agrees with the plan. AVS printed and given to patient/family/guardian China Gore RN, BSN, [employer] MACHINE HAND [facility] [address] [facility] Office: [phone] documented in this encounter Plan of Treatment Care Team Description Date Type Specialty Madeleine Banks, ACNP [address] [facility] [address] [place] [address] [phone] 10/14/2018 Office Visit Gastroenterology David Osei MD [address] [place] [address] [address] [place] [address] Tte, [facility] 10/26/2018 Appointment Echocardiograph China Gore FNP [address] [place] [address] 12/08/2018 Office Visit Family Medicine Maria Alejandra Esteban MD [address] [address] 12/12/2018 Office Visit Cardiology Health Maintenance Due [...] Results Not on filedocumented in this encounter Visit Diagnoses Diagnosis Dysphagia, unspecified type - Primary documented in this encounter Insurance Type Payer Benefit Subscriber ID Effective Phone Address Plan / Dates Group Medicare MEDICARE MEDICARE xxxxxxxxxxx 2008- [phone] [id number] [place] [address] Medicaid [id number] MEDICAID xxxxxxxxx 2018- [phone] [address] [place] [id number] [place] [address] documented as of this encounter"
--- OUTSIDE RECORDS SUMMARY | 2018-11-03 20:55 | XMS REPORT | Summary of Care ---
Author Author [facility] - Health Organization [facility] - Health Address Unknown Phone Unavailable Care Team Providers Care Car Porter Name Role Phone China Gore SUPERVISOR [facility] PCP Reason for Visit * Reason Comments DME rollator Encounter Details Care Team Description Date Type Department Tala Kline, [facility] [address] [place] [address] DME (rollator) 10/06/2018 Patient [facility] [address] [facility] [address] [place] [phone] Allergies Comments Active Allergy Reactions Severity Noted [...] as of this encounter (statuses as of 10/06/2018) Medications End Date Status Medication Sig Dispensed [...] as of this encounter (statuses as of 10/06/2018) Active Problems Problem Noted Date Fever 09/13/2018 Neck pain 09/13/2018 Type 2 diabetes mellitus Metastatic breast cancer Depression Chronic pain Anxiety Acute bronchitis documented as of this encounter (statuses as of 10/06/2018) Social History Date Tobacco Use Types Packs/Day [...] Signs Not on filedocumented in this encounter Progress Notes * Tala Kline LMSW - 10/06/2018 4:38 PM CDT Social Work Note PRIVATE EQUITY ANALYST received referral to assist in getting patient a rollator. PRIVATE EQUITY ANALYST reviewed chart and patient has Medicare A and B. PRIVATE EQUITY ANALYST noted that FARAZ Conklin had completed this request and sent the referral to [address], [place] [phone] / fax to try and assist patient with this item. Please consult PRIVATE EQUITY ANALYST if additional needs arise. Tala Kline LMSW Social Work - Care Management [phone] cell documented in this encounter Plan of Treatment Care Team Description Date Type Specialty China Gore, ANIBAL [address] [place] [address] 10/13/2018 Office Visit Family Medicine David Osei MD [address] [place] [address] [address] [place] [phone] Tte, [facility] 10/26/2018 Appointment Echocardiograph China Gore, SUPERVISOR [facility] [address] [place] [address] 12/08/2018 Office Visit Family Medicine Maria Alejandra Esteban MD [address] [address] 12/12/2018 Office Visit Cardiology Health [...] Dates Group Medicare MEDICARE MEDICARE xxxxxxxxxxx 2008- [phone] [address] Present [id number] [place] [id number] Medicare Adv PPO [facility] [id number] 2018-P MANAGED MEDICARE HEALTHCARE resent DUAL COMPLETE [place] xxxxxxxxx 2018- [phone] [address] [place] [id number] [place] [address] documented as of this encounter
--- OUTSIDE RECORDS SUMMARY | 2018-11-03 20:55 | XMS REPORT | Summary of Care ---
Author Author [facility] - Health Organization [facility] - Health Address Unknown Phone Unavailable Care Team Providers Care Lab Nurse Name Role Phone China Gore BRAND ATTENDANT PCP Encounter Details Care Team Description Date Type Department Doctor Unassigned, [place] [address] [place] [address] 10/03/2018 Orders Only [facility] [address] [place] [address] Allergies Comments Active Allergy Reactions Severity Noted [...] Care Team Description Date Type Specialty China Gore FNP [address] [place] [address] 10/13/2018 Office Visit Family Medicine David Osei MD [address] [place] [address] [place] [phone] Tte, [facility] 10/26/2018 Appointment Echocardiograph China Gore FNP [address] [place] [address] 12/08/2018 Office Visit Family Medicine Maria Alejandra Esteban MD [address] [place] [phone] 12/12/2018 Office Visit Cardiology Health Maintenance [...] Completed 09/07/2018 documented as of this encounter Procedures Comments Procedure Name Priority Date/Time Associated Diagnosis DME/SUPPLY JUSTIFICATION Routine 10/03/2018 12:01 AM CDT documented in this encounter Results Not on filedocumented in this encounter Insurance Type Payer Benefit Subscriber ID Effective Phone Address Plan / Dates Group Medicare MEDICARE MEDICARE xxxxxxxxxxx 2008- [phone] [address] Present [id number] [place] [id number] Medicare Adv PPO [facility] [id number] 2018-P MANAGED MEDICARE HEALTHCARE resent DUAL COMPLETE Medicaid [place] MEDICAID xxxxxxxxx 2018- [phone] [address] [place] Present [id number] [place] [address] documented as of this encounter
--- OUTSIDE RECORDS SUMMARY | 2018-11-03 20:55 | XMS REPORT | Summary of Care ---
Author Author [facility] - Health Organization [facility] - Health Address Unknown Phone Unavailable Care Team Providers Care Asbestos Shingle Inspector Name Role Phone China Gore LIVING NURSE PCP Reason for Visit * Reason Comments Assessment Encounter Details Care Team Description Date Type Department China Gore FNP [address] [place] [address] Assessment 10/06/2018 Telephone [facility] [address] [phone] Allergies Comments Active Allergy Reactions [...] Description Date Type Specialty China Gore FNP [address] [place] [address] 10/13/2018 Office Visit Family Medicine David Osei MD [address] [place] [address] [place] [phone] Tte, [facility] 10/26/2018 Appointment Echocardiograph China Gore FNP [address] [place] [address] 12/08/2018 Office Visit Family Medicine Maria Alejandra Esteban MD [address] [address] [place] [phone] 12/12/2018 Office Visit Cardiology Health Maintenance Due [...] Dates Group Medicare MEDICARE MEDICARE xxxxxxxxxxx 2008- [phone] [address] Present [id number] [place] [address] [facility] [id number] 2018-P MANAGED MEDICARE HEALTHCARE resent DUAL COMPLETE Medicaid [facility] MEDICAID xxxxxxxxx 2018- [phone] [address] [place] Present [id number] [place] [address] documented as of this encounter
--- OUTSIDE RECORDS SUMMARY | 2018-11-03 20:55 | XMS REPORT | Summary of Care ---
Author Author [facility] - Health Organization [facility] - Health Address Unknown Phone Unavailable Care Team Providers Care Scullion Chief Name Role Phone China Gore PCP Reason for Referral * (Routine) Referred By Contact Referred To Contact Status Reason Specialty Diagnoses / Procedures China Gore FNP [address] [place] [address] Authorized Gastroenterology Diagnoses Dysphagia, unspecified type P rocedures CONSULT/REFERRAL GASTROENTEROLOGY Reason for Visit * Reason Comments Shortness of Breath Encounter Details Care Team Description Date Type Department China Gore FNP [address] [place] [address] Dysphagia, unspecified type (Primary Dx) 10/12/2018 Office Visit [facility] [address] [facility] [address] [place] [address] Allergies Comments Active Allergy Reactions [...] the brain, such as a stroke or Orange son's disease, can affect the muscles that [...] talk Loss of consciousness Date Last Reviewed: 09/03/201419994249-2334 [employer]. [address] [place] [address], [place], [place] [address] 7. All rights reserved. This information is [...] o f swallowing exercises. A speech-language pathologist (DRY CHAIN WORKER) will tell you what e xercises to [...] emma at your dysphagia right away. An DRY CHAIN WORKER will prescribe larynx-lifting exercises you are having [...] you can stop doing them. Let your DRY CHAIN WORKER know right away. Getting ready for your exercises Before you start these exercises, you may need to change your positioning. Your DRY CHAIN WORKER will show you how to do so, [...] time that is convenient for you. Your DRY CHAIN WORKER will let you know if there is anyth ing else you need to do before getting started. Sample exercises You may do the exercises in your hospital room or at home. Often you can do them on your own. They may be used with other types of exercises to help you swallow better. Your DRY CHAIN WORKER can show you the exercises you will [...] feedback on your p rogress to your DRY CHAIN WORKER. Write down what exercises you did and when you did them. Al so write down any problems you had. Discuss them with your DRY CHAIN WORKER. As your ability to swallow improves, your risk of aspiration may lessen. Your SL P may be able to change your diet. You may also be able to eat certain types of food again. This can improve your nutrition, your overall health, and your quali ty of life. You may still have problems with swallowing even after practicing these exercise s often. Your DRY CHAIN WORKER will tell you what kind of progress to expect. Continue to practice all of your swallowing exercises as prescribed by your DRY CHAIN WORKER. You will benefit most from following the therapy exactly as prescribed. Your pr ogress may be less if you skip practice sessions. Work closely with all the memb ers of your healthcare team. This will help maximize your chance of a good outco me. Date Last Reviewed: 05/13/201619993403-2073 [employer]. [address] [place] [address] 7. All rights reserved. This information is [...] file Gets together: Not on file Attends baptism service: Not on file Active member of [...] given to patient/family/guardian China Gore RN, BSN, [employer] [facility] [address] [facility] Office: [phone] documented in this encounter Plan of Treatment Care Team Description Date Type Specialty Madeleine Banks, ACNP [address] [facility] [address] [place] [address] [phone] 10/14/2018 Office Visit Gastroenterology David Osei MD [address] [place] [address] [address] [place] [address] Tte, [facility] 10/26/2018 Appointment Echocardiograph China Gore FNP [address] [place] [address] 12/08/2018 Office Visit Family Medicine Maria Alejandra Esteban MD [address] [phone] 12/12/2018 Office Visit Cardiology Health [...] Dates Group Medicare MEDICARE MEDICARE xxxxxxxxxxx 2008- [phone] [address] Present [id number] [place] [address] Medicaid [place] MEDICAID xxxxxxxxx 2018- [phone] [address] [place] Present [id number] [place] [address] documented as of this encounter"
--- OUTSIDE RECORDS SUMMARY | 2018-11-03 20:56 | XMS REPORT | Summary of Care ---
Author Author [facility] - Health Organization [facility] - Health Address Unknown Phone Unavailable Care Team Providers Care Rn Maternity Name Role Phone China Gore SYSTEMS DESIGNER PCP Reason for Visit * Reason Comments Xray Results Encounter Details Care Team Description Date Type Department China Gore FNP [address] [place] [address] Xray Results 10/17/[address] [facility] [address] [phone] Allergies Comments Active Allergy Reactions [...] as of this encounter (statuses as of 10/17/2018) Medications End Date Status Medication Sig Dispensed [...] as of this encounter (statuses as of 10/17/2018) Active Problems Problem Noted Date Fever 09/13/2018 Neck pain 09/13/2018 Type 2 diabetes mellitus Metastatic breast cancer Depression Chronic pain Anxiety Acute bronchitis documented as of this encounter (statuses as of 10/17/2018) Social History Date Tobacco Use Types Packs/Day [...] Treatment Care Team Description Date Type Specialty David Osei MD [address] [place] [address] [address] [place] [address] Tte, [facility] 10/26/2018 Appointment Echocardiograph Madeleine Banks, [facility] [address] [facility] [address] [place] [address] [phone] 11/09/2018 Office Visit Gastroenterology China Gore, SYSTEMS DESIGNER [address] [place] [address] 12/08/2018 Office Visit Family Medicine Maria Alejandra Esteban MD [address] [place] [phone] 12/12/2018 Office Visit Cardiology Health Maintenance Due [...] Dates Group Medicare MEDICARE MEDICARE xxxxxxxxxxx 2008- [phone] [address] Present [id number] [place] [address] Medicaid [facility] MEDICAID xxxxxxxxx 2018- [phone] [address] [facility] Present [id number] [place] [address] documented as of this encounter
--- OUTSIDE RECORDS SUMMARY | 2018-11-03 20:56 | XMS REPORT | Summary of Care ---
Author Author [facility] Organization [facility] Address Unknown Phone Unavailable Care Team Providers Care Classics Professor Name Role Phone Suzanne James CLINICAL OUTCOMES MANAGER PCP Reason for Referral * (Routine) Referred By Contact Referred To Contact Status Reason Specialty Diagnoses / Procedures Graciela Gannon FNP [address] [place] [address] Suzanne James CLINICAL OUTCOMES MANAGER [address] [place] [address] New Request Diagnoses SOB (shortness of breath) P rocedures Discharge Follow-up: PCP SUZANNE JAMES; 1 Week * Radiology Services ([facility]) Referred By Contact Referred To Contact Status Reason Specialty Diagnoses / Procedures Angie Mejias DO [address] [place] [address]. [place] [address] [place] [address] New Request Diagnostic Diagnoses Radiology SOB (shortness of breath) P rocedures US CHEST * Radiology Services ([facility]) Referred By Contact Referred To Contact Status Reason Specialty Diagnoses / Procedures Angie Mejias DO [address] [facility]. [address] [place] [address] New Request Diagnostic Diagnoses Radiology SOB (shortness of breath) P rocedures US CHEST * MRI/CAT Scan (STAT) Referred By Contact Referred To Contact Status Reason Specialty Diagnoses / Procedures Angie Mejias DO [address] [facility] [address] [place] [phone] New Request Diagnostic Diagnoses Radiology SOB (shortness of breath) P rocedures CT THORAX WO CONTRAST * MRI/CAT Scan (STAT) Referred By Contact Referred To Contact Status Reason Specialty Diagnoses / Procedures Angie Mejias DO [address] [place] [address]. RT [address] [place] [address] New Request Diagnostic Diagnoses Radiology SOB (shortness of breath) P rocedures CT THORAX WO CONTRAST * Radiology Services (STAT) Referred By Contact Referred To Contact Status Reason Specialty Diagnoses / Procedures Kimmie Golden [address] [place] [address] New Request Diagnostic Diagnoses Radiology SOB (shortness of breath) P rocedures Chest 2 Views * Radiology Services (STAT) Referred By Contact Referred To Contact Status Reason Specialty Diagnoses / Procedures Kimmie Golden [address] [place] [address] New Request Diagnostic Diagnoses Radiology SOB (shortness of breath) P rocedures Chest 2 Views Reason for Visit * 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 RT [address] [place] [address] [phone] SOB (shortness of breath) 10/18/2018 Emergency [facility] Medicine/Surgery 10/20/2018 [address] [place] [address] Allergies Comments Active Allergy Reactions Severity Noted [...] as of this encounter (statuses as of 10/20/2018) Medications End Date Status Medication Sig Dispensed [...] pain, Depression, unspecified depression type, Anxiety Active amLODIPine 2.5 mg Take 1 tablet 30 tablet 1 tabletIndications: SOB by mouth 9 (shortness of breath) daily. Active HYDROcodone-acetaminophen Take 1 tablet 20 tablet 0 5-325 mg by mouth 9 tabletIndications: SOB every 6 (six) (shortness of breath) hours as needed for Pain (scale 4-6). Active furosemide 40 mg Take 1 tablet 30 tablet 0 tabletIndications: SOB by mouth 9 (shortness of breath) daily. 10/20/2018 Discontinued cephALEXin (KEFLEX) 250 Take 250 mg 0 mg capsule by mouth 3 (three) times daily. documented as of this encounter (statuses as of 10/20/2018) Active Problems Problem Noted Date SOB (shortness of breath) 10/18/2018 Fever 09/13/2018 Neck pain 09/13/2018 Type 2 diabetes mellitus Metastatic breast cancer Depression Chronic pain Anxiety Acute bronchitis documented as of this encounter (statuses as of 10/20/2018) Social History Date Tobacco Use Types Packs/Day [...] Signs Reading Time Taken Comments Vital Sign 146/97 10/20/2018 7:26 AM CDT Blood Pressure 87 10/20/2018 7:26 AM CDT Pulse 36.5 C (97.7 F) 10/20/2018 7:26 AM CDT Temperature 18 10/20/2018 7:26 AM CDT Respiratory Rate 95% 10/20/2018 7:26 AM CDT Oxygen Saturation - - Inhaled Oxygen Concentration 71 kg (156 lb 8 oz) 10/20/2018 4:22 AM CDT Weight 170.2 cm (5' 7") 10/18/2018 9:32 PM CDT Height 24.51 10/18/2018 9:32 PM CDT Body Mass Index documented in this encounter Progress Notes * Angie Mejias, DO - 10/19/2018 5:24 PM CDT Medicine Progress Note Jennifer Tran is a 63 year old female :1955 Adm:10/18/2018 2:23 PM day 0 Allergy:Umair inhibitors; Cephalexin; Ciprofloxacin; C odeine sulfate; Iodinated contrast- oral and iv dye; Levofloxacin; Vancomycin an alogues; Adhesive tape-silicones; Codeine; Iodine; Latex; Methocarbamol; Morphin e; Morphine sulfate; Nitrofurantoin monohyd/m-cryst; Penicillin g; Prochlorperaz ine; Shellfish derived; Sulfa (sulfonamide antibiotics); and Tramadol Subjective: Interim History: Overnight admit for orthopnea, on exam 97% o RA sitting, 93% on RA felt with ext tru anxiety. Improved sitting up. Review of Hx/Meds: PMH: Past Medical History: Diagnosis Date Acute bronchitis Anxiety Chronic pain Depression Metastatic breast cancer Metastatic breast cancer Type 2 diabetes mellitus PSH: has a past surgical history that includes section; appendectomy; cholecystectomy; hysterectomy; and breast lumpectomy. Current Scheduled Medications Current IV Current Facility-Administered Medications: furosemide (LASIX) injection 20 mg, 20 mg, Slow IV Push, Q12H, Ezekiel Mejias DO, 20 mg at 10/19/18 1533 ketorolac (TORADOL) injection 15 mg, 15 mg, Slow IV Push, Q6HPRN, Erendira Mejiasd, lidocaine (LIDODERM) 5 % (700 mg/patch) patch 1 Patch, 1 Patch, Topical, ON CE, Angie Mejias DO acetaminophen (TYLENOL) tablet 650 mg, 650 mg, Oral, Q6HPRN, Martín Chen MD ALPRAZolam (XANAX) tablet 1 mg, 1 mg, Oral, QHSPRN, Martín Chen MD, 1 m g at 10/19/18 0012 anastrozole (ARIMIDEX) tablet 1 mg, 1 mg, Oral, DAILY, Martín Chen MD, 1 mg at 10/19/18 0802 DULoxetine (CYMBALTA) capsule 60 mg, 60 mg, Oral, DAILY, Martín Chen MD , 60 mg at 10/18/18 2213 famotidine (PEPCID AC) tablet 20 mg, 20 mg, Oral, BID, Martín Chen MD, 20 mg at 10/19/18 0802 gabapentin (NEURONTIN) capsule 800 mg, 800 mg, Oral, QID, Martín Chen M D, 800 mg at 10/19/18 1655 heparin injection 5,000 Units, 5,000 Units, Subcutaneous, Q12H, Aliya Chen MD, 5,000 Units at 10/19/18 0803 HYDROcodone-acetaminophen (NORCO 5) 5-325 mg tablet 1 tablet, 1 tablet, Ora l, Q6HPRN, Martín Chen MD, 1 tablet at 10/19/18 1446 ondansetron (ZOFRAN (PF)) injection 4 mg, 4 mg, Slow IV Push, Q6HPRN, Martín Aranda MD pramipexole (MIRAPEX) tablet 0.25 mg, 0.25 mg, Oral, DAILY, Martín Chen MD, 0.25 mg at 10/18/18 2213 zolpidem (AMBIEN) tablet 10 mg, 10 mg, Oral, DAILY, Martín Chen MD Objective: Vitals: Vitals: 10/19/18 0811 10/19/18 1030 10/19/18 1200 10/19/18 1512 BP: (!) 151/83 (!) 151/83 (!) 162/87 (!) 152/84 Pulse: 78 84 76 Resp: Temp: 36.9 C (98.4 F) 36.4 C (97.5 F) 36.5 C (97.7 F) TempSrc: Oral Oral Oral SpO2: 100% 96% 94% Weight: Height: Physical Exam: General: NAD, Alert, lying in bed comfortable, cogent speech. HEENT: anicteric, oral mucosa dry Neck: supple, no JVD, no bruits. Chest: CTA B/L, no W/R/C. Heart: RRR, S1/S2, no M/G/R Abdominal: BS normoactive, soft, ND, NT. Skin/Extremities: no rash, no cyanosis, warm and dry, no LE edema. Neurological: CN II-XII grossly intact, no focal deficits. Labs: BMP:BMP NA (mmol/L) Date Value 10/19/2018 142 10/18/2018 142 09/26/2018 143 09/14/2018 140 09/13/2018 139 K (mmol/L) Date Value 10/19/2018 3.9 10/18/2018 3.9 09/26/2018 4.3 09/14/2018 4.0 09/13/2018 4.1 CALCIUM (mg/dL) Date Value 10/19/2018 9.4 10/18/2018 9.7 09/26/2018 9.7 09/14/2018 8.8 09/13/2018 9.7 CL (mmol/L) Date Value 10/19/2018 101 10/18/2018 101 09/26/2018 103 09/14/2018 103 09/13/2018 98 BUN (mg/dL) Date Value 10/19/2018 17 10/18/2018 16 09/26/2018 18 09/14/2018 17 09/13/2018 15 CREATININE (mg/dL) Date Value 10/19/2018 0.58 10/18/2018 0.66 09/26/2018 0.63 09/14/2018 0.53 09/13/2018 0.59 GLUCOSE (mg/dL) Date Value 10/19/2018 97 10/18/2018 79 09/26/2018 100 09/14/2018 125 (H) 09/13/2018 115 (H) CO2 TOTAL (mmol/L) Date Value 10/19/2018 35 (H) 10/18/2018 33 (H) 09/26/2018 30 09/14/2018 29 09/13/2018 30 LFT: Hepatic Function Panel ALBUMIN (g/dL) Date Value 10/18/2018 4.3 T PROTEIN (g/dL) Date Value 10/18/2018 7.4 TOTAL BILI (mg/dL) Date Value 10/18/2018 0.3 BILI UNCON (mg/dL) Date Value 10/18/2018 0.1 BILI CONJ (mg/dL) Date Value 10/18/2018 0.0 ALT(SGPT) (U/L) Date Value 10/18/2018 44 AST(SGOT) (U/L) Date Value 10/18/2018 44 (H) ALK PHOS (U/L) Date Value 10/18/2018 90 CBC:CBC WBC (10*3/L) Date Value 10/19/2018 7.37 RBC (10*6/L) Date Value 10/19/2018 4.05 PLT (10*3/L) Date Value 10/19/2018 232 HGB (g/dL) Date Value 10/19/2018 12.1 HCT (%) Date Value 10/19/2018 37.3 Troponin: Recent Labs 10/18/18 1618 TROPNI 0.003 I have reviewed all relevant labs Imaging: Chest 2 Views Result Date: 10/18/2018 EXAM: XR CHEST 2 VW HISTORY: SOB COMPARISON: None FINDINGS: A right Chemo-Port i s in place. The lungs are underinflated. Streaky bibasilar opacities represent s ubsegmental atelectasis, improved from prior exam. No focal consolidation, pleur al effusion or pneumothorax is seen. The cardiac silhouette is normal in size. N o acute bony abnormality. No acute cardiopulmonary abnormality. I, Albertina Muñiz MD., have reviewed this st udy and agree with the above report. Ct Cervical Spine Wo Contrast Result Date: 09/28/2018 * * * * * * * * ORIGINAL REPORT * * * * * * * * HISTORY:Headache, acute, normal neuro exam Dizziness, non-specific fall 7/ TECHNIQUE: CT of the head and cervic al spine was performed without IV contrast. COMPARISON:None. FINDINGS: CT HEAD: The ventricles and sulci are appropriate for patient's age. There is no midline shift. The basal cisterns are preserved. No large vascular territory infarction, intracranial hemorrhage or mass effect is seen. The extracranial tissues demons trate no acute findings. CT cervical spine: A dilated and ectatic appearance of the esophagus is seen (2:32). Left-sided diverticulum may also be present. There is mild anterolisthesis of C3 on C4 and C4 on C5. The vertebral body heights are preserved and no acute fractures are seen. Craniocervical junction demonstrates normal alignment. Multilevel degenerative changes are noted in the form of mar ginal osteophytes and uncinate spurs and facet arthropathy. Small focus of ossif ication of the posterior longitudinal ligament is seen at C3-C4. A representativ e level is moderate spinal canal stenosis with moderate to severe left and moder ate right neural foraminal narrowing. An ill-defined hyperdensity is noted in th e right thyroid lamina, possibly representing treatment changes. A right-sided c entral line is identified. 1. No acute intracranial findings. 2. No acute osseous findings in the cervica l spine. Multilevel degenerative changes as discussed above. 3. Dilated and ect atic esophagus, with a possible diverticulum. Correlation with patient's history is recommended. Ct Head Wo Contrast Result Date: 09/28/2018 * * * * * * * * ORIGINAL REPORT * * * * * * * * HISTORY:Headache, acute, normal neuro exam Dizziness, non-specific fall 7/ TECHNIQUE: CT of the head and cervic al spine was performed without IV contrast. COMPARISON:None. FINDINGS: CT HEAD: The ventricles and sulci are appropriate for patient's age. There is no midline shift. The basal cisterns are preserved. No large vascular territory infarction, intracranial hemorrhage or mass effect is seen. The extracranial tissues demons trate no acute findings. CT cervical spine: A dilated and ectatic appearance of the esophagus is seen (2:32). Left-sided diverticulum may also be present. There is mild anterolisthesis of C3 on C4 and C4 on C5. The vertebral body heights are preserved and no acute fractures are seen. Craniocervical junction demonstrates normal alignment. Multilevel degenerative changes are noted in the form of mar ginal osteophytes and uncinate spurs and facet arthropathy. Small focus of ossif ication of the posterior longitudinal ligament is seen at C3-C4. A representativ e level is moderate spinal canal stenosis with moderate to severe left and moder ate right neural foraminal narrowing. An ill-defined hyperdensity is noted in th e right thyroid lamina, possibly representing treatment changes. A right-sided c entral line is identified. 1. No acute intracranial findings. 2. No acute osseous findings in the cervica l spine. Multilevel degenerative changes as discussed above. 3. Dilated and ect atic esophagus, with a possible diverticulum. Correlation with patient's history is recommended. Ct Thorax Wo Contrast Result Date: 10/18/2018 PROCEDURE: CT CHEST NON CONTRAST - CHEST PROTOCOL CLINICAL INDICATION: Shortness of breath Chest pain or SOB, pleurisy or effusion suspected COMPARISON: None. TECHNIQUE: Helical CT was performed of the chest (lung apices to bases). Images were reconstructed at 1.25 mm slice thickness. MIP and coronal & sagittal MPR images were generated and reviewed. FINDINGS: Lower neck/thyroid: Small hypodense right thyroid nodule noted. Lungs: Pulmonary nodules identified as following: Right upper lobe 6 mm (2:46) Right middle lobe 4 mm (2:98) Left upper lobe 5 mm (2:49) Left lower lobe granuloma is noted. Bilateral lower lungs atelectasis with multifocal groundglass opacities. Central airway: Unremarkable. Pleura: No pleural effusion, thickening or pneumothorax. Thoracic aorta and gre at vessels: Multifocal calcified plaques are noted, including coronary arteries . Pulmonary arteries: Unremarkable. Heart and pericardium: Unremarkable cardiac morphology and pericardium. Lymph nodes: No enlarged thoracic lymph nodes. Media stinum: Unremarkable. Thoracic spine and chest wall: The bones are osteopenic. M ild multilevel spinal osteophytosis and degenerative disc disease are noted. Oth er Lines/Tubes/Devices/Hardware: A right Port-A-Cath is visualized, with distal tip terminated within the SVC. Visualized upper abdomen: Extensive surgical flaherty ges of the stomach are noted. Patient is status post cholecystectomy. A low atte nuated hepatic observation measuring 1.8 x 1.2 cm is noted within segment 6, pot entially reflecting cyst. Bilateral lower lung atelectasis with multifocal groundglass opacities. Findings potentially reflecting infectious/inflammatory process. Multiple pulmonary nodu les as detailed above. Recommend a 3-6 month follow-up to assess for potential c hanges. ITorey MD., have reviewed this study and agree with dagoberto campos above report. Bi Diagnostic Tomosynthesis Bilateral Result Date: 09/23/2018 Examination: BI DIAGNOSTIC TOMOSYNTHESIS BILATERAL History: Patient is 63 year o ld and is seen for: Referral needed. No relevant family history has been docume nted for this patient. No relevant hormone history has been documented for this patient. Surgical history includes left lumpectomy for breast cancer. Computer-a ided detection (CAD) utilized. Comparisons : prior mammography dating back to . Findings: The breasts have scattered areas of fibroglandular density. There is no evidence of suspicious masses, calcifications, or other abnormal fin dings. The patient has had a previous lumpectomy in the left breast. There is a stable benign appearing right breast mass. There has been no suspicous interval change. Impression: No mammographic evidence of malignancy. Recommendation: [facility] mammographic follow-up - Bilateral BI-RADS Category: Both 2 - Benign These f indings and recommendations were discussed with the patient at the conclusion of today's examination. Xr Knee 3 Vw Right Result Date: 10/14/2018 EXAM: XR KNEE 3 VW RIGHT HISTORY: 63 years-old Female knee pain after fall NAPOLEON RISON: None. FINDINGS: Mild predominantly medial compartment joint space narrowi ng, subchondral sclerosis, and osteophytosis. No acute fracture or dislocation i s present. Patellofemoral marginal osteophytes are noted. Tibial spine hypertrop hy is present. Trace suprapatellar effusions is identified. No soft tissue abno rmality is noted. Mild knee osteoarthrosis. No acute osseous abnormality. Xr Shoulder 2+ Vw Right Result Date: 10/14/2018 EXAM: XR SHOULDER 2+ VW RIGHT HISTORY: 63 yearsFemale shoulder pain after fall C OMPARISON: None FINDINGS: No acute fracture or dislocation is present. The acrom ioclavicular and glenohumeral joints alignment is maintained. A chemotherapy por t projects over the right chest wall Mild to moderate osteoarthritic changes aff ect the acromioclavicular joint in the form of joint space narrowing, subchondra l sclerosis and marginal osteophytosis. Milder changes affect the glenohumeral j oint. No acute osseous abnormality. Mild to moderate osteoarthrosis of the acromioclav icular and glenohumeral joints. Assessment and plan: Active Problems: SOB (shortness of breath) Acute Diastolic CHF: -Trial diuresis -Strict I/O -Daily weights Right neck pain: Patient states started around port going to neck -Continue pain management -Ultrasound right neck Anxiety: -Continue home meds including duloxetine and Xanax Chronic pain: -Continue [place] Metastatic breast cancer: -Oncology consult -continue anastrozole DVT prophylaxis: heparin Disposition: possible discharge within 24 hours Signed: Angie Mejias DO * Tila Kelley LBSW - 10/19/2018 2:00 PM CDT Care Management Discharge Disposition Note (DCDN) 5-2-1 Interventions: Clear discharge plan 5-2-1 Providers: Silver Solderer/Microsoft Architect -2-1 Patient Capacity Improvements: Discharge Plan for ongoing care and services: Home Health () Discharge location(s): Home Health location: [address] [place], [place] (Ph) [phone] (F) [phone] Patient choice completed for referred services: Yes Discussed with patient/patients family involved in decision making: Patient or family caregiver understands, and agrees with discharge plan. Community resources/referrals made or provided to patient: Resources/Referrals: Transportation: Private Vehicle Additional Information: Dc with home health CM/SW Name & Contact number: MICHAEL Rogers Ph. [phone] The following information has been provided to the facility noted above: reason for the patient discharge or transfer; patients physical and psychosocial sta tus; summary of care, treatment, services provided to patient; and the patient p rogress toward goals. * Josefina Trejo [facility] - 10/19/2018 10:38 AM CDT Care Management Social Functional Assessment Patient Name: Jennifer Tran Age: [age] year old Sex: female 23P Previous admit date: N/A Current diagnosis and co-morbidities: SOB Readmission Questions: Was patient discharged from any acute care hospital within the last 30 days: No Social Functional Assessment: Primary language spoken/preferred: [place] Mental Status: Alert & Oriented to Person,Place & Time Information given by: Child Patient's support system: Spouse Name and number of support system: Fabian TRAN pt spouse p. Primary Compass Operator: Self MPOA: No Living Arrangement: Apartment Address of living arrangement : [address] [place] [address] Persons living in home: Self;Same as support system Barriers to returning home: None Baseline functional status- ambulation: Independent Functional status-baseline personal care: Independent Baseline functional status- driving: Independent Baseline functional status- grocery shopping: Independent Functional status-baseline housekeeping: Independent Functional status-baseline meal prep: Independent Current functional status same as prior: Yes Do you have a PCP?: Yes Name of PCP: Suzanne James FNP Home Health Care Agency: Other(Past used [facility] wants re-established. ) Provider Services: Yes Provider Agency: Provider coming out 6 1/2 hours week. Spoke with pt about re-ev al. Provider agency days and hours: 6 hours week. DME Company: No Equipment: None Hemodialysis: No Community resources utilized: None Funding Resources: Medicare A & B Prescription coverage plan: Medicaid unlimited slots Pharmacy where meds are filled: Other Other pharmacy: [facility]. Anticipated services prior to disharge: Continue Medical Eval;Reassess prior to discharge;PT/OT/ST Expected mode of discharge transportation: Family Additional Recommendations for DC: Pt was discontinued from [facility] wo uld like to re-start services with PT/OT. [facility]. PT/OT need see. Additional info required for discharge planning: Pending medical evaluation Recommended discharge plan: Home;Home with new Home Health;Provider Services SFA Complete: Social Functional Assessment complete: Yes Alcohol Use Screening (AUDIT-C) How often do you have a drink containing alcohol?: Never SCORE: 0 Role of Care Management explained. Josefina Trejo LMSW Social Work/Care Management Office.[phone]. Cell. [phone] Email. [email or web address] Josefina Trejo LMSW Social Work/Care Management Office.[phone]. Cell. [phone] Email. [email or web address] documented in this encounter Plan of Treatment Care Team Description Date Type Specialty Suzanne James FNP [address] [place] [phone] 10/27/2018 Office Visit Family Medicine Madeleine Banks, [facility] [address] [facility] [address] [place] [address] [phone] 11/09/2018 Office Visit Gastroenterology Suzanne James FNP [address] [place] [phone] 12/08/2018 Office Visit Family Medicine Maria Alejandra Esteban MD [address] [place] [address] [place] [phone] 12/12/2018 Office Visit Cardiology Health Maintenance Due [...] 09/08/2019 09/07/2018 MAMMOGRAM 09/24/2019 09/23/2018 CREATININE (SERUM) 10/20/2019 10/19/2018, 10/18/2018, 09/26/2018, Additional history exists HEPATITIS C (HCV) SCREEN Completed 09/07/2018 documented as of this encounter Procedures Comments Procedure Name Priority Date/Time Associated Diagnosis CBC WITH DIFFERENTIAL Routine 10/20/2018 3:47 AM CDT CBC WITH DIFF Routine 10/20/2018 3:47 AM CDT BASIC METABOLIC PANEL Routine 10/20/2018 (NA, K, CL, CO2, GLUCOSE, 3:47 AM CDT BUN, CREATININE, CA) US CHEST [facility] 10/19/2018 SOB (shortness of breath) 8:31 PM CDT ECHO ROUTINE W/DOPPLER Routine 10/19/2018 SOB (shortness of breath) COLOR 9:06 AM CDT CBC WITH DIFFERENTIAL Routine 10/19/2018 2:39 AM CDT CBC WITH DIFF Routine 10/19/2018 2:39 AM CDT BASIC METABOLIC PANEL Routine 10/19/2018 (NA, K, CL, CO2, GLUCOSE, 2:39 AM CDT BUN, CREATININE, CA) CT THORAX WO CONTRAST STAT 10/18/2018 SOB (shortness of breath) 7:45 PM CDT URINALYSIS STAT 10/18/2018 SOB (shortness of breath) 4:49 PM CDT CBC WITH DIFFERENTIAL STAT 10/18/2018 SOB (shortness of breath) 4:18 PM CDT N-TERMINAL PRO-BNP STAT 10/18/2018 SOB (shortness of breath) 4:18 PM CDT D-DIMER STAT 10/18/2018 SOB (shortness of breath) 4:18 PM CDT CBC WITH DIFF Routine 10/18/2018 SOB (shortness of breath) 4:18 PM CDT BASIC METABOLIC PANEL STAT 10/18/2018 SOB (shortness of breath) (NA, K, CL, CO2, GLUCOSE, 4:18 PM CDT BUN, CREATININE, CA) HEPATIC FUNCTION PANEL STAT 10/18/2018 SOB (shortness of breath) (99517) (ALB,T.PRO,BILI 4:18 PM CDT T,BU/BC,ALT,AST,ALK PHOS) TROPONIN I STAT 10/18/2018 SOB (shortness of breath) 4:18 PM CDT LIPASE STAT 10/18/2018 SOB (shortness of breath) 4:18 PM CDT XR CHEST 2 VW STAT 10/18/2018 SOB (shortness of breath) 3:32 PM CDT EKG-12 LEAD STAT 10/18/2018 3:03 PM CDT EKG-12 LEAD Routine 10/18/2018 2:20 PM CDT documented in this encounter Results * CBC WITH DIFFERENTIAL (10/20/2018 3:47 AM CDT) WBC 6.41 4.30 - 11.10 [facility] 10*3/L [facility] RBC 4.56 3.93 - 5.25 10*6/L [facility] HGB 13.6 11.6 - 15.0 g/dL [facility] HCT 41.2 35.7 - 45.2 % [facility] MCV 90.4 80.6 - 95.5 fL [facility] MCH 29.8 25.9 - 32.8 pg [facility] MCHC 33.0 31.6 - 35.1 g/dL [facility] RDW-SD 42.7 39.0 - 49.9 fL [facility] RDW-CV 13.0 12.0 - 15.5 % [facility] PLT 269 166 - 358 10*3/L [facility] MPV 9.9 9.5 - 12.9 fL [facility] NRBC/100 WBC 0.0 0.0 - 10.0 /100 WBCs [facility] NRBC x10^3 <0.01 10*3/L [facility] GRAN MAT (NEUT) 40.4 % [facility] IMM GRAN % 0.20 % [facility] LYMPH % 45.1 % [facility] MONO % 8.4 % [facility] EOS % 5.3 % [facility] BASO % 0.6 % [facility] GRAN MAT 2.59 1.88 - 7.09 10*3/uL [facility] x10^3(ANC) [facility] IMM GRAN x10^3 <0.03 0.00 - 0.06 10*3/uL [facility] LYMPH x10^3 2.89 1.32 - 3.29 10*3/uL [facility] MONO x10^3 0.54 0.33 - 0.92 10*3/uL [facility] EOS x10^3 0.34 0.03 - 0.39 10*3/uL [facility] BASO x10^3 0.04 0.01 - 0.07 10*3/uL [facility] Specimen Blood - ARM, RIGHT Performing Organization Address City/State/Zipcode Phone Number [facility] CLIA: [id number], [address] [place] [address] [facility] * BASIC METABOLIC PANEL (NA, K, CL, CO2, GLUCOSE, BUN, CREATININE, CA) (10/20/2018 3:47 AM CDT) NA 141 135 - 145 mmol/L [facility] K 4.0 3.5 - 5.0 mmol/L [facility] CL 96 (L) 98 - 108 mmol/L [facility] CO2 TOTAL 36 (H) 23 - 31 mmol/L [facility] AGAP 9 2 - 16 [facility] BUN 16 7 - 23 mg/dL [facility] GLUCOSE 124 (H) 70 - 110 mg/dL [facility] CREATININE 0.63 0.50 - 1.04 mg/dL [facility] CALCIUM 10.1 8.6 - 10.6 mg/dL [facility] eGFR 95.4 mL/min/1.73m2 [facility] Calculation [facility] (Non-[facility] [place]) eGFR 115.7 mL/min/1.73m2 [facility] Calculation [facility] ([facility] [place]) Specimen Blood - ARM, RIGHT Narrative Performed At Association of Glomerular Filtration Rate (GFR) and Staging of Kidney Disease* [facility] + + + + [facility] | GFR (mL/min/1.73 m2)| With Kidney Damage|Without Kidney Damage CAMPUS + + + + |>90|Stage one| Normal + + + + |60-89|Stage two| Decreased GFR + + + + |30-59|Stage three| Stage three + + + + |15-29|Stage four | Stage four + + + + |<15 (or dialysis)|Stage five | Stage five + + + + *Each stage assumes the associated GFR level has been in effect for at least three months.Stages 1 to 5, with or without kidney disease, indicate chronic kidney disease. Notes: Determination of stages one and two (with eGFR >59mL/min/1.73 m2) requires estimation of kidney damage for at least three months as defined by structural or functional abnormalities of the kidney, manifested by either: Pathological abnormalities or Markers of kidney damage (including abnormalities in the composition of the blood or urine or abnormalities in imaging tests). Performing Organization Address City/State/Zipcode Phone Number [facility] CLIA: [id number], [address] [place] [address] [facility] * US CHEST (10/19/2018 8:31 PM CDT) Specimen Impressions Performed At FINDINGS/ IMPRESSION: PACS/VR/DOSE Ultrasound of the right chest wall about the Chemo-Port was performed. Normal skin and subcutaneous soft tissues echogenicity noted. No fluid collection is identified. The visualized vessels are patent with normal flow. Arnold Andrade MD., have reviewed this study and agree with the above report. Narrative Performed At ULTRASOUND OF THE RIGHT CHEST WALL PACS/VR/DOSE HISTORY: Pt C/O Rt chest/ neck pain associated with port. . COMPARISON: None. Procedure Note [facility], Radiant Results Inft User - 10/19/2018 8:46 PM CDT ULTRASOUND OF THE RIGHT CHEST WALL HISTORY: Pt C/O Rt chest/ neck pain associated with port. . COMPARISON: None. IMPRESSION FINDINGS/ IMPRESSION: Ultrasound of the right chest wall about the Chemo-Port was performed. Normal skin and subcutaneous soft tissues echogenicity noted. No fluid collection is identified. The visualized vessels are patent with normal flow. Torey Andrade MD., have reviewed this study and agree with the above report. Performing Organization Address City/State/Zipcode Phone Number PACS/VR/DOSE * CBC WITH DIFFERENTIAL (10/19/2018 2:39 AM CDT) WBC 7.37 4.30 - 11.10 [facility] 10*3/L [facility] RBC 4.05 3.93 - 5.25 10*6/L [facility] HGB 12.1 11.6 - 15.0 g/dL [facility] HCT 37.3 35.7 - 45.2 % [facility] MCV 92.1 80.6 - 95.5 fL [facility] MCH 29.9 25.9 - 32.8 pg [facility] MCHC 32.4 31.6 - 35.1 g/dL [facility] RDW-SD 45.1 39.0 - 49.9 fL [facility] RDW-CV 13.3 12.0 - 15.5 % [facility] PLT 232 166 - 358 10*3/L [facility] MPV 9.4 (L) 9.5 - 12.9 fL [facility] NRBC/100 WBC 0.0 0.0 - 10.0 /100 WBCs [facility] NRBC x10^3 <0.01 10*3/L [facility] GRAN MAT (NEUT) 36.3 % [facility] IMM GRAN % 0.30 % [facility] LYMPH % 47.4 % [facility] MONO % 9.9 % [facility] EOS % 5.7 % [facility] BASO % 0.4 % [facility] GRAN MAT 2.68 1.88 - 7.09 10*3/uL [facility] x10^3(ANC) [facility] IMM GRAN x10^3 <0.03 0.00 - 0.06 10*3/uL [facility] LYMPH x10^3 3.49 (H) 1.32 - 3.29 10*3/uL [facility] MONO x10^3 0.73 0.33 - 0.92 10*3/uL [facility] EOS x10^3 0.42 (H) 0.03 - 0.39 10*3/uL [facility] BASO x10^3 0.03 0.01 - 0.07 10*3/uL [facility] Specimen Blood - ARM, RIGHT Performing Organization Address City/State/Zipcode Phone Number [facility] CLIA: [id number], [address] [place] [address] [facility] * Basic Metabolic Panel (NA, K, CL, CO2, GLUCOSE, BUN, CREATININE, CA) (10/19/2018 2:39 AM CDT) NA 142 135 - 145 mmol/L [facility] K 3.9 3.5 - 5.0 mmol/L [facility] CL 101 98 - 108 mmol/L [facility] CO2 TOTAL 35 (H) 23 - 31 mmol/L [facility] AGAP 6 2 - 16 [facility] BUN 17 7 - 23 mg/dL [facility] GLUCOSE 97 70 - 110 mg/dL [facility] CREATININE 0.58 0.50 - 1.04 mg/dL [facility] CALCIUM 9.4 8.6 - 10.6 mg/dL [facility] eGFR 105.0 mL/min/1.73m2 [facility] Calculation [facility] (Non-[facility] [place]) eGFR 127.3 mL/min/1.73m2 [facility] Calculation [facility] ([facility] [place]) Specimen Blood - ARM, RIGHT Narrative Performed At Association of Glomerular Filtration Rate (GFR) and Staging of Kidney Disease* [facility] + + + + [facility] | GFR (mL/min/1.73 m2)| With Kidney Damage|Without Kidney Damage CAMPUS + + + + |>90|Stage one| Normal + + + + |60-89|Stage two| Decreased GFR + + + + |30-59|Stage three| Stage three + + + + |15-29|Stage four | Stage four + + + + |<15 (or dialysis)|Stage five | Stage five + + + + *Each stage assumes the associated GFR level has been in effect for at least three months.Stages 1 to 5, with or without kidney disease, indicate chronic kidney disease. Notes: Determination of stages one and two (with eGFR >59mL/min/1.73 m2) requires estimation of kidney damage for at least three months as defined by structural or functional abnormalities of the kidney, manifested by either: Pathological abnormalities or Markers of kidney damage (including abnormalities in the composition of the blood or urine or abnormalities in imaging tests). Performing Organization Address City/State/Zipcode Phone Number [facility] CLIA: [id number], [address] [place] [address] [facility] * CT THORAX WO CONTRAST (10/18/2018 7:45 PM CDT) Specimen Impressions Performed At Bilateral lower lung atelectasis with multifocal groundglass opacities. PACS/VR/DOSE Findings potentially reflecting infectious/inflammatory process. Multiple pulmonary nodules as detailed above. Recommend a 3-6 month follow-up to assess for potential changes. Arnold Andrade MD., have reviewed this study and agree with the above report. Narrative Performed At PROCEDURE: CT CHEST NON CONTRAST - CHEST PROTOCOL PACS/VR/DOSE CLINICAL INDICATION: Shortness of breath Chest pain or SOB, pleurisy or effusion suspected COMPARISON:None. TECHNIQUE:Helical CT was performed of the chest (lung apices to bases). Images were reconstructed at 1.25 mm slice thickness. MIP and coronal & sagittal MPR images were generated and reviewed. FINDINGS: Lower neck/thyroid: Small hypodense right thyroid nodule noted. Lungs: Pulmonary nodules identified as following: Right upper lobe 6 mm (2:46) Right middle lobe 4 mm (2:98) Left upper lobe 5 mm (2:49) Left lower lobe granuloma is noted. Bilateral lower lungs atelectasis with multifocal groundglass opacities. Central airway: Unremarkable. Pleura: No pleural effusion, thickening or pneumothorax. Thoracic aorta and great vessels:Multifocal calcified plaques are noted, including coronary arteries. Pulmonary arteries: Unremarkable. Heart and pericardium: Unremarkable cardiac morphology and pericardium. Lymph nodes: No enlarged thoracic lymph nodes. Mediastinum: Unremarkable. Thoracic spine and chest wall: The bones are osteopenic. Mild multilevel spinal osteophytosis and degenerative disc disease are noted. Other Lines/Tubes/Devices/Hardware: A right Port-A-Cath is visualized, with distal tip terminated within the SVC. Visualized upper abdomen: Extensive surgical changes of the stomach are noted. Patient is status post cholecystectomy. A low attenuated hepatic observation measuring 1.8 x 1.2 cm is noted within segment 6, potentially reflecting cyst. Procedure Note [facility], Radiant Results Inft User - 10/18/2018 8:23 PM CDT PROCEDURE: CT CHEST NON CONTRAST - CHEST PROTOCOL CLINICAL INDICATION: Shortness of breath Chest pain or SOB, pleurisy or effusion suspected COMPARISON: None. TECHNIQUE: Helical CT was performed of the chest (lung apices to bases). Images were reconstructed at 1.25 mm slice thickness. MIP and coronal & sagittal MPR images were generated and reviewed. FINDINGS: Lower neck/thyroid: Small hypodense right thyroid nodule noted. Lungs: Pulmonary nodules identified as following: Right upper lobe 6 mm (2:46) Right middle lobe 4 mm (2:98) Left upper lobe 5 mm (2:49) Left lower lobe granuloma is noted. Bilateral lower lungs atelectasis with multifocal groundglass opacities. Central airway: Unremarkable. Pleura: No pleural effusion, thickening or pneumothorax. Thoracic aorta and great vessels: Multifocal calcified plaques are noted, including coronary arteries. Pulmonary arteries: Unremarkable. Heart and pericardium: Unremarkable cardiac morphology and pericardium. Lymph nodes: No enlarged thoracic lymph nodes. Mediastinum: Unremarkable. Thoracic spine and chest wall: The bones are osteopenic. Mild multilevel spinal osteophytosis and degenerative disc disease are noted. Other Lines/Tubes/Devices/Hardware: A right Port-A-Cath is visualized, with distal tip terminated within the SVC. Visualized upper abdomen: Extensive surgical changes of the stomach are noted. Patient is status post cholecystectomy. A low attenuated hepatic observation measuring 1.8 x 1.2 cm is noted within segment 6, potentially reflecting cyst. IMPRESSION Bilateral lower lung atelectasis with multifocal groundglass opacities. Findings potentially reflecting infectious/inflammatory process. Multiple pulmonary nodules as detailed above. Recommend a 3-6 month follow-up to assess for potential changes. Torey Andrade MD., have reviewed this study and agree with the above report. Performing Organization Address City/State/Zipcode Phone Number PACS/VR/DOSE * Urinalysis (10/18/2018 4:49 PM CDT) APPEARANCE Cloudy (A) Clear [facility] COLOR Ioana (A) Yellow [facility] PH 5.0 4.8 - 8.0 [facility] SP GRAVITY 1.018 1.003 - 1.030 [facility] GLU U QUAL 50 mg/dL (A) Normal [facility] BLOOD NegativeComment: INTERFERENCE Negative [facility] FROM ASCORBIC ACID MAY CAUSE [facility] FALSE NEGATIVE RESULT [facility] KETONES Negative Negative [facility] PROTEIN Negative Negative [facility] UROBILIN Normal Normal [facility] BILIRUBIN Negative Negative [facility] NITRITE Negative Negative [facility] LEUK NICHOLAS 25/uL (A) Negative [facility] RBC/HPF 142 (H) 0 - 3 HPF [facility] WBC/HPF 9 (H) 0 - 5 HPF [facility] BACTERIA Few (A) Negative [facility] MUCOUS Slight (A) Negative LPF [facility] AMORPHOUS Rare Rare HPF [facility] YEAST BUD 8 (H) <=1 HPF [facility] HYAL CAST 8 (H) <=2 LPF [facility] Specimen Urine - URINE, CLEAN CATCH Performing Organization Address City/State/Zipcode Phone Number [facility] CLIA: [id number], [address] [place], [place] [address] [facility] * CBC WITH DIFFERENTIAL (10/18/2018 4:18 PM CDT) WBC 7.05 4.30 - 11.10 [facility] 10*3/L [facility] RBC 4.15 3.93 - 5.25 10*6/L [facility] HGB 12.2 11.6 - 15.0 g/dL [facility] HCT 38.1 35.7 - 45.2 % [facility] MCV 91.8 80.6 - 95.5 fL [facility] MCH 29.4 25.9 - 32.8 pg [facility] MCHC 32.0 31.6 - 35.1 g/dL [facility] RDW-SD 45.5 39.0 - 49.9 fL [facility] RDW-CV 13.3 12.0 - 15.5 % [facility] PLT 241 166 - 358 10*3/L [facility] MPV 9.8 9.5 - 12.9 fL [facility] NRBC/100 WBC 0.0 0.0 - 10.0 /100 WBCs [facility] NRBC x10^3 <0.01 10*3/L [facility] GRAN MAT (NEUT) 32.7 % [facility] % [facility] IMM GRAN % 0.30 % [facility] LYMPH % 52.8 % [facility] MONO % 8.1 % [facility] EOS % 5.5 % [facility] BASO % 0.6 % [facility] GRAN MAT 2.31 1.88 - 7.09 10*3/uL [facility] x10^3(ANC) [facility] IMM GRAN x10^3 <0.03 0.00 - 0.06 10*3/uL [facility] LYMPH x10^3 3.72 (H) 1.32 - 3.29 10*3/uL [facility] MONO x10^3 0.57 0.33 - 0.92 10*3/uL [facility] EOS x10^3 0.39 0.03 - 0.39 10*3/uL [facility] BASO x10^3 0.04 0.01 - 0.07 10*3/uL [facility] Specimen Blood - VENOUS Performing Organization Address City/State/Zipcode Phone Number [facility] CLIA: [id number], [address] [place] [address] [facility] * D-DIMER (10/18/2018 4:18 PM CDT) D-DIMER 0.37 <0.41 g/mL (FEU) [facility] Specimen Blood - VENOUS Narrative Performed At This test may be used in conjunction with a clinical pretest probability (PTP) [facility] assessment model to exclude pulmonary embolism (PE) and as an aid in the [facility] diagnosis of deep venous thrombosis (DVT) in outpatients suspected of PE or DVT. CAMPUS A D-Dimer value less than 0.50 g/ml (FEU) has a negative predicative value of 98 to 100% (95% CI) for the exclusion of pulmonary embolism (PE) and 95 to 100% (95% CI) as an aid in the diagnosis of deep vein thrombosis (DVT) when there is low or moderate pretest probability of PE or DVT. D-Dimer values are expressed in initial fibrinogen equivalent units (FEU). Performing Organization Address City/State/Zipcode Phone Number [facility] CLIA: [id number], [address] [place] [address] [facility] * N-TERMINAL PRO-BNP (10/18/2018 4:18 PM CDT) NT-proBNP 48 <=125 pg/mL [facility] Specimen Blood - VENOUS Narrative Performed At [facility] has been reported to cause a negative bias, interpret results relative to [facility] patient's use of biotin. [facility] Performing Organization Address City/State/Zipcode Phone Number [facility] CLIA: [id number], [address] [place] [address] [facility] * Troponin I (10/18/2018 4:18 PM CDT) TROPONIN I 0.003 <=0.034 ng/mL [facility] Specimen Blood - VENOUS Narrative Performed At Equal or Less than 0.034 ng/ml---Normal [facility] Note: Cardiac troponin begins to rise 3-4 hours after the onset of ischemia. [facility] Repeat in 4-6 hours if the sample was drawn within 3-4 hours of the onset of the CAMPUS symptom and found normal. Between 0.035 and 0.120 ng/mL--- Borderline. Questionable myocardial injury or necrosis Note: Serial measurement may be necessary to confirm or exclude the diagnosis of myocardial injury or necrosis; Clinical correlation (symptoms, EKGs, imaging studies, and others) required; Repeat in 4-6 hours if clinically indicated. Equal or Higher than 0.121 ng/mL---Abnormal. Myocardial Injury or Necrosis Likely Biotin has been reported to cause a negative bias, interpret results relative to patient's use of biotin. Performing Organization Address City/[facility] Phone Number [facility] CLIA: [id number], [address] [place] [address] [facility] * Lipase Serum (10/18/2018 4:18 PM CDT) Pathologist [facility] LIPASE 69 0 - 220 U/L [facility] Specimen Blood - VENOUS Performing Organization Address [facility] Phone Number [facility] CLIA: [id number], [address] [place] [address] [facility] * Hepatic Function Panel (ALB, T.PRO, BILI T, BU/BC, ALT, AST, ALK PHOS) (10/18/2018 4:18 PM CDT) Pathologist [facility] TOTAL BILI 0.3 0.1 - 1.1 mg/dL [facility] BILI UNCON 0.1 0.1 - 1.1 mg/dL [facility] BILI CONJ 0.0 0.0 - 0.3 mg/dL [facility] T PROTEIN 7.4 6.3 - 8.2 g/dL [facility] ALBUMIN 4.3 3.5 - 5.0 g/dL [facility] ALK PHOS 90 34 - 122 U/L [facility] ALT(SGPT) 44 9 - 51 U/L [facility] AST(SGOT) 44 (H) 13 - 40 U/L [facility] Specimen Blood - VENOUS Performing Organization Address City/State/Zipcode Phone Number [facility] CLIA: [id number], [address] [place] [address] [facility] * Basic Metabolic Panel (NA, K, CL, CO2, GLUCOSE, BUN, CREATININE, CA) (10/18/2018 4:18 PM CDT) NA 142 135 - 145 mmol/L [facility] K 3.9 3.5 - 5.0 mmol/L [facility] CL 101 98 - 108 mmol/L [facility] CO2 TOTAL 33 (H) 23 - 31 mmol/L [facility] AGAP 8 2 - 16 [facility] BUN 16 7 - 23 mg/dL [facility] GLUCOSE 79 70 - 110 mg/dL [facility] CREATININE 0.66 0.50 - 1.04 mg/dL [facility] CALCIUM 9.7 8.6 - 10.6 mg/dL [facility] eGFR 90.5 mL/min/1.73m2 [facility] Calculation [facility] (Non-[facility] [place]) eGFR 109.6 mL/min/1.73m2 [facility] Calculation [facility] ([facility] [place]) Specimen Blood - VENOUS Narrative Performed At Association of Glomerular Filtration Rate (GFR) and Staging of Kidney Disease* [facility] + + + + [facility] | GFR (mL/min/1.73 m2)| With Kidney Damage|Without Kidney Damage CAMPUS + + + + |>90|Stage one| Normal + + + + |60-89|Stage two| Decreased GFR + + + + |30-59|Stage three| Stage three + + + + |15-29|Stage four | Stage four + + + + |<15 (or dialysis)|Stage five | Stage five + + + + *Each stage assumes the associated GFR level has been in effect for at least three months.Stages 1 to 5, with or without kidney disease, indicate chronic kidney disease. Notes: Determination of stages one and two (with eGFR >59mL/min/1.73 m2) requires estimation of kidney damage for at least three months as defined by structural or functional abnormalities of the kidney, manifested by either: Pathological abnormalities or Markers of kidney damage (including abnormalities in the composition of the blood or urine or abnormalities in imaging tests). Performing Organization Address City/State/Zipcode Phone Number [facility] CLIA: [id number], [address] [place] [address] [facility] * Chest 2 Views (10/18/2018 3:32 PM CDT) Specimen Impressions Performed At No acute cardiopulmonary abnormality. PACS/VR/DOSE Sandra Andrade MD., have reviewed this study and agree with the above report. Narrative Performed At EXAM: XR CHEST 2 VW PACS/VR/DOSE HISTORY: SOB COMPARISON: None FINDINGS: A right Chemo-Port is in place. The lungs are underinflated. Streaky bibasilar opacities represent subsegmental atelectasis, improved from prior exam. No focal consolidation, pleural effusion or pneumothorax is seen. The cardiac silhouette is normal in size. No acute bony abnormality. Procedure Note [facility], Radiant Results Inft User - 10/18/2018 5:05 PM CDT EXAM: XR CHEST 2 VW HISTORY: SOB COMPARISON: None FINDINGS: A right Chemo-Port is in place. The lungs are underinflated. Streaky bibasilar opacities represent subsegmental atelectasis, improved from prior exam. No focal consolidation, pleural effusion or pneumothorax is seen. The cardiac silhouette is normal in size. No acute bony abnormality. IMPRESSION No acute cardiopulmonary abnormality. Albertina Andrade MD., have reviewed this study and agree with the above report. Performing Organization Address City/State/Zipcode Phone Number PACS/VR/DOSE documented in this encounter Visit Diagnoses Diagnosis SOB (shortness of breath) - Primary Shortness of breath documented in this encounter Administered Medications Action Date Dose Rate Site Medication Order MAR Action 10/19/2018 10:57 PM CDT 1 mg ALPRAZolam (XANAX) tablet 1 mg Given 1 mg, Oral, QHSPRN, Starting Wed10/18/18 at 2154, Until Discontinued, Routine, anxiety 1 mg Given 10/19/2018 12:12 AM CDT 10/20/2018 8:14 AM CDT 2.5 mg amLODIPine (NORVASC) tablet 2.5 mg Given 2.5 mg, Oral, DAILY, First dose on Wed10/20/18 at 0900, Until Discontinued, Routine 10/20/2018 8:22 AM CDT 1 mg anastrozole (ARIMIDEX) tablet 1 mg Given 1 mg, Oral, DAILY, First dose on Wed10/19/18 at 0900, Until Discontinued, Routine 1 mg Given 10/19/2018 8:02 AM CDT 10/20/2018 8:14 AM CDT 60 mg DULoxetine (CYMBALTA) capsule 60 mg Given 60 mg, Oral, DAILY, First dose on Wed10/18/18 at 2215, Until Discontinued, Routine 60 mg Given 10/19/2018 8:10 PM CDT 60 mg Given 10/18/2018 10:13 PM CDT 10/20/2018 8:14 AM CDT 20 mg famotidine (PEPCID AC) tablet 20 mg Given 20 mg, Oral, BID, First dose on Wed10/19/18 at 0800, Until Discontinued, Routine 20 mg Given 10/19/2018 8:10 PM CDT 20 mg Given 10/19/2018 8:02 AM CDT 10/20/2018 3:47 AM CDT 20 mg furosemide (LASIX) injection 20 mg Given 20 mg, Slow IV Push, Q12H, First dose on Wed10/19/18 at 1530, Until Discontinued, Routine 20 mg Given 10/19/2018 3:33 PM CDT 10/20/2018 8:15 AM CDT 800 mg gabapentin (NEURONTIN) capsule 800 mg Given 800 mg, Oral, QID, First dose on Wed10/19/18 at 0800, Until Discontinued, Routine 800 mg Given 10/19/2018 8:09 PM CDT 800 mg Given 10/19/2018 4:55 PM CDT 10/20/2018 8:22 AM CDT 5,000 Units Abdomen-SC heparin injection 5,000 Units Given 5,000 Units, Subcutaneous, Q12H, First dose on Wed10/19/18 at 0800, Until Discontinued, Routine 5,000 Units Abdomen-SC Given 10/19/2018 8:09 PM CDT 5,000 Units Abdomen-SC Given 10/19/2018 8:03 AM CDT 10/20/2018 8:28 AM CDT 1 tablet HYDROcodone-acetaminophen (NORCO 5) Given 5-325 mg tablet 1 tablet 1 tablet, Oral, Q6HPRN, Starting Wed10/18/18 at 2200, Until [place] 10/20/18 at 2159, Routine, Pain (scale 4-6) 1 tablet Given 10/19/2018 2:46 PM CDT 1 tablet Given 10/19/2018 8:11 AM CDT 10/20/2018 4:22 AM CDT 15 mg ketorolac (TORADOL) injection 15 mg Given 15 mg, Slow IV Push, Q6HPRN, 4 doses, Starting Wed10/19/18 at 1528, Until Discontinued, Routine, Pain (scale 7-10), member of congress approving Restricted medication: ANGIE MEJIAS 15 mg Given 10/19/2018 10:41 PM CDT 10/20/2018 8:14 AM CDT 0.25 mg pramipexole (MIRAPEX) tablet 0.25 mg Given 0.25 mg, Oral, DAILY, First dose on Wed10/18/18 at 2215, Until Discontinued, member of congress approving Restricted medication: MARTÍN CHEN 0.25 mg Given 10/19/2018 8:10 PM CDT 0.25 mg Given 10/18/2018 10:13 PM CDT 10/19/2018 9:49 PM CDT 10 mg zolpidem (AMBIEN) tablet 10 mg Given 10 mg, Oral, DAILY, First dose on Wed10/19/18 at 0900, Until Discontinued, Routine Action Date Dose Rate Site Medication Order MAR Action 10/19/2018 8:09 PM CDT 1 Patch lidocaine (LIDODERM) 5 % (700 mg/patch) Applied patch 1 Patch 1 Patch, Topical, Administer over 12 Hours, ONCE, 1 dose, Wed10/19/18 at 1630, Routine 10/19/2018 10:30 AM CDT 5 mL sulfur hexafluoride microsphr (LUMASON) Given injection 5 mL 5 mL, Intravenous, ONCE, 1 dose, Wed10/19/18 at 1330, Routine documented in this encounter Insurance Type Payer Benefit Subscriber ID Effective Phone Address Plan / Dates Group Medicare MEDICARE MEDICARE xxxxxxxxxxx 2008- [phone] [address] Present [id number] [place] [address] Medicaid [facility] MEDICAID xxxxxxxxx 2018- [phone] [address] [place] Present [id number] [place] [address] documented as of this encounter
--- OUTSIDE RECORDS SUMMARY | 2018-11-03 20:56 | XMS REPORT | Summary of Care ---
Author Author [facility] - Health Organization [facility] - Health Address Unknown Phone Unavailable Care Team Providers Care Network Security Architect Name Role Phone China Gore SPOOLER OPERATOR PCP Encounter Details Care Team Description Date Type Department Doctor Unassigned, [place] [address] [place] [address] 10/14/2018 Orders Only [facility] [address] [place] [address] Allergies Comments Active Allergy Reactions Severity Noted [...] as of this encounter (statuses as of 10/14/2018) Medications End Date Status Medication Sig Dispensed [...] as of this encounter (statuses as of 10/14/2018) Active Problems Problem Noted Date Fever 09/13/2018 Neck pain 09/13/2018 Type 2 diabetes mellitus Metastatic breast cancer Depression Chronic pain Anxiety Acute bronchitis documented as of this encounter (statuses as of 10/14/2018) Social History Date Tobacco Use Types Packs/Day [...] Description Date Type Specialty David Osei MD [address] [place] [address] [address] [place] [address] Tte, [facility] Eco 10/26/2018 Appointment Echocardiograph China Gore, SPOOLER OPERATOR [address] [place] [address] 12/08/2018 Office Visit Family Medicine Maria Alejandra Esteban MD [address] [address] 12/12/2018 Office Visit Cardiology Health [...] Comments Procedure Name Priority Date/Time Associated Diagnosis EXTERNAL PROVIDER RECORDS Routine 10/14/2018 12:01 AM CDT documented in this encounter Results Not on filedocumented in this encounter Insurance Type Payer Benefit Subscriber ID Effective Phone Address Plan / Dates Group Medicare MEDICARE MEDICARE xxxxxxxxxxx 2008- [phone] [address] Present [id number] [place] [address] Medicaid [facility] MEDICAID xxxxxxxxx 2018- [phone] [address] [place] Present [id number] [place] [address] documented as of this encounter
--- OUTSIDE RECORDS SUMMARY | 2018-11-03 20:56 | XMS REPORT | Summary of Care ---
Author Author [facility] - Health Organization [facility] - Health Address Unknown Phone Unavailable Care Team Providers Care Aerobics Instructor Name Role Phone China Gore PCP Reason for Referral * Radiology Services (Routine) Referred By Contact Referred To Contact Status Reason Specialty Diagnoses / Procedures China Gore FNP [address] [place] [address] New Request Diagnostic Diagnoses Radiology Acute pain of right knee P rocedures XR KNEE 3 VW RIGHT * Radiology Services (Routine) Referred By Contact Referred To Contact Status Reason Specialty Diagnoses / Procedures China Gore FNP [address] [place] [address] New Request Diagnostic Diagnoses Radiology Acute pain of right knee P rocedures XR KNEE 3 VW RIGHT * Radiology Services (Routine) Referred By Contact Referred To Contact Status Reason Specialty Diagnoses / Procedures China Gore FNP [address] [place] [address] New Request Diagnostic Diagnoses Radiology Acute pain of right shoulder P rocedures XR SHOULDER 2+ VW RIGHT * Radiology Services (Routine) Referred By Contact Referred To Contact Status Reason Specialty Diagnoses / Procedures China Gore FNP [address] [place] [address] New Request Diagnostic Diagnoses Radiology Acute pain of right shoulder P rocedures XR SHOULDER 2+ VW RIGHT Reason for Visit * Radiology Services (Routine) Referred By Contact Referred To Contact Status Reason Specialty Diagnoses / Procedures Sandra Goreica, ANIBAL [address] [place] [address] New Request Diagnostic Diagnoses Radiology Acute pain of right shoulder P rocedures XR SHOULDER 2+ VW RIGHT Encounter Details Care Team Description Date Type Department Sandra GoreANIBAL aguiar [address] [place] [address] Arrived 10/14/2018 [facility] Encounter [place] [facility] [address] [place] [address] Allergies Comments Active Allergy Reactions [...] as of this encounter (statuses as of 10/15/2018) Medications End Date Status Medication Sig Dispensed [...] as of this encounter (statuses as of 10/15/2018) Active Problems Problem Noted Date Fever 09/13/2018 Neck pain 09/13/2018 Type 2 diabetes mellitus Metastatic breast cancer Depression Chronic pain Anxiety Acute bronchitis documented as of this encounter (statuses as of 10/15/2018) Social History Date Tobacco Use Types Packs/Day [...] Description Date Type Specialty David Osei MD [address] [place] [address] [address] [place] [address] Tte, [facility] Eco 10/26/2018 Appointment Echocardiograph Madeleine Banks, ACNP [address] [facility] [address] [place] [address] [phone] 11/09/2018 Office Visit Gastroenterology China Gore, UNIT DIRECTOR [address] [place] [address] 12/08/2018 Office Visit Family Medicine Maria Alejandra Esteban MD [address] [address] 12/12/2018 Office Visit Cardiology Health [...] Comments Procedure Name Priority Date/Time Associated Diagnosis XR SHOULDER 2+ VW RIGHT Routine 10/14/2018 Acute pain of right 3:54 PM CDT shoulder XR KNEE 3 VW RIGHT Routine 10/14/2018 Acute pain of right knee 3:54 PM CDT documented in this encounter Results * XR KNEE 3 VW RIGHT (10/14/2018 3:54 PM CDT) Specimen Impressions Performed At Mild knee osteoarthrosis. PACS/VR/DOSE No acute osseous abnormality. Narrative Performed At EXAM: XR KNEE 3 VW RIGHT PACS/VR/DOSE HISTORY: 63 years-old Female knee pain after fall COMPARISON: None. FINDINGS: Mild predominantly medial compartment joint space narrowing, subchondral sclerosis, and osteophytosis. No acute fracture or dislocation is present. Patellofemoral marginal osteophytes are noted. Tibial spine hypertrophy is present. Trace suprapatellar effusions is identified.No soft tissue abnormality is noted. Procedure Note [facility], Radiant Results Inft User - 10/14/2018 3:56 PM CDT EXAM: XR KNEE 3 VW RIGHT HISTORY: 63 years-old Female knee pain after fall COMPARISON: None. FINDINGS: Mild predominantly medial compartment joint space narrowing, subchondral sclerosis, and osteophytosis. No acute fracture or dislocation is present. Patellofemoral marginal osteophytes are noted. Tibial spine hypertrophy is present. Trace suprapatellar effusions is identified. No soft tissue abnormality is noted. IMPRESSION Mild knee osteoarthrosis. No acute osseous abnormality. Performing Organization Address City/State/Zipcode Phone Number PACS/VR/DOSE * XR SHOULDER 2+ VW RIGHT (10/14/2018 3:54 PM CDT) Specimen Impressions Performed At No acute osseous abnormality. PACS/VR/DOSE Mild to moderate osteoarthrosis of the acromioclavicular and glenohumeral joints. Narrative Performed At EXAM: PACS/VR/DOSE XR SHOULDER 2+ VW RIGHT HISTORY: 63 yearsFemale shoulder pain after fall COMPARISON: None FINDINGS: No acute fracture or dislocation is present. The acromioclavicular and glenohumeral joints alignment is maintained. A chemotherapy port projects over the right chest wall Mild to moderate osteoarthritic changes affect the acromioclavicular joint in the form of joint space narrowing, subchondral sclerosis and marginal osteophytosis. Milder changes affect the glenohumeral joint. Procedure Note [facility], Radiant Results Inft User - 10/14/2018 3:58 PM CDT EXAM: XR SHOULDER 2+ VW RIGHT HISTORY: 63 yearsFemale shoulder pain after fall COMPARISON: None FINDINGS: No acute fracture or dislocation is present. The acromioclavicular and glenohumeral joints alignment is maintained. A chemotherapy port projects over the right chest wall Mild to moderate osteoarthritic changes affect the acromioclavicular joint in the form of joint space narrowing, subchondral sclerosis and marginal osteophytosis. Milder changes affect the glenohumeral joint. IMPRESSION No acute osseous abnormality. Mild to moderate osteoarthrosis of the acromioclavicular and glenohumeral joints. Performing Organization Address City/State/Zipcode Phone Number PACS/VR/DOSE documented in this encounter Visit Diagnoses Diagnosis Acute pain of right shoulder Acute pain of right knee documented in this encounter Insurance Type Payer Benefit Subscriber ID Effective Phone Address Plan / Dates Group Medicare MEDICARE MEDICARE xxxxxxxxxxx 2008- [phone] [address] Present [id number] [place] [address] Medicaid [facility] MEDICAID xxxxxxxxx 2018- [phone] [address] [place] Present [id number] [place] [address] documented as of this encounter
--- OUTSIDE RECORDS SUMMARY | 2018-11-03 20:56 | XMS REPORT | Summary of Care ---
Author Author [facility] - Health Organization [facility] - Health Address Unknown Phone Unavailable Care Team Providers Care Hotel Staff Member Name Role Phone China Gore CHIEF INFORMATICS OFFICER PCP Reason for Visit * Reason Comments DME Encounter Details Care Team Description Date Type Department China Gore FNP [address] [place] [address] DME 10/17/2018 Telephone [facility] [address] [address] Allergies Comments Active Allergy Reactions [...] Date Type Specialty David Osei MD [address] [place] [address] [address] [place] [address] Tte, [facility] Eco 10/26/2018 Appointment Echocardiograph Madeleine Banks, [facility] [address] [facility] [address] [place] [address] [phone] 11/09/2018 Office Visit Gastroenterology China Gore, CHIEF INFORMATICS OFFICER [address] [place] [address] 12/08/2018 Office Visit Family Medicine Maria Alejandra Esteban MD [address] [place] [phone] 12/12/2018 Office Visit Cardiology Health Maintenance Due [...] Dates Group Medicare MEDICARE MEDICARE xxxxxxxxxxx 2008- [phone] [address] Present [id number] [place] [address] Medicaid [facility] MEDICAID xxxxxxxxx 2018- [phone] [address] [place] Present [id number] [place] [address] documented as of this encounter
--- OUTSIDE RECORDS SUMMARY | 2018-11-03 20:56 | XMS REPORT | Summary of Care ---
Author Author [facility] - Health Organization [facility] - Health Address Unknown Phone Unavailable Care Team Providers Care Care Mgr Name Role Phone China Gore FRUIT RAISER PCP Encounter Details Care Team Description Date Type Department Doctor Unassigned, [place] [address] [place] [address] 10/13/2018 Orders Only [facility] [address] [place] [address] Allergies Comments Active Allergy Reactions Severity Noted [...] as of this encounter (statuses as of 10/19/2018) Medications End Date Status Medication Sig Dispensed Refills Start Date Suspended calcium carbonate 500 mg Take 1 tablet 0 calcium (1,250 mg) tablet by mouth daily. Suspended HYDROcodone-acetaminophen Take 1 tablet 0 10-325 mg tablet by mouth 8 every 6 (six) hours as needed. Suspended Magnesium Oxide 250 mg Take 250 mg 0 Tab by mouth daily. Suspended zolpidem 10 mg tablet Take 1 tablet 2 by mouth 8 daily. Suspended ALPRAZolam 1 mg tablet Take 1 tablet 90 tablet 0 by mouth at 8 bedtime as needed (anxiety). Suspended anastrozole 1 mg tablet Take 1 tablet 90 tablet 0 by mouth 8 daily. Suspended triamcinolone 0.025 % Apply to 15 g 1 cream area(s) 2 8 (two) times daily. Suspended ROPINIROLE 0.25 mg tablet TAKE ONE (1) 90 tablet 0 TABLET(S) BY 9 MOUTH ONCE A DAY. 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 Suspended cyanocobalamin 1,000 1 mL by 1 mL 5 mcg/mL Intramuscular 9 injectionIndications: route once Vitamin B deficiency every month. Suspended gabapentin 800 mg Take 1 tablet 270 tablet 1 tabletIndications: by mouth 3 9 Neuropathy (three) times daily. Suspended pregabalin 150 mg Take 1 180 capsule 1 capsuleIndications: capsule by 9 Neuropathy mouth 2 (two) times daily. Suspended diphenhydrAMINE 25 mg Take 1 tablet 24 tablet 0 tabletIndications: Fever, by mouth 9 unspecified fever cause, every 4 Chest wall pain, Right (four) hours shoulder pain, as needed for unspecified chronicity, Itching or Metastatic breast cancer, Allergies. Neck pain, Depression, unspecified depression type, Anxiety Suspended cephALEXin (KEFLEX) 250 Take 250 mg 0 mg capsule by mouth 3 (three) times daily. documented as of this encounter (statuses as of 10/19/2018) Active Problems Problem Noted Date SOB (shortness of breath) 10/18/2018 Fever 09/13/2018 Neck pain 09/13/2018 Type 2 diabetes mellitus Metastatic breast cancer Depression Chronic pain Anxiety Acute bronchitis documented as of this encounter (statuses as of 10/19/2018) Social History Date Tobacco Use Types Packs/Day [...] Team Description Date Type Specialty Madeleine Banks, [facility] [address] [facility] [address] [place] [address] [phone] 11/09/2018 Office Visit Gastroenterology China Gore, FRUIT RAISER [address] [place] [address] 12/08/2018 Office Visit Family Medicine Maria Alejandra Esteban MD [address] [address] 12/12/2018 Office Visit Cardiology Health [...] 09/08/2019 09/07/2018 MAMMOGRAM 09/24/2019 09/23/2018 CREATININE (SERUM) 10/19/2019 10/18/2018, 09/26/2018, 09/14/2018, Additional history exists HEPATITIS C (HCV) SCREEN Completed 09/07/2018 documented as of this encounter Procedures Comments Procedure Name Priority Date/Time Associated Diagnosis DME/SUPPLY JUSTIFICATION Routine 10/13/2018 12:01 AM CDT documented in this encounter Results Not on filedocumented in this encounter Insurance Type Payer Benefit Subscriber ID Effective Phone Address Plan / Dates Group Medicare MEDICARE MEDICARE xxxxxxxxxxx 2008- [phone] [address] Present [id number] [place] [id number] Medicaid [facility] MEDICAID xxxxxxxxx 2018- [phone] [address] [place] Present [id number] [place] [address] documented as of this encounter
--- OUTSIDE RECORDS SUMMARY | 2018-11-03 20:57 | XMS REPORT | Summary of Care ---
Author Author [facility] - Health Organization [facility] - Health Address Unknown Phone Unavailable Care Team Providers Care Concrete Form Setter Name Role Phone China Gore COLD ROLL OPERATOR PCP Reason for Visit * Reason Comments LAB Encounter Details Care Team Description Date Type Department China Gore FNP [address] [place] [address] Vtc-Lab Congestive heart failure, unspecified HF chronicity, unspecified heart failure type 10/27/2018 Production Operations Inspector [facility] Visit [facility] [place] [address] Allergies Comments Active Allergy Reactions Severity Noted Date Umair Inhibitors Shortness of High 05/11/2015 Breath, Other - See comments Adhesive Tape-Silicones Other - See 05/11/2015 comments Cephalexin keflex: Respiratory distress Cephalexin Anaphylaxis High 03/21/2015 Closed throat Ciprofloxacin Anaphylaxis High 03/21/2015 Distress Breathing Codeine Other - See 04/19/2015 comments Respiratory distress Codeine Sulfate Anaphylaxis High 03/21/2015 Respiratory distress// / No iv contrast, oral barium Iodinated Contrast- [...] as of this encounter (statuses as of 10/27/2018) Medications End Date Status Medication Sig Dispensed [...] by mouth 9 (shortness of breath) daily. 11/23/2018 Active potassium chloride 10 mEq Take 1 tablet 30 tablet 0 CR tabletIndications: by mouth 9 Congestive heart failure, daily for 30 unspecified HF days. chronicity, unspecified heart failure type documented as of this encounter (statuses as of 10/27/2018) Active Problems Problem Noted Date SOB (shortness of breath) 10/18/2018 Fever 09/13/2018 Neck pain 09/13/2018 Type 2 diabetes mellitus Metastatic breast cancer Depression Chronic pain Anxiety Acute bronchitis documented as of this encounter (statuses as of 10/27/2018) Social History Date Tobacco Use Types Packs/Day [...] Team Description Date Type Specialty Madeleine Banks, CESIAP [address] [facility] [address] [place] [address] [phone] 11/09/2018 Office Visit Gastroenterology China Gore, ANIBAL [address] [place] [address] 12/08/2018 Office Visit Family Medicine Maria Alejandra Esteban MD [address] [place] [phone] 12/12/2018 Office Visit Cardiology China Gore, COLD ROLL OPERATOR [address] [place] [address] 02/23/2019 Appointment Radiology Date/Time Name Type Priority Associated Diagnoses 10/27/2018 11:00 AM CDT COMP. METABOLIC PANEL LAB Routine Congestive heart failure, (03467) unspecified HF chronicity, unspecified heart failure type Health Maintenance Due Date Last Done Comments PNEUMOCOCCAL 0-64 YEARS 1961 COMBINED SERIES (1 of 3 - PCV13) URINE MICROALBUMIN 1965 FOOT EXAM 1973 DTaP,Tdap,and Td Vaccines 1974 (1 - Tdap) PAP SMEAR 1976 COLONOSCOPY 2005 Zoster Recombinant 2005 Vaccine (SHINGRIX) (1 of 2) EYE EXAM 07/19/2018 07/19/2017 INFLUENZA VACCINE (#1) 2018 HgA1C 03/09/2019 09/07/2018 LDL-C 09/08/2019 09/07/2018 MAMMOGRAM 09/24/2019 09/23/2018 CREATININE (SERUM) 10/21/2019 10/20/2018, 10/19/2018, 10/18/2018, Additional history exists HEPATITIS C (HCV) SCREEN Completed 09/07/2018 documented as of this encounter Results Not on filedocumented in this encounter Visit Diagnoses Diagnosis Congestive heart failure, unspecified HF chronicity, unspecified heart failure type documented in this encounter Insurance Type Payer Benefit Subscriber ID Effective Phone Address Plan / Dates Group Medicare MEDICARE MEDICARE xxxxxxxxxxx 2008- [phone] Present [id number] [place] [address] Medicaid [facility] MEDICAID xxxxxxxxx 2018- [phone] [address] [place] Present [address] [place] [address] documented as of this encounter
--- OUTSIDE RECORDS SUMMARY | 2018-11-03 20:57 | XMS REPORT | Summary of Care ---
Author Author [facility] - Health Organization [facility] - Health Address Unknown Phone Unavailable Care Team Providers Care Machine Shop Repair Technician Name Role Phone China Gore SUGAR CANE PLANTING EQUIPMENT OPERATOR PCP Reason for Visit * Reason Comments Transition Of Care Encounter Details Care Team Description Date Type Department Arianna Godfrey, RN [phone] Transition Of Care 10/21/2018 Transition of [facility] Allergies Comments Active Allergy Reactions Severity Noted [...] as of this encounter (statuses as of 10/21/2018) Medications End Date Status Medication Sig Dispensed [...] by mouth 9 (shortness of breath) daily. documented as of this encounter (statuses as of 10/21/2018) Active Problems Problem Noted Date SOB (shortness of breath) 10/18/2018 Fever 09/13/2018 Neck pain 09/13/2018 Type 2 diabetes mellitus Metastatic breast cancer Depression Chronic pain Anxiety Acute bronchitis documented as of this encounter (statuses as of 10/21/2018) Social History Date Tobacco Use Types Packs/Day [...] Description Date Type Specialty China Gore FNP [address] [place] [address] 10/24/2018 Office Visit Family Medicine China Gore FNP [address] [place] [phone] 10/27/2018 Office Visit Family Medicine Madeleine Banks ACNP [address] [facility] [address] [place] [address] 11/09/2018 Office Visit Gastroenterology China Gore FNP [address] [place] [phone] 12/08/2018 Office Visit Family Medicine Maria Alejandra Esteban MD [address] [place] [phone] 12/12/2018 Office Visit Cardiology Health Maintenance Due [...] Dates Group Medicare MEDICARE MEDICARE xxxxxxxxxxx 2008- [phone] Present [id number] [place] [address] Medicaid [place] MED[place]ID xxxxxxxxx 2018- [phone] [address] [place] [address] [place] [address] documented as of this encounter
--- OUTSIDE RECORDS SUMMARY | 2018-11-03 20:57 | XMS REPORT | Summary of Care ---
Author Author [facility] - Health Organization [facility] - Health Address Unknown Phone Unavailable Care Team Providers Care Testing Shaking Shipping Name Role Phone China Gore BINDING MACHINE OPERATOR PCP Reason for Visit * Reason Comments Transition Of Care Encounter Details Care Team Description Date Type Department Arianna Godfrey, RN [phone] Transition Of Care 10/21/2018 Transition of [facility] [place] Allergies Comments Active Allergy Reactions Severity Noted [...] Description Date Type Specialty China Gore FNP [address] [place] [address] 10/24/2018 Office Visit Family Medicine China Gore FNP [address] [place] [phone] 10/27/2018 Office Visit Family Medicine Madeleine Banks ACNP [address] [facility] [address] [place] [address] 11/09/2018 Office Visit Gastroenterology China Gore FNP [address] [place] [phone] 12/08/2018 Office Visit Family Medicine Maria Alejandra Esteban MD [address] [place] [phone] 12/12/2018 Office Visit Cardiology Health Maintenance Due [...] Dates Group Medicare MEDICARE MEDICARE xxxxxxxxxxx 2008- [phone] [address] Present [id number] [place] [id number] Medicaid [place] MED[place] xxxxxxxxx 2018- [phone] [address] [place] Present [id number] [place] [address] documented as of this encounter
--- OUTSIDE RECORDS SUMMARY | 2018-11-03 20:57 | XMS REPORT | Summary of Care ---
Author Author [facility] - Health Organization [facility] - Health Address Unknown Phone Unavailable Care Team Providers Care Spooler Name Role Phone Suzanne James PCP Reason for Referral * MRI/CAT Scan (Routine) Referred By Contact Referred To Contact Status Reason Specialty Diagnoses / Procedures Suzanne James FNP [address] [place] [address] New Request Diagnostic Diagnoses Radiology Pulmonary nodules P rocedures CT THORAX WO CONTRAST Reason for Visit * Reason Comments Hospital F/U Shortness of Breath * (Routine) Referred By Contact Referred To Contact Status Reason Specialty Diagnoses / Procedures Graciela Gannon FNP [address] [place] [address] Suzanne James FNP [address] [place] [address] New Request Diagnoses SOB (shortness of breath) P rocedures Discharge Follow-up: PCP SUZANNE JAMES; 1 Week Encounter Details Care Team Description Date Type Department Suzanne James FNP [address] [place] [address] Congestive heart failure, unspecified HF chronicity, unspecified heart failure type (Primary Dx); Pulmonary nodules 10/24/2018 Office [facility] [address] [phone] Allergies Comments Active Allergy Reactions Severity Noted [...] as of this encounter (statuses as of 10/24/2018) Medications End Date Status Medication Sig Dispensed [...] as of this encounter (statuses as of 10/24/2018) Active Problems Problem Noted Date SOB (shortness of breath) 10/18/2018 Fever 09/13/2018 Neck pain 09/13/2018 Type 2 diabetes mellitus Metastatic breast cancer Depression Chronic pain Anxiety Acute bronchitis documented as of this encounter (statuses as of 10/24/2018) Social History Date Tobacco Use Types Packs/Day [...] Signs Reading Time Taken Comments Vital Sign 130/78 10/24/2018 8:40 AM CDT Blood Pressure 88 10/24/2018 8:40 AM CDT Pulse - - Temperature - - Respiratory Rate 98% 10/24/2018 8:40 AM CDT Oxygen Saturation - - Inhaled Oxygen Concentration 71.5 kg (157 lb 11.2 oz) 10/24/2018 8:40 AM CDT Weight - - Height 24.7 10/18/2018 9:32 PM CDT Body Mass Index documented in this encounter Patient Instructions * Patient Instructions* Suzanne James FNP - 10/24/2018 8:40 AM CDT Eating Heart-Healthy Foods Eating has a big impact on your heart health. In fact, eating healthier can impr ove several of your heart risks at once. For instance, it helps you manage weigh t, cholesterol, and blood pressure. Here are ideas to help you make heart-health y changes without giving up allthe foods and flavors you love. Getting started Talk with your healthcare provider about eating plans, such as the DASH or Me diterranean diet. You may also be referred to a dietitian. Change a few things at a time. Give yourself time to get used to a few eating changes before adding more. Work to create a tasty, healthy eating plan that you can stick to for the res t of your life. Goals for healthy eating Below are some tips to improve your eating habits: Limit saturated fats and trans fats. Saturated fats raise your levels of chol esterol, so keep these fats to a minimum. They are found in foods such as fatty meats, whole milk, cheese, and palm and coconut oils. Avoid trans fats because t hey lower good cholesterol as well as raise bad cholesterol. Trans fats are most often found in processed foods. Reduce sodium (salt) intake. Eating too much salt may increase your blood pre ssure. Limit your sodium intake to 2,300 milligrams (mg) per day(the amount in 1 teaspoon of salt), or less if your healthcare provider recommends it. Dining out less often and eating fewer processed foods are two great ways to decrease t he amount of salt you consume. Managing calories. A calorie is a unit of energy. Your body parada calories fo r fuel, but if you eat more calories than your body parada, the extras are stored as fat. Your healthcare provider can help you create a diet plan to manage your calories. This will likely include eating healthier foods as well as exercising regularly. To help you track your progress, keep a diary to record what you eat and how often you exercise. Choose the right foods Aim to make these foods dionne of your diet. If you have diabetes, you may have different recommendations than what is listed here: Fruits and vegetables provide plenty of nutrients without a lot of calories. At meals, fill half your plate with these foods. Split the other half of your pl ate between whole grains and lean protein. Whole grains are high in fiber and rich in vitamins and nutrients. Good choi es include whole-wheat bread, pasta, and brown rice. Lean proteins give you nutrition with less fat. Good choices include fish, sk inless chicken, and beans. Low-fat or nonfat dairy provides nutrients without a lot of fat. Try low-fat or nonfat milk, cheese, or yogurt. Healthy fats can be good for you in small amounts. These are unsaturated fats , such as olive oil, nuts, and fish. Try to have at least 2 servings per week of fatty fish, such as salmon, sardines, mackerel, rainbow trout, and albacore radha a. These contain omega-3 fatty acids, which are good for your heart. Flaxseed is another source of a heart-healthy fat. More on heart-healthy eating Read food labels Healthy eating starts at the grocery store. Be sure to pay attention to food lab els on packaged foods. Look for products that are high in fiber and protein, and low in saturated fat, cholesterol, and sodium. Avoid products that contain trans fat. And pay close attention to serving size. For instance, if you plan to eat two servings, double all the numbers on the label. Prepare food right A clark part of healthy cooking is cutting down on added fat and salt. Look on the internet for lower-fat, lower-sodium recipes. Also, try these tips: Remove fat from meat and skin from poultry before cooking. Skim fat from the surface of soups and sauces. Broil, boil, bake, steam, grill, and microwave food without added fats. Choose ingredients that spice up your food without adding calories, fat, or s odium. Try these items: horseradish, hot sauce, lemon, mustard, nonfat salad cuba ssings, and vinegar. For salt-free herbs and spices, try basil, cilantro, cinnam on, pepper, and whitney. Date Last Reviewed: 12/13/201619993038-8774 [employer] [place] [address] 7. All rights reserved. This information is not intended as a substitute for pro fessional medical care. Always follow your healthcare professional's instruction s. Low-Salt Choices Eating salt(sodium)can make your body retain too much water. Excess water ma kes your heart work harder. Canned, packaged, and frozen foods are easy to prepa re. But they are often high in sodium. Here are some ideas for low-salt foods yo u can easily make yourself. For breakfast Fruit or 100% fruit juice Whole-wheat bread or an Samoan muffin. Look for sodium content on Nutrition Facts labels. Low-fat milk or yogurt Unsalted eggs Shredded wheat Empire tortillas Unsalted steamed rice Regular (not instant) hot cereal, made without salt Stay away from: Sausage, to, and ham Flour tortillas Packaged muffins, pancakes, and biscuits Instant hot cereals Cottage cheese For lunch and dinner Fresh fish, chicken, turkey, or meatbaked, broiled, or roasted without julia t Dry beans, cooked without salt Tofu, stir-fried without salt Unsalted fresh fruit and vegetables, or frozen or canned fruit and vegetables with no added salt Stay away from: Lunch or deli meat that is cured or smoked Cheese Tomato juice and ketchup Canned vegetables, soups, and fish not labeled as [id number] or reduced so dium Packaged gravies and sauces Olives, pickles, and relish Bottled salad dressings For snacks and desserts Yogurt Unsalted, air-popped popcorn Unsalted nuts or seeds Stay away from: Pies and cakes Packaged dessert mixes Pizza Canned and packaged puddings Pretzels, chips, crackers, and nutsunless the label says unsalted Date Last Reviewed: 08/13/201619994217-0432 [employer] [place] [address] 7. All rights reserved. This information is not intended as a substitute for pro fessional medical care. Always follow your healthcare professional's instruction s. documented in this encounter Progress Notes * Suzanne James FNP - 10/24/2018 8:40 AM CDT Cc: Chief Complaint Patient presents with Hospital F/U Shortness of Breath Jennifer Kuhn is a 63 year old female. Patient here for the following condition: Hospital follow up, shortness of breat h Location: chest Duration: 1 week Severity: no pain now Context: Patient went to ER for shortness of breath. She was admitted and found to be in heart failure. She was given lasix with improvement. She was discharged on oral lasix and instructed to follow up with Oncology outpatient to discuss p ort a cath. Quality: improved Modifying factors: lasix Associated symptoms: shortness of breath, chest wall pain Timing: am=pm Patient was brought by self. [...] Prior to Visit Medication Sig Dispense Refill amLODIPine 2.5 mg tablet Take 1 tablet by mouth daily. 30 tablet 1 furosemide 40 mg tablet Take 1 tablet by mouth daily. 30 tablet 0 HYDROcodone-acetaminophen 5-325 mg tablet Take 1 tablet by mouth every 6 (si x) hours as needed for Pain (scale 4-6). 20 tablet 0 diphenhydrAMINE 25 mg tablet Take 1 tablet [...] file Gets together: Not on file Attends oriental orthodox service: Not on file Active member of [...] Negative for photophobia, pain and redness. Respiratory: Positive for shortness of breath. Negative for cough, chest tightne ss and wheezing. Cardiovascular: Negative for chest pain, palpitations and leg swelling. Gastrointestinal: Negative for abdominal pain, constipation, nausea and vomiting . Genitourinary: Negative for dysuria, urgency, polyuria, frequency, flank pain, v aginal pain and pelvic pain. Musculoskeletal: Negative for arthralgias, back pain, gait problem, joint swelli ng, myalgias, neck pain and neck stiffness. Skin: Negative for color change, pallor and rash. Neurological: Negative for dizziness, speech difficulty, weakness, light-headedn ess, numbness and headaches. Psychiatric/Behavioral: Negative for confusion and sleep disturbance. The patien t is not nervous/anxious. All other systems reviewed and are negative. Hematological: Negative for adenopathy. Does not bruise/bleed easily. Endocrine: Negative for hair loss, polydipsia, polyphagia and polyuria. Vital Signs BP 130/78 (BP Location: Right arm, Patient Position: Sitting) | Pulse 88 | Wt 157 lb 11.2 oz (71.5 kg) | SpO2 98% | BMI 24.70 kg/m Physical Exam Constitutional: She is oriented [...] Nursing note and vitals reviewed. Assessment/Plan 1. Congestive heart failure, unspecified HF chronicity, unspecified heart failur e type (primary encounter diagnosis) Plan: potassium chloride 10 mEq CR tablet, COMP. METABOLIC PANEL (02563) Start Lasix and Potassium Check Potassium this week Follow up with Cardiology 2. Pulmonary nodules Plan: CT THORAX WO CONTRAST Repeat testing in 3-6 months to monitor pulmonary nodules Plan of care, desired health behaviors, goals and medications discussed with alejandra mortensen and educational resources and self-management tools provided. [...] plan. AVS printed and given to patient/family/guardian Suzanne James RN, BSN, BEEF CATTLE SPECIALIST [facility] [address] [facility] Office: [phone] documented in this encounter Plan of Treatment Care Team Description Date Type Specialty Vtc-Lab 10/27/2018 Process Chemist Phlebotomy [facility] Banks[facility] [address] [facility] [address] [place] [address] [phone] 11/09/2018 Office Visit Gastroenterology Suzanne James FNP [address] [place] [address] 12/08/2018 Office Visit Family Medicine Maria Alejandra Esteban MD [address] [address] 12/12/2018 Office Visit Cardiology Suzanne James FNP [address] [place] [address] 02/23/2019 Appointment Radiology Order Schedule Name Type Priority Associated Diagnoses Expected: 10/24/2018, Expires: 11/24/2018 COMP. METABOLIC PANEL LAB Routine Congestive heart failure, (81837) unspecified HF chronicity, unspecified heart failure type Expected: 01/24/2019, Expires: 04/26/2019 CT THORAX WO CONTRAST IMAGING Routine Pulmonary nodules Health Maintenance Due Date Last Done Comments [...] unspecified HF chronicity, unspecified heart failure type - Primary Pulmonary nodules Other nonspecific abnormal finding of lung field documented in this encounter Insurance Type Payer Benefit Subscriber ID Effective Phone Address Plan / Dates Group Medicare MEDICARE MEDICARE xxxxxxxxxxx 2008- [phone] [address] Present [id number] [place] [id number] Medicaid [place] MED[place]ID xxxxxxxxx 2018- [phone] [address] [place] Present [id number] [place] [address] documented as of this encounter"
--- OUTSIDE RECORDS SUMMARY | 2018-11-03 20:57 | XMS REPORT | Summary of Care ---
Author Author [facility] - Health Organization [facility] - Health Address Unknown Phone Unavailable Care Team Providers Care Wash Helper Name Role Phone Suzanne James PCP Reason for Referral * MRI/CAT Scan (Routine) Referred By Contact Referred To Contact Status Reason Specialty Diagnoses / Procedures Suzanne James FNP [address] [place] [address] New Request Diagnostic Diagnoses Radiology Pulmonary nodules P rocedures CT THORAX WO CONTRAST Reason for Visit * Reason Comments Hospital F/U Shortness of Breath * (Routine) Referred By Contact Referred To Contact Status Reason Specialty Diagnoses / Procedures Graciela Gannon FNP [address] [place] [address] Suzanne James FNP [address] [place] [address] New Request Diagnoses SOB (shortness of breath) P rocedures Discharge Follow-up: PCP SUZANNE JAMES; 1 Week Encounter Details Care Team Description Date Type Department Suzanne James FNP [address] [place] [address] Congestive heart failure, unspecified HF chronicity, unspecified heart failure type (Primary Dx); Pulmonary nodules 10/24/2018 Office Visit [facility] [address] [phone] Allergies Comments Active Allergy Reactions Severity Noted [...] on, pepper, and whitney. Date Last Reviewed: 12/13/201619997713-[address] [employer] [place] [address] 7. All rights reserved. This information is [...] 100% fruit juice Whole-wheat bread or an Bahraini muffin. Look for sodium content on Nutrition Facts labels. Low-fat milk or yogurt Unsalted eggs Shredded wheat [place] tortillas Unsalted steamed rice Regular (not instant) [...] vegetables, soups, and fish not labeled as [id number] or reduced so dium Packaged gravies and sauces Olives, pickles, and relish Bottled salad dressings For snacks and desserts Yogurt Unsalted, air-popped popcorn Unsalted nuts or seeds Stay away from: Pies and cakes Packaged dessert mixes Pizza Canned and packaged puddings Pretzels, chips, crackers, and nutsunless the label says unsalted Date Last Reviewed: 08/13/201619999378-[address] [employer] [place] [address] 7. All rights reserved. This information is [...] file Gets together: Not on file Attends protestant service: Not on file Active member of [...] 10 mEq CR tablet, COMP. METABOLIC PANEL (18856) Start Lasix and Potassium Check Potassium this [...] given to patient/family/guardian Suzanne James RN, BSN, BORDER INSPECTOR [facility] [address] [facility] Office: [phone] documented in this encounter Plan of Treatment Care Team Description Date Type Specialty Vtc-Lab 10/27/2018 Caul Dresser Phlebotomy [facility] Madeleine Banks, [facility] [address] [facility] [address] [place] [address] [phone] 11/09/2018 Office Visit Gastroenterology Suzanne James FNP [address] [place] [address] 12/08/2018 Office Visit Family Medicine Maria Alejandra Esteban MD [address] [address] 12/12/2018 Office Visit Cardiology Suzanne James FNP [address] [place] [address] 02/23/2019 Appointment Radiology Order Schedule Name Type Priority Associated Diagnoses Expected: 10/24/2018, Expires: 11/24/2018 COMP. METABOLIC PANEL LAB Routine Congestive heart failure, (84458) unspecified HF chronicity, unspecified heart failure type [...] Dates Group Medicare MEDICARE MEDICARE xxxxxxxxxxx 2008- [phone] [address] Present [id number] [place] [address] Medicaid [place] MED[place]ID xxxxxxxxx 2018- [phone] [address] [place] Present [id number] [place] [address] documented as of this encounter"
--- OUTSIDE RECORDS SUMMARY | 2018-11-03 20:57 | XMS REPORT | Summary of Care ---
Author Author [facility] - Health Organization [facility] - Health Address Unknown Phone Unavailable Care Team Providers Care Outboard Motor Tester Name Role Phone [employer] STORE OPERATIONS SPECIALIST PCP Reason for Visit * Reason Comments LAB Encounter Details Care Team Description Date Type Department China Gore FNP [address] [place] [address] Vtc-Lab Congestive heart failure, unspecified HF chronicity, unspecified heart failure type 10/27/2018 Promotional Marketing Agent [facility] Visit [facility] [place] [address] Allergies Comments Active Allergy Reactions [...] as of this encounter (statuses as of 10/28/2018) Medications End Date Status Medication Sig Dispensed [...] as of this encounter (statuses as of 10/28/2018) Active Problems Problem Noted Date SOB (shortness of breath) 10/18/2018 Fever 09/13/2018 Neck pain 09/13/2018 Type 2 diabetes mellitus Metastatic breast cancer Depression Chronic pain Anxiety Acute bronchitis documented as of this encounter (statuses as of 10/28/2018) Social History Date Tobacco Use Types Packs/Day [...] Description Date Type Specialty Madeleine Banks, CESIAP [address] [facility] [address] [place] [address] [phone] 11/09/2018 Office Visit Gastroenterology China Gore, ANIBAL [address] [place] [address] 12/08/2018 Office Visit Family Medicine Maria Alejandra Esteban MD [address] [place] [address] [place] [phone] 12/12/2018 Office Visit Cardiology China Gore, STORE OPERATIONS SPECIALIST [address] [place] [address] 02/23/2019 Appointment Radiology Health Maintenance Due Date Last Done Comments PNEUMOCOCCAL 0-64 YEARS 1961 COMBINED SERIES (1 of 3 - PCV13) URINE MICROALBUMIN 1965 FOOT EXAM 1973 DTaP,Tdap,and Td Vaccines 1974 (1 - Tdap) PAP SMEAR 1976 COLONOSCOPY 2005 Zoster Recombinant 2005 Vaccine (SHINGRIX) (1 of 2) EYE EXAM 07/19/2018 07/19/2017 INFLUENZA VACCINE (#1) 2018 HgA1C 03/09/2019 09/07/2018 LDL-C 09/08/2019 09/07/2018 MAMMOGRAM 09/24/2019 09/23/2018 CREATININE (SERUM) 10/28/2019 10/27/2018, 10/20/2018, 10/19/2018, Additional history exists HEPATITIS C (HCV) SCREEN Completed 09/07/2018 documented as of this encounter Procedures Comments Procedure Name Priority Date/Time Associated Diagnosis COMP. METABOLIC PANEL Routine 10/27/2018 Congestive heart failure, (29733) 11:00 AM CDT unspecified HF chronicity, unspecified heart failure type documented in this encounter Results * COMP. METABOLIC PANEL (74447) (10/27/2018 11:00 AM CDT) NA 141 135 - 145 mmol/L [facility] K 4.2 3.5 - 5.0 mmol/L [facility] CL 99 98 - 108 mmol/L [facility] CO2 TOTAL 31 23 - 31 mmol/L [facility] AGAP 11 2 - 16 [facility] BUN 13 7 - 23 mg/dL [facility] GLUCOSE 144 (H) 70 - 110 mg/dL [facility] CREATININE 0.71 0.50 - 1.04 mg/dL [facility] TOTAL BILI 0.4 0.1 - 1.1 mg/dL [facility] CALCIUM 9.7 8.6 - 10.6 mg/dL [facility] T PROTEIN 7.5 6.3 - 8.2 g/dL [facility] ALBUMIN 4.2 3.5 - 5.0 g/dL [facility] ALK PHOS 96 34 - 122 U/L [facility] ALT(SGPT) 47 9 - 51 U/L [facility] AST(SGOT) 55 (H) 13 - 40 U/L [facility] eGFR 83.1 mL/min/1.73m2 [facility] eGFR 100.8 mL/min/1.73m2 [facility] Specimen Blood Narrative Performed At Association of Glomerular Filtration Rate (GFR) and Staging of Kidney Disease* [facility] + + + + [facility] | GFR (mL/min/1.73 m2)| With Kidney Damage|Without [...] tests). Performing Organization Address City/State/Zipcode Phone Number [facility] [place] CLIA: [id number], [address] [place] [address] [facility] documented in this encounter Visit Diagnoses Diagnosis Congestive heart failure, unspecified HF chronicity, unspecified heart failure type documented in this encounter Insurance Type Payer Benefit Subscriber ID Effective Phone Address Plan / Dates Group Medicare MEDICARE MEDICARE xxxxxxxxxxx 2008- [phone] [address] [place] [address] Medicaid [id number] MEDICAID xxxxxxxxx 2018- [phone] [facility] Present [id number] [place] [address] documented as of this encounter"
[2018-11-03] MEDS ORDERED: TRAMADOL HCL 50 MG TAB PO ONE (21:00)
--- NOTE | 2018-11-03 22:19 | Diagnostic Imaging Report ---
CT BRAIN WO, CT CERVICAL SPINE WO HISTORY: Trauma COMPARISON: Head and cervical spine CT 11/02/2016 TECHNIQUE: Axial noncontrast CT images were obtained through the head and cervical spine. Coronal and sagittal reconstructions obtained from the axial data. One or more of the following dose reduction techniques were used: Automated exposure control, adjustment of the mA and/or kV according to patient size, and/or utilization of iterative reconstruction technique. DISCUSSION: HEAD CT: Scalp/Skull: Unremarkable. Brain sulci: Appropriate for patient's age. Ventricles: Normal in size and configuration. No hydrocephalus. Extra-axial spaces: No masses or fluid collections. Mild carotid siphon calcifications. Parenchyma: Mild periventricular white matter hypodensities are likely chronic microvascular ischemic changes. Otherwise, no masses, hemorrhage, or large vascular territory acute infarct. Dural sinuses: No abnormal densities. Sellar/Suprasellar region: Intact. Skull base: Intact. Incidental findings: None. CERVICAL SPINE CT: Mild bone demineralization limits evaluation. Cervical lordosis is straightened. There is no scoliosis. No definite acute fracture or compression deformity is seen. The craniocervical junction is intact. No gross spinal canal masses are seen. The paravertebral and paraspinal soft tissues are unremarkable. Mild to moderate multilevel spondylosis is most prominent at C5-C6. Grade 1 anterolisthesis of C3 on C4 and C4 on C5 are likely due to facet arthrosis. There is at least mild canal stenosis from C3-C4 to C5-C6 due to posterior disc osteophyte complexes. Advanced atlantoaxial arthrosis is present as well. Incidental findings: Mild left carotid bulb calcified plaque is present. Right IJ central line is partially visualized. IMPRESSION: Head CT: 1. No acute intracranial abnormalities. 2. Mild supratentorial chronic microvascular ischemic change. Cervical Spine CT: 1. No acute osseous abnormalities in the cervical spine. 2. Mild to moderate multilevel spondylosis, most prominent at C5-C6. Signed by: Dr. Gerardo Dempsey M.D. on 11/03/2018 10:15 PM
--- NOTE | 2018-11-03 22:34 | Diagnostic Imaging Report ---
CT THORACIC SPINE WO, CT LUMBAR SPINE WO HISTORY: Trauma COMPARISON: Chest CT 07/12/2018, concurrent cervical spine CT TECHNIQUE: Axial CT images of the thoracic and lumbar spine were obtained without intravenous contrast. Coronal/sagittal reformations were created. One or more of the following dose reduction techniques were used: Automated exposure control, adjustment of the mA and/or kV according to patient size, and/or utilization of iterative reconstruction technique. FINDINGS: Mild bone demineralization limits evaluation. Thoracic kyphosis and lumbar lordosis are preserved. Mild lumbar levoscoliosis is centered at L4. No definite acute fracture or compression deformity is seen. No gross spinal canal mass is seen. The paravertebral and paraspinal soft tissues are unremarkable. Degenerative changes: Mild multilevel thoracic spondylosis is present without gross canal stenosis. Mild right foraminal stenosis at T4-T5 is due to facet hypertrophy. Mild to moderate multilevel lumbar spondylosis is present as well. Mild bilateral sacroiliac degenerative changes are also seen. L1-L2: At least mild canal stenosis due to disc bulge. Mild left foraminal stenosis due to disc bulge and facet arthrosis. No gross right foraminal stenosis. L2-L3: At least mild canal stenosis due to disc bulge. Mild right and mild to moderate left foraminal stenoses due to disc bulge and facet arthrosis. L3-L4: Mild to moderate right and mild left foraminal stenoses due to disc bulge and facet arthrosis. No gross canal stenosis. L4-L5: Grade 1 anterolisthesis of L4 on L5 due to prominent bilateral facet arthrosis. At least mild canal stenosis due to uncovered disc bulge and ligamentum flavum thickening. Mild to moderate right and mild left foraminal stenoses due to uncovered disc bulge and facet arthrosis. L5-S1: Mild bilateral foraminal stenoses due to disc bulge and facet arthrosis. No gross canal stenosis. Additional findings: Mild interstitial and ground glass opacities in both lungs are nonspecific. Right IJ central line terminates in the SVC. Small calcified bilateral hilar lymph nodes are compatible with remote granulomatous disease the esophagus is mildly distended. Suture material is seen along the stomach. Surgical clips are seen in the gallbladder fossa. The pancreas is mildly atrophic. IMPRESSION: 1. No acute osseous abnormalities. 2. Multilevel mild thoracic and mild to moderate lumbar spondylosis as described above. Signed by: Dr. Gerardo Dempsey M.D. on 11/03/2018 10:30 PM
--- NOTE | 2018-11-03 22:36 | Diagnostic Imaging Report ---
X-ray bilateral knees 3 views each HISTORY: Pain COMPARISON: None available. FINDINGS: RIGHT: No displaced fracture. The osseous alignment is within normal limits. The joint spaces are well-maintained. The soft tissues appear unremarkable. LEFT: No displaced fracture. The osseous alignment is within normal limits. The joint spaces are well-maintained. The soft tissues appear unremarkable. IMPRESSION: No acute radiographic abnormality. Signed by: Kobe Swann DO on 11/03/2018 10:32 PM
--- NOTE | 2018-11-03 22:44 | Diagnostic Imaging Report ---
X-RAY PELVIS ONE VIEW, 2 IMAGES HISTORY: Pain. Fall COMPARISON: Lumbar spine CT 11/03/2018 FINDINGS: Bones: No acute displaced fracture. Osseous alignment is within normal limits. Joints: Osteophytes in the lower lumbar spine, sacroiliac joints, pubic symphysis, and bilateral hips. There are bilateral femoral acetabular joint spaces are within normal limits. Soft tissues: Enthesopathic changes about the pelvis and right greater trochanter. The pelvic osseous structures are partially obscured by bowel gas. IMPRESSION: No acute radiographic osseous abnormality. Degenerative changes in the lower lumbar spine, hips, and pelvis. Signed by: Kobe Swann DO on 11/03/2018 10:40 PM
[2018-11-03] MEDS ORDERED: HYDROCODONE/APAP 10MG-325MG TAB PO ONE (22:45)
--- NOTE | 2018-11-03 22:47 | Diagnostic Imaging Report ---
EXAMINATION: CHEST SINGLE (PORTABLE) INDICATION: Fall COMPARISON: Thoracic spine CT 11/03/2018 FINDINGS: AP view TUBES and LINES: Right chest wall chemotherapy port with right IJ central venous catheter component, tip in the right atrium. LUNGS: Lungs are not well inflated. Bibasilar atelectasis. No consolidations. PLEURA: No pleural effusion or pneumothorax. HEART AND MEDIASTINUM: The cardiomediastinal silhouette is unremarkable. BONES AND SOFT TISSUES: No acute osseous lesion. Soft tissues are unremarkable. UPPER ABDOMEN: Surgical changes in the left upper abdomen. IMPRESSION: Bibasilar atelectasis. Signed by: Kobe Swann DO on 11/03/2018 10:44 PM
[2018-11-03 23:14] VITALS: BP 120/97
== END 2018-11-03 23:36 | disposition home or self-care (01) ==
LOC: ER 20:51
DX: S16.1XXA Strain of muscle, fascia and tendon at neck level, initial encounter (principal); S00.93XA Contusion of unspecified part of head, initial encounter; S80.02XA Contusion of left knee, initial encounter; S80.01XA Contusion of right knee, initial encounter; S33.5XXA Sprain of ligaments of lumbar spine, initial encounter; S23.3XXA Sprain of ligaments of thoracic spine, initial encounter; W01.198A Fall on same level from slipping, tripping and stumbling with subsequent striking against other object, initial encounter; Y92.009 Unspecified place in unspecified non-institutional (private) residence as the place of occurrence of the external cause
CPT/HCPCS: 70450; 71045; 72125; 72128; 72131; 72170; 99284